=== PATIENT | female | born 1945 | race Caucasian/White ===

== ENCOUNTER 2024-01-26 17:24 | Inpatient (IN) | payer MEDICARE ==
--- NOTE | 2024-01-26 17:38 | ED ---
General Adult HPI - General Chief complaint: Nausea/Vomiting/Diarrhea Stated complaint: Diarrhea Time Seen by Provider: 01/26/24 17:26 Source: patient, EMS Mode of arrival: EMS Limitations: no limitations - History of Present Illness Initial comments: Patient presents to the ED by ambulance for evaluation. Patient states that she has had numerous bouts of diarrhea since very early this morning. Patient states that she was just discharged from a fdc yesterday. Patient states that she has a sacral decubitus ulcer and a home health nurse was arranged for her. She states that her home health nurse advised that she come to the ED today due to her diarrhea. Patient admits to having a dry mouth as well. Patient states that she is paralyzed from her waist down. Patient denies having any pain. Patient denies nausea or vomiting. Patient denies fever or chills, headache, chest pain, dyspnea, cough or cold symptoms, palpitations, dizziness, abdominal pain, bloody or melanotic stool, or any other symptoms or complaints. Patient states that she is unsure of known sick contact. Patient states that she was recently on a course of antibiotics for a sinus infection, but she is unsure of the name of the antibiotics that she was taking. - Related Data Home Medications Medication Instructions Recorded Confirmed Alendronate Sodium [Fosamax] 70 mg PO CARLSON 01/26/24 01/26/24 Apixaban [Eliquis] 5 mg PO BID 01/26/24 01/26/24 FLUoxetine HCL [PROzac] 40 mg PO DAILY 01/26/24 01/26/24 Ferrous Sulfate [Iron] 325 mg PO TID 01/26/24 01/26/24 Furosemide [Lasix] 20 mg PO DAILY 01/26/24 01/26/24 L.acidoph,Paracasei, B.lactis 1 cap PO HS@2200 01/26/24 01/26/24 [Probiotic] Loperamide [Imodium] 2 mg PO QID PRN 01/26/24 01/26/24 Loratadine [Claritin] 10 mg PO DAILY 01/26/24 01/26/24 Midodrine HCl [ProAmatine] 10 mg PO BID 01/26/24 01/26/24 Midodrine HCl [ProAmatine] 10 mg PO DAILY PRN 01/26/24 01/26/24 Mirtazapine [Remeron] 30 mg PO HS@2100 01/26/24 01/26/24 Multivitamins, Thera [Multivitamin 1 tab PO DAILY 01/26/24 01/26/24 (formulary)] Omeprazole [PriLOSEC] 20 mg PO DAILY 01/26/24 01/26/24 Psyllium Husk 100% [Metamucil 1 packet PO DAILY PRN 01/26/24 01/26/24 Packet] Sodium Chloride Tab 1 gm PO Q8H 01/26/24 01/26/24 busPIRone HCl [Buspar] 5 mg PO Q8H 01/26/24 01/26/24 methylPREDNISolone Dose Pack See Taper PO DIRECTED 01/26/24 01/26/24 [Medrol Dose Pack] oxyCODONE-APAP 10-325MG [Percocet 1 tab PO Q4H PRN 01/26/24 01/26/24 10-325 mg] Allergies Allergy/AdvReac Type Severity Reaction Status Date / Time No Known Allergies Allergy Verified 01/26/24 18:12 Review of Systems ROS Statement: Those systems with pertinent positive or pertinent negative responses have been documented in the HPI. ROS Other: All systems not noted in ROS Statement are negative. Past Medical History Past Medical History: No Reported History History of Any Multi-Drug Resistant Organisms: None Reported Past Surgical History: No Surgical Hx Reported Past Psychological History: Anxiety, Depression Smoking Status: Never smoker Past Alcohol Use History: None Reported Past Drug Use History: None Reported General Exam Limitations: no limitations General appearance: alert, in no apparent distress Head exam: Present: atraumatic Eye exam: Present: normal appearance, PERRL ENT exam: Present: mucous membranes dry Neck exam: Present: other (Trachea is in midline). Absent: tenderness, meningismus Respiratory exam: Present: normal lung sounds bilaterally. Absent: respiratory distress, wheezes, rales, rhonchi, stridor Cardiovascular Exam: Present: regular rate, normal rhythm, normal heart sounds, other (Normal radial pulses bilaterally) GI/Abdominal exam: Present: soft. Absent: distended, tenderness, guarding Rectal exam: Present: decreased rectal tone, other (Dark green-colored stool was retrieved on digital rectal examination and sent to lab for Hemoccult testing; stage IV sacral decubitus ulcer with dressing in place). 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 Rosales. He accepts hospital floor admission at this time. I have explained to him that I feel that the patient's low blood pressure readings are likely due to dehydration secondary to her multiple bouts of diarrhea. Patient is C. dif ficile positive. Patient is afebrile. Patient also reports that her blood pressure always runs low. Dr. Rosales is aware that the patient's CT abdomen/pelvis has yet to be read by radiology. Medical Decision Making - Medical Decision Making Was pt. sent in by a medical professional or institution (, PA, MUSIC THERAPY TEACHER, urgent care, hospital, or fdc...) When possible be specific @ -No Did you speak to anyone other than the patient for history (EMS, parent, family, police, friend...)? What history was obtained from this source @ -No Did you review nursing and triage notes (agree or disagree)? Why? @ -I reviewed and agree with nursing and triage notes Were old charts reviewed (outside hosp., previous admission, EMS record, old EKG, old radiological studies, urgent care reports/EKG's, fdc records)? Report findings @ -No old charts were reviewed Differential Diagnosis (chest pain, altered mental status, abdominal pain women, abdominal pain men, vaginal bleeding, weakness, fever, dyspnea, syncope, headache, dizziness, GI bleed, back pain, seizure, CVA, palpatations, mental health, musculoskeletal)? @ -Diarrhea, colitis, enteritis, C. difficile, viral illness, dehydration, electrolyte abnormality, renal disease, hypotension, sepsis, sacral decubitus ulcer, GI bleed, anemia, hypovolemia, medication reaction, gastroenteritis, food toxicity EKG interpreted by me (3pts min.). @ -None done X-rays interpreted by me (1pt min.). @ -None done CT interpreted by me (1pt min.). @ - U/S interpreted by me (1pt. min.). @ -None done What testing was considered but not performed or refused? (CT, X-rays, U/S, labs)? Why? @ -None What meds were considered but not given or refused? Why? @ -None Did you discuss the management of the patient with other professionals (professionals i.e. , PA, MUSIC THERAPY TEACHER, lab, RT, psych nurse, social professionals, survey methodologist, teacher, financial services officer, employment case manager)? Give summary @ -As above Was smoking cessation discussed for >3mins.? @ -No Was critical care preformed (if so, how long)? @ -Yes, 30 minutes Were there social determinants of health that impacted care today? How? (Homelessness, low income, unemployed, alcoholism, drug addiction, transportation, low edu. Level, literacy, decrease access to med. care, retirement, rehab)? @ -No Was there de-escalation of care discussed even if they declined (Discuss DNR or withdrawal of care, Hospice)? DNR status @ -No What co-morbidities impacted this encounter? (DM, HTN, Smoking, COPD, CAD, Cancer, CVA, ARF, Chemo, Hep., AIDS, mental health diagnosis, sleep apnea, morbid obesity)? @ -Paraplegia Was patient admitted / discharged? Hospital course, mention meds given and route, prescriptions, significant lab abnormalities, going to OR and other pertinent info. @ -Patient reports having multiple bouts of diarrhea since early this morning, and she continues to have diarrhea while in the ED. Patient appears dehydrated on examination, and she has had low blood pressure readings. Patient is afebrile. Patient stool C. difficile test is positive. Patient's stool Hemoccult is negative. Patient has been treated with IV fluids and IV anti biotics in the ED. A CT abdomen/pelvis with IV contrast was obtained, but radiology has yet to read the patient CT. Patient has a soft and nontender abdominal exam. I suspect that the patient's symptoms and low blood pressure readings are likely due to dehydration secondary to multiple bouts of diarrhea from C. difficile colitis. Will continue IV fluid hydration, IV antibiotics and blood pressure monitoring. Case has been discussed with Dr. Rosales who has accepted hospital admission. Dr. Rosales and Dr. Pang are aware of the patient's pending CT report and will follow up. Patient and daughter's x 2 are aware of the patient's test results, and they both agree with hospital admission at this time.] Undiagnosed new problem with uncertain prognosis? @ -No Drug Therapy requiring intensive monitoring for toxicity (Heparin, Nitro, Insulin, Cardizem)? @ -No Were any procedures done? @ -No Diagnosis/symptom? @ -C. difficile colitis and diarrhea Acute, or Chronic, or Acute on Chronic? @ -Acute Uncomplicated (without systemic symptoms) or Complicated (systemic symptoms)? @ -Default Side effects of treatment? @ -No Exacerbation, Progression, or Severe Exacerbation? @ -No Poses a threat to life or bodily function? How? (Chest pain, [place], [place], pneumonia, PE, COPD, DKA, ARF, appy, cholecystitis, CVA, Diverticulitis, Homicidal, Suicidal, threat to staff... and all critical care pts) @ -No Diagnosis/symptom? @ -Dehydration and hypotension Acute, or Chronic, or Acute on Chronic? @ -Default Uncomplicated (without systemic symptoms) or Complicated (systemic symptoms)? @ -Default Side effects of treatment? @ -None Exacerbation, Progression, or Severe Exacerbation] @ -No Poses a threat to life or bodily function? @ -Possible - Lab Data Result diagrams: 01/26/24 19:42 01/26/24 19:42 Lab Results 01/26/24 01/26/24 01/26/24 Range/Units 18:32 19:42 19:42 WBC 23.5 H (3.8-10.6) k/uL RBC 3.50 L (3.80-5.40) m/uL Hgb 10.4 L (11.4-16.0) gm/dL Hct 33.9 L (34.0-46.0) % MCV 96.9 (80.0-100.0) fL MCH 29.7 (25.0-35.0) pg MCHC 30.7 L (31.0-37.0) g/dL RDW 16.1 H (11.5-15.5) % Plt Count 470 H (150-450) k/uL MPV 7.2 Neutrophils % 92 % Lymphocytes % 3 % Monocytes % 4 % Eosinophils % 1 % Basophils % 0 % Neutrophils # 21.6 H (1.3-7.7) k/uL Lymphocytes # 0.7 L (1.0-4.8) k/uL Monocytes # 0.9 (0-1.0) k/uL Eosinophils # 0.1 (0-0.7) k/uL Basophils # 0.1 (0-0.2) k/uL Hypochromasia Slight Anisocytosis Slight PT (10.0-12.5) sec INR (<1.2) APTT (22.0-30.0) sec Sodium 133 L (137-145) mmol/L Potassium 3.5 (3.5-5.1) mmol/L Chloride 104 (98-107) mmol/L Carbon Dioxide 24 (22-30) mmol/L Anion Gap 5 mmol/L BUN 15 (7-17) mg/dL Creatinine 0.67 (0.52-1.04) mg/dL Est GFR (CKD-EPI)AfAm >90 (>60 ml/min/1.73 sqM) Est GFR (CKD-EPI)NonAf 83 (>60 ml/min/1.73 sqM) Glucose 123 H (74-99) mg/dL Lactic Ac Sepsis Rflx Plasma Lactic Acid Ronak (0.7-2.0) mmol/L Calcium 7.9 L (8.4-10.2) mg/dL Total Bilirubin 0.6 (0.2-1.3) mg/dL AST 42 H (14-36) U/L ALT 28 (4-34) U/L Alkaline Phosphatase 113 (38-126) U/L Total Protein 5.3 L (6.3-8.2) g/dL Albumin 2.5 L (3.5-5.0) g/dL Lipase 19 L (23-300) U/L Stool Occult Blood Negative (Negative) C. difficile (EIA) Intrp (Negative) 01/26/24 01/26/24 01/26/24 Range/Units 19:42 19:42 19:42 WBC (3.8-10.6) k/uL RBC (3.80-5.40) m/uL Hgb (11.4-16.0) gm/dL Hct (34.0-46.0) % MCV (80.0-100.0) fL MCH (25.0-35.0) pg MCHC (31.0-37.0) g/dL RDW (11.5-15.5) % Plt Count (150-450) k/uL MPV Neutrophils % % Lymphocytes % % Monocytes % % Eosinophils % % Basophils % % Neutrophils # (1.3-7.7) k/uL Lymphocytes # (1.0-4.8) k/uL Monocytes # (0-1.0) k/uL Eosinophils # (0-0.7) k/uL Basophils # (0-0.2) k/uL Hypochromasia Anisocytosis PT 10.4 (10.0-12.5) sec INR 0.9 (<1.2) APTT 25.9 (22.0-30.0) sec Sodium (137-145) mmol/L Potassium (3.5-5.1) mmol/L Chloride (98-107) mmol/L Carbon Dioxide (22-30) mmol/L Anion Gap mmol/L BUN (7-17) mg/dL Creatinine (0.52-1.04) mg/dL Est GFR (CKD-EPI)AfAm (>60 ml/min/1.73 sqM) Est GFR (CKD-EPI)NonAf (>60 ml/min/1.73 sqM) Glucose (74-99) mg/dL Lactic Ac Sepsis Rflx Plasma Lactic Acid Ronak 2.6 H* (0.7-2.0) mmol/L Calcium (8.4-10.2) mg/dL Total Bilirubin (0.2-1.3) mg/dL AST (14-36) U/L ALT (4-34) U/L Alkaline Phosphatase (38-126) U/L Total Protein (6.3-8.2) g/dL Albumin (3.5-5.0) g/dL Lipase (23-300) U/L Stool Occult Blood (Negative) C. difficile (EIA) Intrp Positive A (Negative) 01/26/24 Range/Units 20:22 WBC (3.8-10.6) k/uL RBC (3.80-5.40) m/uL Hgb (11.4-16.0) gm/dL Hct (34.0-46.0) % MCV (80.0-100.0) fL MCH (25.0-35.0) pg MCHC (31.0-37.0) g/dL RDW (11.5-15.5) % Plt Count (150-450) k/uL MPV Neutrophils % % Lymphocytes % % Monocytes % % Eosinophils % % Basophils % % Neutrophils # (1.3-7.7) k/uL Lymphocytes # (1.0-4.8) k/uL Monocytes # (0-1.0) k/uL Eosinophils # (0-0.7) k/uL Basophils # (0-0.2) k/uL Hypochromasia Anisocytosis PT (10.0-12.5) sec INR (<1.2) APTT (22.0-30.0) sec Sodium (137-145) mmol/L Potassium (3.5-5.1) mmol/L Chloride (98-107) mmol/L Carbon Dioxide (22-30) mmol/L Anion Gap mmol/L BUN (7-17) mg/dL Creatinine (0.52-1.04) mg/dL Est GFR (CKD-EPI)AfAm (>60 ml/min/1.73 sqM) Est GFR (CKD-EPI)NonAf (>60 ml/min/1.73 sqM) Glucose (74-99) mg/dL Lactic Ac Sepsis Rflx Y Plasma Lactic Acid Ronak (0.7-2.0) mmol/L Calcium (8.4-10.2) mg/dL Total Bilirubin (0.2-1.3) mg/dL AST (14-36) U/L ALT (4-34) U/L Alkaline Phosphatase (38-126) U/L Total Protein (6.3-8.2) g/dL Albumin (3.5-5.0) g/dL Lipase (23-300) U/L Stool Occult Blood (Negative) C. difficile (EIA) Intrp (Negative) - Radiology Data CT abdomen/pelvis with IV contrast: Critical Care Time Critical Care Time: Yes Total Critical Care Time: 30 Disposition Clinical Impression: Diarrhea, Dehydration, C. difficile colitis, Hypotension Disposition: ADMITTED IP TO THIS HOSP Is patient prescribed a controlled substance at d/c from ED?: No Time of Disposition: 23:12
[2024-01-26] MEDS: SODIUM CHLORIDE 0.9% 1,000 ML IV ONE ×2 (18:26→20:58)
[2024-01-26 20:04] LABS: Anisocytosis Slight; Basophils # (A) 0.1 k/uL (0-0.2); Basophils % (A) 0 %; Eosinophils # (A) 0.1 k/uL (0-0.7); Eosinophils % (A) 1 %; HCT 33.9 % (34.0-46.0); HGB 10.4 gm/dL (11.4-16.0); Hypochromasia Slight; Lymphocytes # (A) 0.7 k/uL (1.0-4.8); Lymphocytes % (A) 3 %; MCH 29.7 pg (25.0-35.0); MCHC 30.7 g/dL (31.0-37.0); MCV 96.9 fL (80.0-100.0); Mean Platelet Volume 7.2; Monocytes # (A) 0.9 k/uL (0-1.0); Monocytes % (A) 4 %; Neutrophils # (A) 21.6 k/uL (1.3-7.7); Neutrophils % (A) 92 %; Platelet Count 470 k/uL (150-450); RDW 16.1 % (11.5-15.5); WBC 23.5 k/uL (3.8-10.6)
[2024-01-26 20:19] LABS: ALT 28 U/L (4-34); AST 42 U/L (14-36); African American GFR (CKD) >90 (>60 ml/min/1.73 sqM); Albumin 2.5 g/dL (3.5-5.0); Alkaline Phosphatase 113 U/L (38-126); Anion Gap 5 mmol/L; Blood Urea Nitrogen 15 mg/dL (7-17); Calcium 7.9 mg/dL (8.4-10.2); Carbon Dioxide 24 mmol/L (22-30); Chloride 104 mmol/L (98-107); Glucose 123 mg/dL (74-99); Lipase 19 U/L (23-300); Non-African American GFR(CKD) 83 (>60 ml/min/1.73 sqM); Potassium 3.5 mmol/L (3.5-5.1); Sodium 133 mmol/L (137-145); Total Bilirubin 0.6 mg/dL (0.2-1.3); Total Protein 5.3 g/dL (6.3-8.2)
[2024-01-26 20:29] LABS: INR 0.9 (<1.2)
[2024-01-26] MEDS ORDERED: SODIUM CHLORIDE 0.9% 500 ML 500 ML IV ONE (20:29)
[2024-01-26 20:30] LABS: Partial Thromboplastin Time 25.9 sec (22.0-30.0); Prothrombin Time 10.4 sec (10.0-12.5)
[2024-01-26] MEDS: HYDROmorphone 0.5 MG/0.5 ML SYRINGE IVP STA (20:55)
[2024-01-26] MEDS: LEVOFLOXACIN 750MG-D5W PMX 750 MG in DEXTROSE/WATER 1 150ML.BAG IVPB STA (21:25)
[2024-01-26] MEDS: metroNIDAZOLE-NS PMX 500 MG in SALINE 1 100ML.BAG IVPB STA (22:10)
[2024-01-26] MEDS ORDERED: NALOXONE 0.4 MG/ML 1 ML VIAL IV PRN (23:13)
--- NOTE | 2024-01-26 23:44 | CT ---
EXAMINATION TYPE: CT abdomen pelvis w con CT DLP: 819.6 mGycm, Automated exposure control for dose reduction was used. DATE OF EXAM: 01/26/2024 9:52 PM COMPARISON: None. CLINICAL INDICATION:Female, 78 years old with history of Diarrhea; Pt comes in via EMS due to c/o loo se stools. TECHNIQUE: CT abdomen and pelvis performed after administration of IV contrast. Multiplanar reformats were generated. Contrast used:100 mL of Isovue 300 with IV Contrast, (none if empty) Oral contrast used: without Oral Contrast (none if empty) FINDINGS: Lower lungs show mild bilateral lower lobe stranding suggestive of subsegmental atelectasis. Slightly more patchy consolidative appearance at the right lung base is concerning for possible superimposed infectious process or aspiration. Small calcified plaque or granuloma in the right lung base. Heart appears normal in size. Density suggests calcifications or postoperative changes in the region of the mitral valve. The liver is unremarkable. Portal vein is enhancing. Mild prominence of the biliary tree status post cholecystectomy, likely normal. Pancreas appears mildly fatty infiltrated without acute finding. Spleen is unremarkable. Mild thicken ing of the adrenals could be related to hyperplasia. Moderate atherosclerotic calcification of the aorta and branches. There is no major vascular occlusio n or critical stenosis seen. No AAA. Moderate-sized hiatal hernia with postoperative changes seen in this area and extending to the stomac h. Stomach is nondistended. Duodenal sweep is mildly prominent. Continuing distally, there is suggest ion of a couple sites of bowel anastomosis in the left abdomen without evidence of small bowel obstru ction. Appendix is not seen with certainty. There is a moderate to large degree of wall thickening seen thro ughout the colon with an appearance that could be considered thumbprinting. There is colonic anastomo sis in the proximal sigmoid region. Thickened colonic wall appears to extend through the sigmoid colo n to the level of the rectum. There is moderate stool throughout. The kidneys appear to enhance symmetrically. Lateral hypodense small renal nodules, not fully charact eristic are probably cysts. Bladder is decompressed, contains a Irwin catheter extending towards the right. There is a small amount of residual urine, and there is gas seen adjacent to the catheter and in the anterior bladder. There are multiple postoperative structures including sheyla along the anterior abdominal wall. Diff use thinning/weakness of the musculature. An element of diffuse haziness of the subcutaneous fat. Generalized osteopenia. There is a sacral decubitus ulcer, and at its depths appears to reach close t o the coccyx, and the appearance of the bone suggests possible chronic osteomyelitis. There is no adryan ar-cut osseous destructive abscess identified at this time. Some presacral fat stranding suggests seq uela of inflammation/infection. There is no clearly acute bony abnormality. IMPRESSION: 1. Nonspecific diffuse colitis, most likely infectious etiology with C. difficile a leading consider ation. Correlate with clinical factors. 2. Mild opacity in the right lung base, could be related to pneumonia or aspiration. Follow-up advis ed. 3. Sacral decubitus ulcer with chronic osteomyelitic changes of the underlying bone. 4. Multiple other chronic and likely several findings, as above.
[2024-01-26] MEDS: SODIUM CHLORIDE 0.9% 1,000 ML IV SCH (23:52)
[2024-01-27 00:18] LABS: Amorphous Sediment,Urine Occasional /hpf; Appearance,Urine Cloudy (Clear); Bacteria,Urine Moderate /hpf; Bilirubin,Urine Negative (Negative); Blood,Urine Trace (Negative); Color,Urine Yellow; Glucose,Urine (UA) Negative (Negative); Hyaline Casts,Urine 14 /lpf (0-2); Ketones,Urine Negative (Negative); Leukocyte Esterase,Urine Large (Negative); Mucus,Urine Occasional /hpf; Nitrite,Urine Positive (Negative); Protein,Urine 1+ (Negative); RBC,Urine 4 /hpf (0-5); Specific Gravity,Urine 1.027 (1.001-1.035); Squamous Epithelial Cell,Urine 3 /hpf (0-4); Triple Phosphate Crystal,Urine Moderate /hpf; Urobilinogen,Urine <2.0 mg/dL (<2.0); WBC,Urine 136 /hpf (0-5)
[2024-01-27] MEDS: MIRTAZAPINE 15 MG TAB PO STA (00:29)
[2024-01-27] MEDS: HYDROmorphone 0.5 MG/0.5 ML SYRINGE IVP PRN (00:30)
[2024-01-27 07:13] LABS: Anisocytosis Slight; Basophils % (A) 0 %; Eosinophils # (A) 0.2 k/uL (0-0.7); Eosinophils % (A) 1 %; HCT 30.9 % (34.0-46.0); HGB 9.3 gm/dL (11.4-16.0); Hypochromasia Moderate; Lymphocytes # (A) 1.2 k/uL (1.0-4.8); Lymphocytes % (A) 6 %; MCH 29.5 pg (25.0-35.0); MCHC 30.1 g/dL (31.0-37.0); MCV 97.8 fL (80.0-100.0); Mean Platelet Volume 7.3; Monocytes # (A) 0.7 k/uL (0-1.0); Monocytes % (A) 4 %; Neutrophils # (A) 18.7 k/uL (1.3-7.7); Neutrophils % (A) 89 %; Platelet Count 460 k/uL (150-450); RBC 3.16 m/uL (3.80-5.40); RDW 16.3 % (11.5-15.5)
[2024-01-27 07:23] LABS: ALT 25 U/L (4-34); AST 29 U/L (14-36); African American GFR (CKD) >90 (>60 ml/min/1.73 sqM); Albumin 2.3 g/dL (3.5-5.0); Alkaline Phosphatase 107 U/L (38-126); Anion Gap 3 mmol/L; Blood Urea Nitrogen 12 mg/dL (7-17); Calcium 7.7 mg/dL (8.4-10.2); Carbon Dioxide 22 mmol/L (22-30); Chloride 111 mmol/L (98-107); Glucose 73 mg/dL (74-99); Non-African American GFR(CKD) 86 (>60 ml/min/1.73 sqM); Potassium 3.3 mmol/L (3.5-5.1); Sodium 136 mmol/L (137-145); Total Bilirubin 0.5 mg/dL (0.2-1.3); Total Protein 4.9 g/dL (6.3-8.2)
[2024-01-27] MEDS: SODIUM CHLORIDE 0.9% 1,000 ML IV ONE (08:00)
[2024-01-27] MEDS: metroNIDAZOLE-NS PMX 500 MG in SALINE 1 100ML.BAG IVPB SCH (09:22)
[2024-01-27] MEDS ORDERED: MIDODRINE 5 MG TAB PO PRN (09:40)
--- NOTE | 2024-01-27 09:50 | P.HPIM ---
History of Present Illness Patient is a 78-year-old female was sent in because of multiple episodes of diarrhea and hyponatremia and dehydration. Patient is found to have C. difficile colitis. Patient was on antibiotics on multiple occasions after her hospitalization change on hospital 2 months ago. Patient was also started on antibiotics couple days ago for sinusitis. Patient does not have any significant fever patient is tachycardic patient does have history of atrial fibrillation patient is going in and out of atrial fibrillation and atrial flutter and sinus tachycardia. Patient is on Eliquis for atrial fibrillation. Patient is hyponatremic from hypovolemia. Patient will be given bolus of IV fluids followed by lactated Ringer's patient's lactate was elevated on admission which has come down at this time patient is hyperchloremic. Patient is also on midodrine for hypotension as an outpatient patient blood pressure is low here as well. REVIEW OF SYSTEMS: CONSTITUTIONAL: No fever, no malaise, no fatigue. HEENT: No recent visual problems or hearing problems. Denied any sore throat. CARDIOVASCULAR: No chest pain, orthopnea, PND, no palpitations, no syncope. PULMONARY: No shortness of breath, no cough, no hemoptysis. GASTROINTESTINAL: As mentioned in HPI NEUROLOGICAL: No headaches, no weakness, no numbness. HEMATOLOGICAL: Denies any bleeding or petechiae. GENITOURINARY: Denies any burning micturition, frequency, or urgency. MUSCULOSKELETAL/RHEUMATOLOGICAL: Denies any joint pain, swelling, or any muscle pain. ENDOCRINE: Denies any polyuria or polydipsia. The rest of the 14-point review of systems is negative. PHYSICAL EXAMINATION: GENERAL: The patient is alert and oriented x3, not in any acute distress. Well developed, well nourished. HEENT: Pupils are round and equally reacting to light. EOMI. No scleral icterus. No conjunctival pallor. Normocephalic, atraumatic. No pharyngeal erythema. No thyromegaly. CARDIOVASCULAR: S1 and S2 present. No murmurs, rubs, or gallops. PULMONARY: Chest is clear to auscultation, no wheezing or crackles. ABDOMEN: Soft, nontender, nondistended, normoactive bowel sounds. No palpable organomegaly. MUSCULOSKELETAL: No joint swelling or deformity. EXTREMITIES: No cyanosis, clubbing, or pedal edema. NEUROLOGICAL: Gross neurological examination did not reveal any focal deficits. Significant generalized weakness and muscle wasting in both legs SKIN: Stage IV sacral decubitus ulcer Assessment and plan -Severe sepsis secondary to C. difficile colitis patient CT of the abdomen showed diffuse colitis probably consistent with C. difficile colitis. Patient will be on oral vancomycin. -Sacral decubitus ulcer stage IV does not appear to be infected but will consult infectious disease. -Atrial fibrillation with rapid ventricular rate IV fluids for now and secondary to hypovolemia resume Eliquis -Hypovolemic hyponatremia: IV fluids as mentioned above Gastroesophageal reflux disease DVT prophylaxis: On Eliquis Past Medical History Past Medical History: No Reported History History of Any Multi-Drug Resistant Organisms: None Reported Past Surgical History: No Surgical Hx Reported Past Psychological History: Anxiety, Depression Smoking Status: Never smoker Past Alcohol Use History: None Reported Past Drug Use History: None Reported Medications and Allergies Home Medications Medication Instructions Recorded Confirmed Type Alendronate Sodium [Fosamax] 70 mg PO CARLSON 01/26/24 01/26/24 History Apixaban [Eliquis] 5 mg PO BID 01/26/24 01/26/24 History FLUoxetine HCL [PROzac] 40 mg PO DAILY 01/26/24 01/26/24 History Ferrous Sulfate [Iron] 325 mg PO TID 01/26/24 01/26/24 History Furosemide [Lasix] 20 mg PO DAILY 01/26/24 01/26/24 History L.acidoph,Paracasei, B.lactis 1 cap PO HS@2200 01/26/24 01/26/24 History [Probiotic] Loperamide [Imodium] 2 mg PO QID PRN 01/26/24 01/26/24 History Loratadine [Claritin] 10 mg PO DAILY 01/26/24 01/26/24 History Midodrine HCl [ProAmatine] 10 mg PO BID 01/26/24 01/26/24 History Midodrine HCl [ProAmatine] 10 mg PO DAILY PRN 01/26/24 01/26/24 History Mirtazapine [Remeron] 30 mg PO HS@2100 01/26/24 01/26/24 History Multivitamins, Thera [Multivitamin 1 tab PO DAILY 01/26/24 01/26/24 History (formulary)] Omeprazole [PriLOSEC] 20 mg PO DAILY 01/26/24 01/26/24 History Psyllium Husk 100% [Metamucil 1 packet PO DAILY PRN 01/26/24 01/26/24 History Packet] Sodium Chloride Tab 1 gm PO Q8H 01/26/24 01/26/24 History busPIRone HCl [Buspar] 5 mg PO Q8H 01/26/24 01/26/24 History methylPREDNISolone Dose Pack See Taper PO DIRECTED 01/26/24 01/26/24 History [Medrol Dose Pack] oxyCODONE-APAP 10-325MG [Percocet 1 tab PO Q4H PRN 01/26/24 01/26/24 History 10-325 mg] Allergies Allergy/AdvReac Type Severity Reaction Status Date / Time No Known Allergies Allergy Verified 01/26/24 18:12 Physical Exam Vitals: Vital Signs Temp Pulse Resp BP Pulse Ox 01/27/24 07:20 133 H 18 95/60 92 L 01/27/24 07:10 98.8 F 133 H 01/27/24 07:00 80 18 95/60 93 L 01/27/24 06:20 79 18 90/59 93 L 01/27/24 05:00 74 16 93/59 94 L 01/27/24 03:37 80 16 99/64 94 L 01/27/24 02:23 77 15 85/56 91 L 01/27/24 00:43 76 19 85/55 94 L 01/26/24 23:21 79 18 72/41 93 L 01/26/24 20:00 88 18 74/40 93 L 01/26/24 18:50 83 18 76/52 94 L 01/26/24 17:25 99.2 F 97 18 82/51 92 L Intake and Output 01/26/24 01/27/24 01/27/24 22:59 06:59 14:59 Other: Weight 66.678 kg Results CBC & Chem 7: 01/27/24 06:38 01/27/24 06:38 Labs: Abnormal Lab Results - Last 24 Hours (Table) 01/26/24 01/26/24 01/26/24 Range/Units 19:42 19:42 19:42 WBC 23.5 H (3.8-10.6) k/uL RBC 3.50 L (3.80-5.40) m/uL Hgb 10.4 L (11.4-16.0) gm/dL Hct 33.9 L (34.0-46.0) % MCHC 30.7 L (31.0-37.0) g/dL RDW 16.1 H (11.5-15.5) % Plt Count 470 H (150-450) k/uL Neutrophils # 21.6 H (1.3-7.7) k/uL Lymphocytes # 0.7 L (1.0-4.8) k/uL Sodium 133 L (137-145) mmol/L Potassium (3.5-5.1) mmol/L Chloride (98-107) mmol/L Glucose 123 H (74-99) mg/dL Plasma Lactic Acid Ronak 2.6 H* (0.7-2.0) mmol/L Calcium 7.9 L (8.4-10.2) mg/dL AST 42 H (14-36) U/L Total Protein 5.3 L (6.3-8.2) g/dL Albumin 2.5 L (3.5-5.0) g/dL Lipase 19 L (23-300) U/L Urine Appearance (Clear) Urine Protein (Negative) Urine Blood (Negative) Urine Nitrite (Negative) Ur Leukocyte Esterase (Negative) Urine WBC (0-5) /hpf Triple Phos Crystals (None) /hpf Amorphous Sediment (None) /hpf Urine Bacteria (None) /hpf Hyaline Casts (0-2) /lpf Urine Mucus (None) /hpf C. difficile (EIA) Intrp (Negative) 01/26/24 01/26/24 01/27/24 Range/Units 19:42 23:12 06:38 WBC 21.0 H (3.8-10.6) k/uL RBC 3.16 L (3.80-5.40) m/uL Hgb 9.3 L (11.4-16.0) gm/dL Hct 30.9 L (34.0-46.0) % MCHC 30.1 L (31.0-37.0) g/dL RDW 16.3 H (11.5-15.5) % Plt Count 460 H (150-450) k/uL Neutrophils # 18.7 H (1.3-7.7) k/uL Lymphocytes # (1.0-4.8) k/uL Sodium (137-145) mmol/L Potassium (3.5-5.1) mmol/L Chloride (98-107) mmol/L Glucose (74-99) mg/dL Plasma Lactic Acid Ronak (0.7-2.0) mmol/L Calcium (8.4-10.2) mg/dL AST (14-36) U/L Total Protein (6.3-8.2) g/dL Albumin (3.5-5.0) g/dL Lipase (23-300) U/L Urine Appearance Cloudy H (Clear) Urine Protein 1+ H (Negative) Urine Blood Trace H (Negative) Urine Nitrite Positive H (Negative) Ur Leukocyte Esterase Large H (Negative) Urine WBC 136 H (0-5) /hpf Triple Phos Crystals Moderate H (None) /hpf Amorphous Sediment Occasional H (None) /hpf Urine Bacteria Moderate H (None) /hpf Hyaline Casts 14 H (0-2) /lpf Urine Mucus Occasional H (None) /hpf C. difficile (EIA) Intrp Positive A (Negative) 01/27/24 Range/Units 06:38 WBC (3.8-10.6) k/uL RBC (3.80-5.40) m/uL Hgb (11.4-16.0) gm/dL Hct (34.0-46.0) % MCHC (31.0-37.0) g/dL RDW (11.5-15.5) % Plt Count (150-450) k/uL Neutrophils # (1.3-7.7) k/uL Lymphocytes # (1.0-4.8) k/uL Sodium 136 L (137-145) mmol/L Potassium 3.3 L (3.5-5.1) mmol/L Chloride 111 H (98-107) mmol/L Glucose 73 L (74-99) mg/dL Plasma Lactic Acid Ronak (0.7-2.0) mmol/L Calcium 7.7 L (8.4-10.2) mg/dL AST (14-36) U/L Total Protein 4.9 L (6.3-8.2) g/dL Albumin 2.3 L (3.5-5.0) g/dL Lipase (23-300) U/L Urine Appearance (Clear) Urine Protein (Negative) Urine Blood (Negative) Urine Nitrite (Negative) Ur Leukocyte Esterase (Negative) Urine WBC (0-5) /hpf Triple Phos Crystals (None) /hpf Amorphous Sediment (None) /hpf Urine Bacteria (None) /hpf Hyaline Casts (0-2) /lpf Urine Mucus (None) /hpf C. difficile (EIA) Intrp (Negative)
[2024-01-27] MEDS: NON FORMULARY DRUG (Alendronate Sodium [Fosamax] 70 MG Tablet) PO SCH (11:07)
[2024-01-27] MEDS: busPIRone HCl 5 MG TAB PO SCH (11:16)
[2024-01-27] MEDS: POTASSIUM CHLORIDE ER 20 MEQ TAB.ER PO STA (11:16)
[2024-01-27] MEDS: MIDODRINE 5 MG TAB PO SCH (11:16)
[2024-01-27] MEDS: DILTIAZEM 125 MG in SODIUM CHLORIDE 0.9% 100 ML IV SCH (11:22)
[2024-01-27] MEDS: LACTATED RINGERS 1,000 ML IV SCH (11:26)
--- NOTE | 2024-01-27 12:05 | P.CRDCN ---
History of Present Illness Consult date: 01/27/24 Consult reason: atrial fibrillation History of present illness: This is Vicente Alexander NP, I'm dictating on behalf of Dr. Coughlin's H&P and A&P The patient was interviewed and examined. HPI: Patient is a pleasant 78-year-old female with a past medical history of anxiety and depression who presented to the hospital at the request of her home care nurse for diffuse diarrhea. Patient reports she has had numerous amounts of diarrhea since yesterday. She was just discharged from a long-term care facility. Patient was sent to the ER by [facility] for the diffuse diarrhea. After arrival to the ER and after beginning treatment for the diarrhea, patient was noted to go into atrial tachycardia. Cardiology was consulted to evaluate this. Patient tested positive for C. difficile diarrhea. There was likely dehydration involved. This morning the patient is found resting comfortably in bed. She continues to appreciate some diarrhea. She denies palpitations or shortness of breath. Her heart rate remains elevated around 115. ROS: [No fever, chills, or rigors] [no cough, phlegm, or expectoration] [no nausea, vomiting, or diarrhea] [no hematuria, dysuria] [no musculoskelatal complaints] [no strokes or seizures] [no skin lesions] EXAMINATION: GENERAL: Well-appearing, well-nourished and in no acute distress. NECK: Supple without JVD or thyromegaly. LUNGS: Breath sounds clear to auscultation bilaterally. Respiration equal and unlabored. No wheezes, rales or rhonchi. HEART: Irregular rate and regular rhythm without murmurs, rubs or gallops. S1 and S2 heard. EXTREMITIES: Normal range of motion, no edema. No clubbing or cyanosis. Peripheral pulses intact and strong. REVIEW OF LABS, ECG & MEDICAL DATA: LABS: White count 21, hemoglobin 9.3, platelets 460, sodium 136, potassium 3.3, BUN 12, creatinine 0.62 EKG: Atrial tachycardia IMAGING: CT of the abdomen and pelvis dated 01/26/2024 demonstrates nonspecific diffuse colitis, most likely infectious etiology with C. difficile a leading consideration. Clinical factors, mild opacity in the right lung base, could be related to pneumonia or aspiration, follow-up advised, sacral decubitus ulcer with chronic osteomyelitic changes of the colon, multiple other chronic and likely several findings as above. VITALS: Temp 98.9, pulse 126, blood pressure 84/64, O2 saturation 93% on room air IMPRESSION: 1. C. difficile diarrhea 2. Sepsis 3. Atrial tachycardia PLAN: Check TSH. Start IV Cardizem, titrate as needed. Sepsis is likely playing a huge role in the patient's current heart rate. As the C. difficile diarrhea is treated the tachycardia should improve. Further recommendations based on patient's clinical course. Thank you for the consult and allowing us to participate in the care of this patient. Past Medical History Past Medical History: No Reported History History of Any Multi-Drug Resistant Organisms: None Reported Past Surgical History: No Surgical Hx Reported Past Psychological History: Anxiety, Depression Smoking Status: Never smoker Past Alcohol Use History: None Reported Past Drug Use History: None Reported Medications and Allergies Home Medications Medication Instructions Recorded Confirmed Type Alendronate Sodium [Fosamax] 70 mg PO CARLSON 01/26/24 01/26/24 History Apixaban [Eliquis] 5 mg PO BID 01/26/24 01/26/24 History FLUoxetine HCL [PROzac] 40 mg PO DAILY 01/26/24 01/26/24 History Ferrous Sulfate [Iron] 325 mg PO TID 01/26/24 01/26/24 History Furosemide [Lasix] 20 mg PO DAILY 01/26/24 01/26/24 History L.acidoph,Paracasei, B.lactis 1 cap PO HS@2200 01/26/24 01/26/24 History [Probiotic] Loperamide [Imodium] 2 mg PO QID PRN 01/26/24 01/26/24 History Loratadine [Claritin] 10 mg PO DAILY 01/26/24 01/26/24 History Midodrine HCl [ProAmatine] 10 mg PO BID 01/26/24 01/26/24 History Midodrine HCl [ProAmatine] 10 mg PO DAILY PRN 01/26/24 01/26/24 History Mirtazapine [Remeron] 30 mg PO HS@2100 01/26/24 01/26/24 History Multivitamins, Thera [Multivitamin 1 tab PO DAILY 01/26/24 01/26/24 History (formulary)] Omeprazole [PriLOSEC] 20 mg PO DAILY 01/26/24 01/26/24 History Psyllium Husk 100% [Metamucil 1 packet PO DAILY PRN 01/26/24 01/26/24 History Packet] Sodium Chloride Tab 1 gm PO Q8H 01/26/24 01/26/24 History busPIRone HCl [Buspar] 5 mg PO Q8H 01/26/24 01/26/24 History methylPREDNISolone Dose Pack See Taper PO DIRECTED 01/26/24 01/26/24 History [Medrol Dose Pack] oxyCODONE-APAP 10-325MG [Percocet 1 tab PO Q4H PRN 01/26/24 01/26/24 History 10-325 mg] Allergies Allergy/AdvReac Type Severity Reaction Status Date / Time No Known Allergies Allergy Verified 01/26/24 18:12 Physical Exam Vitals: Vital Signs Temp Pulse Resp BP Pulse Ox 01/27/24 11:21 151 H 16 83/65 93 L 01/27/24 10:32 98.9 F 126 H 16 84/64 93 L 01/27/24 07:20 133 H 18 95/60 92 L 01/27/24 07:10 98.8 F 133 H 01/27/24 07:00 80 18 95/60 93 L 01/27/24 06:20 79 18 90/59 93 L 01/27/24 05:00 74 16 93/59 94 L 01/27/24 03:37 80 16 99/64 94 L 01/27/24 02:23 77 15 85/56 91 L 01/27/24 00:43 76 19 85/55 94 L 01/26/24 23:21 79 18 72/41 93 L 01/26/24 20:00 88 18 74/40 93 L 01/26/24 18:50 83 18 76/52 94 L 01/26/24 17:25 99.2 F 97 18 82/51 92 L Intake and Output 01/26/24 01/27/24 01/27/24 22:59 06:59 14:59 Other: Weight 66.678 kg Results 01/27/24 06:38 01/27/24 06:38 Cardiac Enzymes 01/26/24 01/27/24 Range/Units 19:42 06:38 AST 42 H 29 (14-36) U/L Coagulation 01/26/24 Range/Units 19:42 PT 10.4 (10.0-12.5) sec APTT 25.9 (22.0-30.0) sec CBC 01/26/24 01/27/24 Range/Units 19:42 06:38 WBC 23.5 H 21.0 H (3.8-10.6) k/uL RBC 3.50 L 3.16 L (3.80-5.40) m/uL Hgb 10.4 L 9.3 L (11.4-16.0) gm/dL Hct 33.9 L 30.9 L (34.0-46.0) % Plt Count 470 H 460 H (150-450) k/uL Comprehensive Metabolic Panel 01/26/24 01/27/24 Range/Units 19:42 06:38 Sodium 133 L 136 L (137-145) mmol/L Potassium 3.5 3.3 L (3.5-5.1) mmol/L Chloride 104 111 H (98-107) mmol/L Carbon Dioxide 24 22 (22-30) mmol/L BUN 15 12 (7-17) mg/dL Creatinine 0.67 0.62 (0.52-1.04) mg/dL Glucose 123 H 73 L (74-99) mg/dL Calcium 7.9 L 7.7 L (8.4-10.2) mg/dL AST 42 H 29 (14-36) U/L ALT 28 25 (4-34) U/L Alkaline Phosphatase 113 107 (38-126) U/L Total Protein 5.3 L 4.9 L (6.3-8.2) g/dL Albumin 2.5 L 2.3 L (3.5-5.0) g/dL Current Medications Generic Name Dose Route Start Last Admin Trade Name Freq PRN Reason Stop Dose Admin Apixaban 5 mg 01/27/24 21:00 Apixaban 5 Mg Tab PO BID [facility] Protocol Buspirone HCl 5 mg 01/27/24 10:00 01/27/24 11:16 Buspirone Hcl 5 Mg Tab PO 5 mg Q8H AISHA Administration Fluoxetine HCl 40 mg 01/28/24 09:00 Fluoxetine Hcl 20 Mg Cap PO DAILY AISHA Hydromorphone HCl 0.5 mg 01/27/24 00:15 01/27/24 00:30 Hydromorphone 0.5 Mg/0.5 Ml Syringe IVP 0.5 mg Q4HR PRN Administration Pain Sodium Chloride 1,000 mls @ 125 mls/hr 01/26/24 23:15 01/27/24 09:21 Saline 0.9% IV 125 mls/hr .Q8H AISHA Administration Metronidazole 500 mg/ IV 100 mls @ 100 mls/hr 01/27/24 08:00 01/27/24 09:22 Solution IVPB 100 mls/hr Q8HR AISHA Administration Protocol Lactated Ringer's 1,000 mls @ 75 mls/hr 01/27/24 09:45 01/27/24 11:26 Lactated Ringers IV 75 mls/hr .[id number] AISHA Administration Diltiazem HCl 125 mg/ Sodium 125 mls @ 0 mls/hr 01/27/24 10:00 01/27/24 11:22 Chloride IV 5 ml/hr .Q0M AISHA 5 mls/hr Administration Protocol Per Protocol Loratadine 10 mg 01/28/24 09:00 Loratadine 10 Mg Tab PO DAILY [facility] Midodrine 10 mg 01/27/24 09:45 01/27/24 11:16 Midodrine 5 Mg Tab PO 10 mg AC-BID AISHA Administration Midodrine 10 mg 01/27/24 09:40 Midodrine 5 Mg Tab PO DAILY PRN Blood Pressure - Low SBP<90 Mirtazapine 30 mg 01/27/24 21:00 Mirtazapine 15 Mg Tab PO HS@2100 [facility] Naloxone HCl 0.2 mg 01/26/24 23:13 Naloxone 0.4 Mg/Ml 1 Ml Vial IV Q2M PRN Opioid Reversal Non-Formulary Medication 70 mg 01/27/24 12:00 01/27/24 11:07 Alendronate Sodium [Fosamax] PO Not Given CARLSON [facility] Oxycodone/Acetaminophen 1 each 01/27/24 09:40 Oxycodone-Apap 10-325mg 1 Each Tab PO Q4H PRN Pain Vancomycin HCl 125 mg 01/27/24 12:00 Vancomycin 125 Mg Capsule PO Q6HR [facility] Protocol Intake and Output 01/26/24 01/27/24 01/27/24 22:59 06:59 14:59 Other: Weight 66.678 kg 01/27/24 06:38 01/27/24 06:38
[2024-01-27 13:33] LABS: Chol/HDL Ratio 2.49 Ratio; LDL Cholesterol,Calculated 49.1 mg/dL (0.0-131.0)
[2024-01-27] MEDS: VANCOMYCIN 125 MG CAPSULE PO SCH ×2 (15:42→16:36)
[2024-01-27] MEDS: oxyCODONE-APAP 10-325MG 1 EACH TAB PO PRN (16:35)
[2024-01-27] MEDS: APIXABAN 5 MG TAB PO SCH (20:26)
[2024-01-27] MEDS: MIRTAZAPINE 15 MG TAB PO SCH (20:26)
[2024-01-28] MEDS: FLUoxetine HCL 20 MG CAP PO SCH (08:41)
[2024-01-28] MEDS: LORATADINE 10 MG TAB PO SCH (08:41)
[2024-01-28 09:08] LABS: Anisocytosis Slight; HGB 9.3 gm/dL (11.4-16.0); Hypochromasia Marked; MCH 29.3 pg (25.0-35.0); MCV 101.1 fL (80.0-100.0); Macrocytosis Slight; Mean Platelet Volume 7.4; Platelet Count 383 k/uL (150-450); RBC 3.16 m/uL (3.80-5.40); RDW 16.2 % (11.5-15.5); WBC 20.7 k/uL (3.8-10.6)
--- NOTE | 2024-01-28 09:12 | P.CONS ---
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 and has been in the bedbound state has also developed a sacral pressure ulcer that is currently being treated at the local retirement patient has been brought into the hospital last evening concerning for bouts of diarrhea and this patient apparently has been recently discharged from the local retirement home health nurse advised the patient to go to the ER because of her diarrhea patient complaining of multiple loose stool denies any blood or mucus in the stool no significant abdominal pain has been attributed to the patient being paralyzed from the waist below the patient denies having any nausea or any vomiting and denies high-grade fever on presentation the hospital the patient did have low-grade fever of 99.2 F patient was not tachycardic or hypotensive not hypoxic or need for supplemental oxygen patient did have a white count of 23.5 with a left shift creatinine 0.67 lactic acid was 2.6 down to 2.0 urine has been positive stool for C. 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 History of Any Multi-Drug Resistant Organisms: None Reported Past Surgical History: Section, Cholecystectomy Additional Past Surgical History / Comment(s): x2 bariatric surgeries, hernia repair, lymph node removal. Past Psychological History: Anxiety, Depression Smoking Status: Never smoker Past Alcohol Use History: None Reported Past Drug Use History: None Reported Medications and Allergies Home Medications Medication Instructions Recorded Confirmed Type Alendronate Sodium [Fosamax] 70 mg PO CARLSON 01/26/24 01/26/24 History Apixaban [Eliquis] 5 mg PO BID 01/26/24 01/26/24 History FLUoxetine HCL [PROzac] 40 mg PO DAILY 01/26/24 01/26/24 History Ferrous Sulfate [Iron] 325 mg PO TID 01/26/24 01/26/24 History Furosemide [Lasix] 20 mg PO DAILY 01/26/24 01/26/24 History L.acidoph,Paracasei, B.lactis 1 cap PO HS@2200 01/26/24 01/26/24 History [Probiotic] Loperamide [Imodium] 2 mg PO QID PRN 01/26/24 01/26/24 History Loratadine [Claritin] 10 mg PO DAILY 01/26/24 01/26/24 History Midodrine HCl [ProAmatine] 10 mg PO BID 01/26/24 01/26/24 History Midodrine HCl [ProAmatine] 10 mg PO DAILY PRN 01/26/24 01/26/24 History Mirtazapine [Remeron] 30 mg PO HS@2100 01/26/24 01/26/24 History Multivitamins, Thera [Multivitamin 1 tab PO DAILY 01/26/24 01/26/24 History (formulary)] Omeprazole [PriLOSEC] 20 mg PO DAILY 01/26/24 01/26/24 History Psyllium Husk 100% [Metamucil 1 packet PO DAILY PRN 01/26/24 01/26/24 History Packet] Sodium Chloride Tab 1 gm PO Q8H 01/26/24 01/26/24 History busPIRone HCl [Buspar] 5 mg PO Q8H 01/26/24 01/26/24 History methylPREDNISolone Dose Pack See Taper PO DIRECTED 01/26/24 01/26/24 History [Medrol Dose Pack] oxyCODONE-APAP 10-325MG [Percocet 1 tab PO Q4H PRN 01/26/24 01/26/24 History 10-325 mg] Allergies Allergy/AdvReac Type Severity Reaction Status Date / Time No Known Allergies Allergy Verified 01/26/24 18:12 Physical Exam Vitals: Vital Signs Temp Pulse Resp BP Pulse Ox 01/27/24 12:46 94 20 99/65 93 L 01/27/24 12:00 140 H 19 86/64 92 L 01/27/24 11:21 151 H 16 83/65 93 L 01/27/24 10:32 98.9 F 126 H 16 84/64 93 L 01/27/24 07:20 133 H 18 95/60 92 L 01/27/24 07:10 98.8 F 133 H 01/27/24 07:00 80 18 95/60 93 L 01/27/24 06:20 79 18 90/59 93 L 01/27/24 05:00 74 16 93/59 94 L 01/27/24 03:37 80 16 99/64 94 L 01/27/24 02:23 77 15 85/56 91 L 01/27/24 00:43 76 19 85/55 94 L 01/26/24 23:21 79 18 72/41 93 L 01/26/24 20:00 88 18 74/40 93 L 01/26/24 18:50 83 18 76/52 94 L 01/26/24 17:25 99.2 F 97 18 82/51 92 L Intake and Output 01/26/24 01/27/24 01/27/24 22:59 06:59 14:59 Other: Weight 66.678 kg 66.678 kg Results CBC & Chem 7: 01/28/24 08:41 01/27/24 06:38 Labs: Abnormal Lab Results - Last 24 Hours (Table) 01/26/24 01/26/24 01/26/24 Range/Units 19:42 19:42 19:42 WBC 23.5 H (3.8-10.6) k/uL RBC 3.50 L (3.80-5.40) m/uL Hgb 10.4 L (11.4-16.0) gm/dL Hct 33.9 L (34.0-46.0) % MCHC 30.7 L (31.0-37.0) g/dL RDW 16.1 H (11.5-15.5) % Plt Count 470 H (150-450) k/uL Neutrophils # 21.6 H (1.3-7.7) k/uL Lymphocytes # 0.7 L (1.0-4.8) k/uL Sodium 133 L (137-145) mmol/L Potassium (3.5-5.1) mmol/L Chloride (98-107) mmol/L Glucose 123 H (74-99) mg/dL Plasma Lactic Acid Ronak 2.6 H* (0.7-2.0) mmol/L Calcium 7.9 L (8.4-10.2) mg/dL AST 42 H (14-36) U/L Total Protein 5.3 L (6.3-8.2) g/dL Albumin 2.5 L (3.5-5.0) g/dL Lipase 19 L (23-300) U/L Urine Appearance (Clear) Urine Protein (Negative) Urine Blood (Negative) Urine Nitrite (Negative) Ur Leukocyte Esterase (Negative) Urine WBC (0-5) /hpf Triple Phos Crystals (None) /hpf Amorphous Sediment (None) /hpf Urine Bacteria (None) /hpf Hyaline Casts (0-2) /lpf Urine Mucus (None) /hpf C. difficile (EIA) Intrp (Negative) 01/26/24 01/26/24 01/27/24 Range/Units 19:42 23:12 06:38 WBC 21.0 H (3.8-10.6) k/uL RBC 3.16 L (3.80-5.40) m/uL Hgb 9.3 L (11.4-16.0) gm/dL Hct 30.9 L (34.0-46.0) % MCHC 30.1 L (31.0-37.0) g/dL RDW 16.3 H (11.5-15.5) % Plt Count 460 H (150-450) k/uL Neutrophils # 18.7 H (1.3-7.7) k/uL Lymphocytes # (1.0-4.8) k/uL Sodium (137-145) mmol/L Potassium (3.5-5.1) mmol/L Chloride (98-107) mmol/L Glucose (74-99) mg/dL Plasma Lactic Acid Ronak (0.7-2.0) mmol/L Calcium (8.4-10.2) mg/dL AST (14-36) U/L Total Protein (6.3-8.2) g/dL Albumin (3.5-5.0) g/dL Lipase (23-300) U/L Urine Appearance Cloudy H (Clear) Urine Protein 1+ H (Negative) Urine Blood Trace H (Negative) Urine Nitrite Positive H (Negative) Ur Leukocyte Esterase Large H (Negative) Urine WBC 136 H (0-5) /hpf Triple Phos Crystals Moderate H (None) /hpf Amorphous Sediment Occasional H (None) /hpf Urine Bacteria Moderate H (None) /hpf Hyaline Casts 14 H (0-2) /lpf Urine Mucus Occasional H (None) /hpf C. difficile (EIA) Intrp Positive A (Negative) 01/27/24 Range/Units 06:38 WBC (3.8-10.6) k/uL RBC (3.80-5.40) m/uL Hgb (11.4-16.0) gm/dL Hct (34.0-46.0) % MCHC (31.0-37.0) g/dL RDW (11.5-15.5) % Plt Count (150-450) k/uL Neutrophils # (1.3-7.7) k/uL Lymphocytes # (1.0-4.8) k/uL Sodium 136 L (137-145) mmol/L Potassium 3.3 L (3.5-5.1) mmol/L Chloride 111 H (98-107) mmol/L Glucose 73 L (74-99) mg/dL Plasma Lactic Acid Ronak (0.7-2.0) mmol/L Calcium 7.7 L (8.4-10.2) mg/dL AST (14-36) U/L Total Protein 4.9 L (6.3-8.2) g/dL Albumin 2.3 L (3.5-5.0) g/dL Lipase (23-300) U/L Urine Appearance (Clear) Urine Protein (Negative) Urine Blood (Negative) Urine Nitrite (Negative) Ur Leukocyte Esterase (Negative) Urine WBC (0-5) /hpf Triple Phos Crystals (None) /hpf Amorphous Sediment (None) /hpf Urine Bacteria (None) /hpf Hyaline Casts (0-2) /lpf Urine Mucus (None) /hpf C. difficile (EIA) Intrp (Negative) Assessment and Plan Plan: 1patient presented to hospital with the diarrhea in this patient who did have elevated white count also noticed to have pancolitis on the CT highly suspicious for C. difficile colitis and stool for C. difficile came back positive. 2CT abdominal pelvis also mention possible chronic osteomyelitis of the sacral wound however keeping in mind patient with active C. difficile colitis we will hold on adding any systemic and by therapy for the same wound will be reevaluated and if any purulence cultures will be obtained before advising any antibiotic therapy reported this was explained to the daughter in layman terms for now continue with local wound care with wet-to-dry dressing and wound care should be consulted. 3avoid antimotility agent if persistent diarrhea to add Questran for symptomatic relief also advised to increase her probiotic and yogurt intake. We will follow on clinical condition and cultures to further adjust medication if needed Thank you for this consultation we will follow the patient along with you Dictation was produced using MAPPING dictation software. please excuse any grammatical, word or spelling errors. Time with Patient: Greater than 30
[2024-01-28 09:25] LABS: African American GFR (CKD) >90 (>60 ml/min/1.73 sqM); Anion Gap 4 mmol/L; Blood Urea Nitrogen 9 mg/dL (7-17); Calcium 8.1 mg/dL (8.4-10.2); Carbon Dioxide 19 mmol/L (22-30); Chloride 116 mmol/L (98-107); Glucose 74 mg/dL (74-99); Magnesium 1.8 mg/dL (1.6-2.3); Non-African American GFR(CKD) 88 (>60 ml/min/1.73 sqM); Potassium 3.3 mmol/L (3.5-5.1); Sodium 139 mmol/L (137-145)
[2024-01-28] MEDS ORDERED: Potassium Replacement Protocol 1 EACH MISC MISCELLANE PRN (09:31)
[2024-01-28] MEDS ORDERED: Magnesium Replacement Protocol 1 EACH MISC MISCELLANE PRN (09:44)
[2024-01-28] MEDS: MAGNESIUM SULFATE-D5W PMX 1 GM in DEXTROSE/WATER 1 100ML.BAG IVPB ONE (10:24)
[2024-01-28] MEDS: POTASSIUM CHLORIDE ER 20 MEQ TAB.ER PO SCH (10:24)
--- NOTE | 2024-01-28 10:56 | P.PN ---
Subjective Progress Note Date: 01/28/24 Principal diagnosis: Atrial tachycardia/atrial fibrillation The patient is a pleasant 78-year-old female patient who was admitted to the hospital with C. difficile diarrhea and she was noted to be tachycardic with an EKG showing atrial tachycardia versus atrial flutter. January 28, 2024 The patient was seen and evaluated this morning. She is in sinus mechanism. No echocardiogram. No report of any chest pain or chest discomfort or shortness of breath or dizziness or lightheadedness. No echocardiogram. I am going to obtain an echo for further assessment of the ejection fraction and rule out cardiomyopathy. Currently she is on oral anticoagulation. The pressure is elie inal and she is on midodrine. The examination is remarkable for overall stable vital signs with clear breathing sounds bilaterally and distant heart sounds. Assessment C. difficile diarrhea Marginally low blood pressure Atrial tachycardia versus atrial flutter Multiple comorbid conditions Plan Continue the current medical regimen Continue oral anticoagulation Follow-up with the patient Objective - Vital Signs Vital signs: Vital Signs Temp 98 F 01/28/24 08:00 Pulse 72 01/28/24 08:00 Resp 16 01/28/24 08:00 BP 115/67 01/28/24 08:00 Pulse Ox 96 01/28/24 08:00 FiO2 Intake & Output 01/27/24 01/28/24 01/28/24 18:59 06:59 18:59 Intake Total 130.333 240 Output Total 420 400 Balance 130.333 -420 -160 Weight 66.678 kg Intake: Intake, IV Titration 12.333 Amount Diltiazem 125 mg In 12.333 Sodium Chloride 0.9% 100 ml @ Per Protocol IV .Q0M [facility] Rx#:[id number] Oral 118 240 Output: Urine 420 400 Other: Voiding Method Indwelling Catheter Indwelling Catheter Indwelling Catheter - Labs CBC & Chem 7: 01/28/24 08:41 01/28/24 08:41 Labs: Abnormal Lab Results - Last 24 Hours (Table) 01/28/24 01/28/24 Range/Units 08:41 08:41 WBC 20.7 H (3.8-10.6) k/uL RBC 3.16 L (3.80-5.40) m/uL Hgb 9.3 L (11.4-16.0) gm/dL Hct 32.0 L (34.0-46.0) % MCV 101.1 H (80.0-100.0) fL MCHC 29.0 L (31.0-37.0) g/dL RDW 16.2 H (11.5-15.5) % Potassium 3.3 L (3.5-5.1) mmol/L Chloride 116 H (98-107) mmol/L Carbon Dioxide 19 L (22-30) mmol/L Calcium 8.1 L (8.4-10.2) mg/dL Microbiology - Last 24 Hours (Table) 01/26/24 19:42 Blood Culture - Preliminary Blood 01/26/24 19:42 Blood Culture - Preliminary Blood
--- NOTE | 2024-01-28 15:30 | P.PN ---
Subjective Progress Note Date: 01/28/24 Patient is a 78-year-old female was sent in because of multiple episodes of diarrhea and hyponatremia and dehydration. Patient is found to have C. difficile colitis. Patient was on antibiotics on multiple occasions after her hospitalization change on hospital 2 months ago. Patient was also started on an tibiotics couple days ago for sinusitis. Patient does not have any significant fever patient is tachycardic patient does have history of atrial fibrillation patient is going in and out of atrial fibrillation and atrial flutter and sinus tachycardia. Patient is on Eliquis for atrial fibrillation. Patient is hyponatremic from hypovolemia. Patient will be given bolus of IV fluids followed by lactated Ringer's patient's lactate was elevated on admission which has come down at this time patient is hyperchloremic. Patient is also on midodrine for hypotension as an outpatient patient blood pressure is low here as well. 01/28/2024 Patient is evaluated in follow up today on the medical floor. C.Dif was found to be positive and patient is on oral vancomycin and IV flagyl with improvement in diarrhea. Has gone 3 times overnight and once this morning so far. There is concern as patient has a large sacral decubitus ulcer requiring wound vac which was removed prior to hospitalization and does not want the wound to be contaminated. Review of Systems Constitutional: Denied any fatigue denied any fever. Cardio vascular: denied any chest pain, palpitations Gastrointestinal: denied any nausea, vomiting, diarrhea Pulmonary: Denied any shortness of breath cough Neurologic denied any new focal deficits All inpatient medications were reviewed and appropriate changes in these medications as dictated in the interval history and assessment and plan. PHYSICAL EXAMINATION: GENERAL: The patient is alert and oriented x3, not in any acute distress. Well developed, well nourished. HEENT: Pupils are round and equally reacting to light. EOMI. No scleral icterus. No conjunctival pallor. Normocephalic, atraumatic. No pharyngeal erythema. No thyromegaly. CARDIOVASCULAR: S1 and S2 present. No murmurs, rubs, or gallops. PULMONARY: Chest is clear to auscultation, no wheezing or crackles. ABDOMEN: Soft, nontender, nondistended, normoactive bowel sounds. No palpable organomegaly. MUSCULOSKELETAL: No joint swelling or deformity. EXTREMITIES: No cyanosis, clubbing, or pedal edema. NEUROLOGICAL: Gross neurological examination did not reveal any focal deficits. Significant generalized weakness and muscle wasting in both legs SKIN: Stage IV sacral decubitus ulcer Assessment and plan -Severe sepsis secondary to C. difficile colitis patient CT of the abdomen showed diffuse colitis probably consistent with C. difficile colitis. Patient will be on oral vancomycin. -Leukocytosis secondary to above -Sacral decubitus ulcer stage IV does not appear to be infected but will consult infectious disease. Was requiring wound vac. [facility] wound care will be consulted for evaluation. -Atrial fibrillation with rapid ventricular rate improved with hydration. Patient remains anticoagulated with eliquis. Now rate controlled. 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 -Anxiety/Depression DVT prophylaxis: On Eliquis GI prophylaxis: Pepcid Full Code The impression and plan of care has been dictated by Chhaya Rea, Nurse Practitioner as directed. Dr. Booker MD I have performed a history and physical examination and medical decision making of this patient, discussed the same with the dictator, and agree with the dictators assessment and plan as written, documented as a scribe. Based on total visit time, I have performed more than 50% of this visit. Objective - Vital Signs Vital signs: Vital Signs Temp 98 F 01/28/24 08:00 Pulse 74 01/28/24 11:56 Resp 18 01/28/24 11:56 BP 116/67 01/28/24 11:56 Pulse Ox 96 01/28/24 11:56 FiO2 Intake & Output 01/27/24 01/28/24 01/28/24 18:59 06:59 18:59 Intake Total 130.333 240 Output Total 420 400 Balance 130.333 -420 -160 Weight 66.678 kg Intake: Intake, IV Titration 12.333 Amount Diltiazem 125 mg In 12.333 Sodium Chloride 0.9% 100 ml @ Per Protocol IV .Q0M [facility] Rx#:[id number] Oral 118 240 Output: Urine 420 400 Other: Voiding Method Indwelling Catheter Indwelling Catheter Indwelling Catheter # Bowel Movements 1 - Labs CBC & Chem 7: 01/28/24 08:41 01/28/24 08:41 Labs: Abnormal Lab Results - Last 24 Hours (Table) 01/28/24 01/28/24 Range/Units 08:41 08:41 WBC 20.7 H (3.8-10.6) k/uL RBC 3.16 L (3.80-5.40) m/uL Hgb 9.3 L (11.4-16.0) gm/dL Hct 32.0 L (34.0-46.0) % MCV 101.1 H (80.0-100.0) fL MCHC 29.0 L (31.0-37.0) g/dL RDW 16.2 H (11.5-15.5) % Potassium 3.3 L (3.5-5.1) mmol/L Chloride 116 H (98-107) mmol/L Carbon Dioxide 19 L (22-30) mmol/L Calcium 8.1 L (8.4-10.2) mg/dL Microbiology - Last 24 Hours (Table) 01/26/24 19:42 Blood Culture - Preliminary Blood 01/26/24 19:42 Blood Culture - Preliminary Blood Assessment and Plan Time with Patient: Less than 30
--- NOTE | 2024-01-28 17:32 | CA ---
Transthoracic Echo Report Name: Elva Grier Age: 78 Gender: F : 1945 Exam Date: 01/28/2024 15:15 Exam Location: [facility] Ht (in): 66 Wt (lb): 147 Ordering Physician: Dangelo Craig MD ([id number]) Attending/Referring Phys: Three Knife Trimmer Tenisha Medley RDCS Procedure CPT: Indications: a. fib Cardiac Hx: Technical Quality: Good Contrast 1: Total Dose (mL): Contrast 2: Total Dose (mL): MEASUREMENTS (Male / Female) Normal Values 2D ECHO LV Diastolic Diameter PLAX 5.2 cm 4.2 - 5.9 / 3.9 - 5.3 cm LV Systolic Diameter PLAX 4.1 cm IVS Diastolic Thickness 1.0 cm 0.6 - 1.0 / 0.6 - 0.9 cm LVPW Diastolic Thickness 1.1 cm 0.6 - 1.0 / 0.6 - 0.9 cm LV Relative Wall Thickness 0.4 RV Internal Dim ED PLAX 3.5 cm LA Systolic Diameter LX 3.9 cm 3.0 - 4.0 / 2.7 - 3.8 cm LV Diastolic Volume MOD 4C 91.2 cm??? LV Systolic Volume MOD 4C 48.6 cm??? LV Ejection Fraction MOD 4C 46.7 % LV Cardiac Index MOD 4C 1588.2 cm???/min???m??? LV Diastolic Length 4C 8.5 cm LV Systolic Length 4C 7.0 cm LV Diastolic Volume MOD 2C 77.3 cm??? LV Systolic Volume MOD 2C 30.5 cm??? LV Ejection Fraction MOD 2C 60.5 % LV Cardiac Index MOD 2C 1744.2 cm???/min???m??? LV Diastolic Length 2C 7.7 cm LV Systolic Length 2C 6.3 cm LA Volume 76.6 cm??? 18 - 58 / 22 - 52 cm??? LA Volume Index 43.3 cm???/m??? 16 - 28 cm???/m??? M-MODE Aortic Root Diameter MM 3.3 cm AV Cusp Separation MM 2.4 cm DOPPLER AV Peak Velocity 143.1 cm/s AV Peak Gradient 8.2 mmHg MV Area PHT 4.4 cm??? Mitral E Point Velocity 132.7 cm/s Mitral A Point Velocity 86.9 cm/s Mitral E to A Ratio 1.5 MV Deceleration Time 174.0 ms TR Peak Velocity 219.0 cm/s TR Peak Gradient 19.2 mmHg Right Ventricular Systolic Press 24.2 mmHg FINDINGS Left Ventricle Left ventricular ejection fraction is estimated at 55-60 %. Left ventricular cavity size normal. Mildly increased septal wall thickness. Mildly increased posterior wall thickness. Right Ventricle Mild right ventricular dilatation. Right ventricular systolic pressure within normal limits. Right Atrium Normal right atrial size. No right atrial thrombus or mass seen. Left Atrium Mildly increased left atrial diameter. Severely increased left atrial volume. Mildly increased left atrial area. Mitral Valve Mitral valve thickened. Mild mitral annular calcification. Trace mitral regurgitation. Aortic Valve Trileaflet aortic valve. No aortic valve stenosis or regurgitation. Tricuspid Valve Structurally normal tricuspid valve. Mild tricuspid regurgitation. Pulmonic Valve Structurally normal pulmonic valve. No pulmonic regurgitation. Pericardium No pericardial or pleural effusion. Aorta Normal size aortic root and proximal ascending aorta. CONCLUSIONS Normal LV function Dilated left atrium thickened mitral valve leaflets with trace mitral regurgitation Previewed by: Dr. Yusef Naidu MD (Electronically Signed) Final Date: 28 January 2024 17:31
[2024-01-28] MEDS: FAMOTIDINE 20 MG TAB PO SCH (20:33)
[2024-01-29] MEDS: SODIUM CHLORIDE 0.9% 1,000 ML IV SCH (08:45)
--- NOTE | 2024-01-29 11:55 | P.PN ---
Subjective Progress Note Date: 01/29/24 Patient is a 78-year-old female was sent in because of multiple episodes of diarrhea and hyponatremia and dehydration. Patient is found to have C. difficile colitis. Patient was on antibiotics on multiple occasions after her hospitalization change on hospital 2 months ago. Patient was also started on an tibiotics couple days ago for sinusitis. Patient does not have any significant fever patient is tachycardic patient does have history of atrial fibrillation patient is going in and out of atrial fibrillation and atrial flutter and sinus tachycardia. Patient is on Eliquis for atrial fibrillation. Patient is hyponatremic from hypovolemia. Patient will be given bolus of IV fluids followed by lactated Ringer's patient's lactate was elevated on admission which has come down at this time patient is hyperchloremic. Patient is also on midodrine for hypotension as an outpatient patient blood pressure is low here as well. 01/28/2024 Patient is evaluated in follow up today on the medical floor. C.Dif was found to be positive and patient is on oral vancomycin and IV flagyl with improvement in diarrhea. Has gone 3 times overnight and once this morning so far. There is concern as patient has a large sacral decubitus ulcer requiring wound vac which was removed prior to hospitalization and does not want the wound to be contaminated. 01/29/2024 Patient is evaluated in follow up. Resting in bed. No acute complaints today. The amount of stool and frequency has significantly improved. Remains on IV flagyl and oral cipro ID following. Pending consultation with wound care regarding wound vac to the sacral decub. Was following with [facility] prior and had wound vac on at home. Was removed before coming to the hospital. Blood work from today not available yet. Pending reports from outside hospital. Hemodynamically she is stable. Review of Systems Constitutional: Denied any fatigue denied any fever. Cardio vascular: denied any chest pain, palpitations Gastrointestinal: denied any nausea, vomiting, diarrhea Pulmonary: Denied any shortness of breath cough Neurologic denied any new focal deficits All inpatient medications were reviewed and appropriate changes in these medi cations as dictated in the interval history and assessment and plan. PHYSICAL EXAMINATION: GENERAL: The patient is alert and oriented x3, not in any acute distress. Well developed, well nourished. HEENT: Pupils are round and equally reacting to light. EOMI. No scleral icterus. No conjunctival pallor. Normocephalic, atraumatic. No pharyngeal erythema. No thyromegaly. CARDIOVASCULAR: S1 and S2 present. No murmurs, rubs, or gallops. PULMONARY: Chest is clear to auscultation, no wheezing or crackles. ABDOMEN: Soft, nontender, nondistended, normoactive bowel sounds. No palpable organomegaly. MUSCULOSKELETAL: No joint swelling or deformity. EXTREMITIES: No cyanosis, clubbing, or pedal edema. NEUROLOGICAL: Gross neurological examination did not reveal any focal deficits. Significant generalized weakness and muscle wasting in both legs SKIN: Stage IV sacral decubitus ulcer Assessment and plan -Severe sepsis secondary to C. difficile colitis patient CT of the abdomen showed diffuse colitis probably consistent with C. difficile colitis. Patient will be on oral vancomycin. -Leukocytosis secondary to above -Sacral decubitus ulcer stage IV does not appear to be infected but will consult infectious disease. Was requiring wound vac. [facility] wound care will be consulted for evaluation. -Atrial fibrillation with rapid ventricular rate improved with hydration. Patient remains anticoagulated with eliquis. Now rate controlled. -Hypovolemic hyponatremia: IV fluids as mentioned above Repeat blood work pending and will repeat labs again in the AM. Monitor electrolytes. 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 -Anxiety/Depression DVT prophylaxis: On Eliquis GI prophylaxis: Pepcid Full Code The impression and plan of care has been dictated by Chhaya Rea, Nurse Practitioner as directed. Dr. Booker MD I have performed a history and physical examination and medical decision making of this patient, discussed the same with the dictator, and agree with the dictators assessment and plan as written, documented as a scribe. Based on total visit time, I have performed more than 50% of this visit. Objective - Vital Signs Vital signs: Vital Signs Temp 98.4 F 01/29/24 08:00 Pulse 66 01/29/24 11:41 Resp 16 01/29/24 11:41 BP 132/71 01/29/24 11:41 Pulse Ox 97 01/29/24 11:41 FiO2 Intake & Output 01/28/24 01/29/24 01/29/24 18:59 06:59 18:59 Intake Total 1380 240 Output Total 600 550 375 Balance 780 -550 -135 Weight 66.678 kg 84.5 kg Intake: Oral 1380 240 Output: Urine 600 550 375 Other: Voiding Method Indwelling Catheter Indwelling Catheter Indwelling Catheter # Bowel Movements 1 1 - Labs CBC & Chem 7: 01/28/24 08:41 01/28/24 08:41 Labs: Microbiology - Last 24 Hours (Table) 01/26/24 19:42 Stool Culture - Preliminary Stool 01/26/24 19:42 Blood Culture - Preliminary Blood 01/26/24 19:42 Blood Culture - Preliminary Blood Assessment and Plan Time with Patient: Less than 30
[2024-01-29 13:37] LABS: African American GFR (CKD) >90 (>60 ml/min/1.73 sqM); Anion Gap 4 mmol/L; Blood Urea Nitrogen 5 mg/dL (7-17); Carbon Dioxide 17 mmol/L (22-30); Chloride 117 mmol/L (98-107); Glucose 74 mg/dL (74-99); Magnesium 1.9 mg/dL (1.6-2.3); Non-African American GFR(CKD) 88 (>60 ml/min/1.73 sqM); Potassium 3.2 mmol/L (3.5-5.1); Sodium 138 mmol/L (137-145)
[2024-01-29 13:41] LABS: Anisocytosis Slight; Basophils # (A) 0.1 k/uL (0-0.2); Basophils % (A) 0 %; Eosinophils # (A) 0.3 k/uL (0-0.7); Eosinophils % (A) 2 %; HCT 32.7 % (34.0-46.0); Hypochromasia Moderate; Lymphocytes # (A) 1.4 k/uL (1.0-4.8); Lymphocytes % (A) 9 %; MCH 29.9 pg (25.0-35.0); MCHC 30.6 g/dL (31.0-37.0); MCV 97.9 fL (80.0-100.0); Macrocytosis Slight; Mean Platelet Volume 8.1; Monocytes # (A) 0.6 k/uL (0-1.0); Monocytes % (A) 4 %; Neutrophils # (A) 12.5 k/uL (1.3-7.7); Neutrophils % (A) 84 %; Platelet Count 420 k/uL (150-450); RBC 3.34 m/uL (3.80-5.40); RDW 16.5 % (11.5-15.5); WBC 14.9 k/uL (3.8-10.6)
[2024-01-29] MEDS: POTASSIUM CHLORIDE ER 20 MEQ TAB.ER PO SCH (13:51)
--- NOTE | 2024-01-29 15:25 | P.PN ---
Subjective Progress Note Date: 01/29/24 Atrial tachycardia/atrial fibrillation The patient is a pleasant 78-year-old female patient who was admitted to the hospital with C. difficile diarrhea and she was noted to be tachycardic with an EKG showing atrial tachycardia versus atrial flutter. January 28, 2024 The patient was seen and evaluated this morning. She is in sinus mechanism. No echocardiogram. No report of any chest pain or chest discomfort or shortness of breath or dizziness or lightheadedness. No echocardiogram. I am going to obt ain an echo for further assessment of the ejection fraction and rule out cardiomyopathy. Currently she is on oral anticoagulation. The pressure is marginal and she is on midodrine. The examination is remarkable for overall stable vital signs with clear breathing sounds bilaterally and distant heart sounds. 01/28 Patient states that diarrhea and abdominal discomfort is improved. She remains in atrial fibrillation. She has been off Cardizem drip. Echocardiogram reveals EF of 55 to 60%, trace mitral regurgitation. Blood pressure 132/71, heart rate 66, pulse ox 97% on room air. Blood pressure readings are improved today. Potassium is 3.2 and has been replaced. Examination: Breath sounds are clear bilaterally, heart regular. Assessment C. difficile diarrhea Marginally low blood pressure, improved Atrial tachycardia versus atrial flutter Multiple comorbid conditions Plan Continue the current medical regimen Continue oral anticoagulation with Eliquis Follow-up with the patient Nurse practitioner note has been reviewed, I agree with documented findings and plan of care. Patient was seen and examined. Objective - Vital Signs Vital signs: Vital Signs Temp 98.4 F 01/29/24 08:00 Pulse 66 01/29/24 11:41 Resp 16 01/29/24 11:41 BP 132/71 01/29/24 11:41 Pulse Ox 97 01/29/24 11:41 FiO2 Intake & Output 01/28/24 01/29/24 01/29/24 18:59 06:59 18:59 Intake Total 1380 240 Output Total 600 550 375 Balance 780 -550 -135 Weight 66.678 kg 84.5 kg Intake: Oral 1380 240 Output: Urine 600 550 375 Other: Voiding Method Indwelling Catheter Indwelling Catheter Indwelling Catheter # Bowel Movements 1 1 - Labs CBC & Chem 7: 01/29/24 12:09 01/29/24 12:09 Labs: Microbiology - Last 24 Hours (Table) 01/26/24 19:42 Stool Culture - Preliminary Stool 01/26/24 19:42 Blood Culture - Preliminary Blood 01/26/24 19:42 Blood Culture - Preliminary Blood
[2024-01-29] MEDS: CHOLESTYRAMINE (WITH SUGAR) 4 GM PACKET PO SCH (17:13)
--- NOTE | 2024-01-30 09:17 | P.PN ---
Subjective Progress Note Date: 01/28/24 Principal diagnosis: Reason for follow-up visit of colitis and a sacral pressure ulcer Patient is a 78-year-old female with a past medical history significant for bladder and colon cancer spine injury in this patient who is paralyzed lower extremity since August 2023 and has been in the bedbound state has also developed a sacral pressure ulcer, patient been brought to the hospital concerning for diarrhea and the patient did have a nonspecific diffuse colitis on the CT stool for significantly positive. On today's evaluation that is 01/28/2024,the patient denies any fever or any chills, patient is breathing comfortably on room air, the patient denies chest pain shortness of breath and no significant cough, patient denies abdominal pain, no nausea vomiting and diarrhea has slowed down. Patient white count is down to 20.7, creatinine 0.56 Objective - Vital Signs Vital signs: Vital Signs Temp 98 F 01/28/24 08:00 Pulse 74 01/28/24 11:56 Resp 18 01/28/24 11:56 BP 116/67 01/28/24 11:56 Pulse Ox 96 01/28/24 11:56 FiO2 Intake & Output 01/27/24 01/28/24 01/28/24 18:59 06:59 18:59 Intake Total 130.333 480 Output Total 420 400 Balance 130.333 -420 80 Weight 66.678 kg Intake: Intake, IV Titration 12.333 Amount Diltiazem 125 mg In 12.333 Sodium Chloride 0.9% 100 ml @ Per Protocol IV .Q0M [facility] Rx#:[id number] Oral 118 480 Output: Urine 420 400 Other: Voiding Method Indwelling Catheter Indwelling Catheter Indwelling Catheter # Bowel Movements 1 - Exam GENERAL DESCRIPTION: An elderly female lying in bed in no distress RESPIRATORY SYSTEM: Unlabored breathing , decreased breath sounds at bases HEART: S1 S2 regular rate and rhythm , ABDOMEN: Soft , no tenderness Stage IV sacral pressure ulcer with no significant slough tissue surrounding redness or foul-smelling drainage - Labs CBC & Chem 7: 01/29/24 12:09 01/29/24 12:09 Labs: Abnormal Lab Results - Last 24 Hours (Table) 01/28/24 01/28/24 Range/Units 08:41 08:41 WBC 20.7 H (3.8-10.6) k/uL RBC 3.16 L (3.80-5.40) m/uL Hgb 9.3 L (11.4-16.0) gm/dL Hct 32.0 L (34.0-46.0) % MCV 101.1 H (80.0-100.0) fL MCHC 29.0 L (31.0-37.0) g/dL RDW 16.2 H (11.5-15.5) % Potassium 3.3 L (3.5-5.1) mmol/L Chloride 116 H (98-107) mmol/L Carbon Dioxide 19 L (22-30) mmol/L Calcium 8.1 L (8.4-10.2) mg/dL Microbiology - Last 24 Hours (Table) 01/26/24 19:42 Blood Culture - Preliminary Blood 01/26/24 19:42 Blood Culture - Preliminary Blood Assessment and Plan (1) Stage IV pressure ulcer of sacral region Current Visit: Yes Status: Acute Code(s): L89.154 - PRESSURE ULCER OF SACRAL REGION, STAGE 4 SNOMED Code(s): 46990696310972 (2) Leukocytosis Current Visit: Yes Status: Acute Code(s): D72.829 - ELEVATED WHITE BLOOD CELL COUNT, UNSPECIFIED SNOMED Code(s): 560189168 (3) C. difficile colitis Current Visit: Yes Status: Acute Code(s): A04.72 - ENTEROCOLITIS D/T CLOSTRIDIUM DIFFICILE, NOT SPCF RECUR SNOMED Code(s): 362056954 Plan: 1patient presented to hospital with the diarrhea in this patient who did have elevated white count also noticed to have pancolitis on the CT highly suspicious for C. difficile colitis and stool for C. difficile came back positive. 2CT abdominal pelvis also mention possible chronic osteomyelitis of the sacral wound however sacral wound base with minimal slough tissue no surrounding redness or foul-smelling drainage we will hold on any systemic antibiotic therapy on the sacral ulcer because of ongoing cellulitis 3. Continue with the vancomycin and IV Flagyl Dictation was produced using [employer] dictation software. please excuse any grammatical, word or spelling errors. Time with Patient: Less than 30
--- NOTE | 2024-01-30 09:18 | P.PN ---
Subjective Progress Note Date: 01/29/24 Patient is a 78-year-old female with a past medical history significant for bladder and colon cancer spine injury in this patient who is paralyzed lower extremity since August 2023 and has been in the bedbound state has also developed a sacral pressure ulcer, patient been brought to the hospital concerning for diarrhea and the patient did have a nonspecific diffuse colitis on the CT stool for significantly positive. On today's evaluation that is 01/29/2024,the patient remains to be afebrile, patient is on room air not requiring supplemental oxygen and denies any shortness of breath no chest pain or cough.Patient denies having any nausea or vomiting, no abdominal pain and diarrhea has slowed and slightly forming up. Patient white count is 14.9 creatinine 0.57 Objective - Vital Signs Vital signs: Vital Signs Temp 98.4 F 01/29/24 08:00 Pulse 66 01/29/24 11:41 Resp 16 01/29/24 11:41 BP 132/71 01/29/24 11:41 Pulse Ox 97 01/29/24 11:41 FiO2 Intake & Output 01/28/24 01/29/24 01/29/24 18:59 06:59 18:59 Intake Total 1380 240 Output Total 600 550 375 Balance 780 -550 -135 Weight 66.678 kg 84.5 kg Intake: Oral 1380 240 Output: Urine 600 550 375 Other: Voiding Method Indwelling Catheter Indwelling Catheter Indwelling Catheter # Bowel Movements 1 1 - Exam GENERAL DESCRIPTION: An elderly female lying in bed in no distress RESPIRATORY SYSTEM: Unlabored breathing , decreased breath sounds at bases HEART: S1 S2 regular rate and rhythm , ABDOMEN: Soft , no tenderness - Labs CBC & Chem 7: 01/29/24 12:09 01/29/24 12:09 Labs: Microbiology - Last 24 Hours (Table) 01/26/24 19:42 Stool Culture - Preliminary Stool 01/26/24 19:42 Blood Culture - Preliminary Blood 01/26/24 19:42 Blood Culture - Preliminary Blood Assessment and Plan (1) C. difficile colitis Current Visit: Yes Status: Acute Code(s): A04.72 - ENTEROCOLITIS D/T CLOSTRIDIUM DIFFICILE, NOT SPCF RECUR SNOMED Code(s): 738601200 (2) Leukocytosis Current Visit: Yes Status: Acute Code(s): D72.829 - ELEVATED WHITE BLOOD CELL COUNT, UNSPECIFIED SNOMED Code(s): 023176021 (3) Stage IV pressure ulcer of sacral region Current Visit: Yes Status: Acute Code(s): L89.154 - PRESSURE ULCER OF SACRAL REGION, STAGE 4 SNOMED Code(s): 44832599414002 Plan: 1patient presented to hospital with the diarrhea in this patient who did have elevated white count also noticed to have pancolitis on the CT highly suspicious for C. difficile colitis and stool for C. difficile came back positive. 2CT abdominal pelvis also mention possible chronic osteomyelitis of the sacral wound however sacral wound base with minimal slough tissue no surrounding redn ess or foul-smelling drainage we will hold on any systemic antibiotic therapy on the sacral ulcer, continue with local wound care may benefit from wound VAC 3. Patient to continue with the vancomycin for underlying C. difficile colitis and watch her white count closely Dictation was produced using [employer] dictation software. please excuse any grammatical, word or spelling errors. Time with Patient: Less than 30
[2024-01-30 11:59] LABS: Anisocytosis Slight; Basophils # (A) 0.1 k/uL (0-0.2); Basophils % (A) 1 %; Eosinophils # (A) 0.2 k/uL (0-0.7); Eosinophils % (A) 2 %; HCT 30.9 % (34.0-46.0); HGB 9.2 gm/dL (11.4-16.0); Hypochromasia Marked; Lymphocytes # (A) 1.8 k/uL (1.0-4.8); Lymphocytes % (A) 22 %; MCH 29.5 pg (25.0-35.0); MCHC 29.8 g/dL (31.0-37.0); Macrocytosis Slight; Mean Platelet Volume 7.9; Monocytes # (A) 0.5 k/uL (0-1.0); Monocytes % (A) 6 %; Neutrophils # (A) 5.7 k/uL (1.3-7.7); Neutrophils % (A) 67 %; Platelet Count 427 k/uL (150-450); RBC 3.12 m/uL (3.80-5.40); RDW 16.3 % (11.5-15.5); WBC 8.5 k/uL (3.8-10.6)
--- NOTE | 2024-01-30 12:01 | P.CONS ---
History of Present Illness - Reason for Consult Consult date: 01/30/24 wound care - History of Present Illness This is an 78-year-old patient known to the wound care center with a stage IV pressure ulcer to the sacrum. Patient does have bone exposed. He she has been utilizing negative pressure wound VAC. Patient was recently discharged from extended care facility and was home for approximately 12 hours. The date acquired was: 09/26/2023. The wound has been in treatment 1 weeks. The wound is currently classified as a Category/Stage IV wound with etiology of Pressure Ulcer and is located on the Dorsal Coccyx. The wound measures 4.8cm length x 3.3cm width x 2.5cm depth; 12.441cm^2 area and 31.102cm^3 volume. There is bone, Fat Layer (Subcutaneous Tissue), and fascia exposed. Tunneling has been noted at :00. Undermining begins at :00 and ends at :00. There is a medium amount of purulent drainage noted. The wound margin is distinct with the outline attached to the wound base. There is small (1-33%) red, pink granulation within the wound bed. There is a small (1-33%) amount of necrotic tissue within the wound bed. The periwound skin appearance had no abnormalities noted for texture. The periwound skin appearance exhibited: Erythema. The periwound skin appearance did not exhibit: Dry/Scaly, Maceration, Atrophie Kylah, Cyanosis, Ecchymosis, Hemosiderin Staining, Mottled, Pallor, Rubor. The surrounding wound skin color is noted with erythema which is circumferential. Periwound temperature was noted as No Abnormality. Review Of Systems: Constitutional: No fever, no chills, no night sweats. No weight change. No weakness, fatigue or lethargy. No daytime sleepiness. Integumentary:reports wounds, no lesions. No rash or pruritus. No unusual bruising. No change in hair or nails. Physical exam: General Appearance: Alert, cooperative, no distress, appears stated age. Skin: See HPI all other Skin color, texture, tugor normal, no rashes or lesions. Neurologic: Alert oriented x3 Assessment: 1. Stage IV pressure ulcer of sacral region 2. Incomplete paraplegia Plan: 1. Apply Adaptic over exposed bone, continue with negative pressure wound VAC at home 150 mmHg black foam. Change Jerica Thursday Saturday. Patient return to the wound care center on February 06 at 245. Thank you for the consultation any questions please contact the wound care center Past Medical History Past Medical History: Cancer Additional Past Medical History / Comment(s): hypotension, bladder and colon cancer, spinal injury post chiropractor appointment in August 2023 leading to being paralyzed in lower extremities. History of Any Multi-Drug Resistant Organisms: None Reported Past Surgical History: Section, Cholecystectomy Additional Past Surgical History / Comment(s): x2 bariatric surgeries, hernia repair, lymph node removal. Past Psychological History: Anxiety, Depression Smoking Status: Never smoker Past Alcohol Use History: None Reported Past Drug Use History: None Reported Medications and Allergies Home Medications Medication Instructions Recorded Confirmed Type Alendronate Sodium [Fosamax] 70 mg PO CARLSON 01/26/24 01/26/24 History Apixaban [Eliquis] 5 mg PO BID 01/26/24 01/26/24 History FLUoxetine HCL [PROzac] 40 mg PO DAILY 01/26/24 01/26/24 History Ferrous Sulfate [Iron] 325 mg PO TID 01/26/24 01/26/24 History Furosemide [Lasix] 20 mg PO DAILY 01/26/24 01/26/24 History L.acidoph,Paracasei, B.lactis 1 cap PO HS@2200 01/26/24 01/26/24 History [Probiotic] Loperamide [Imodium] 2 mg PO QID PRN 01/26/24 01/26/24 History Loratadine [Claritin] 10 mg PO DAILY 01/26/24 01/26/24 History Midodrine HCl [ProAmatine] 10 mg PO BID 01/26/24 01/26/24 History Midodrine HCl [ProAmatine] 10 mg PO DAILY PRN 01/26/24 01/26/24 History Mirtazapine [Remeron] 30 mg PO HS@2100 01/26/24 01/26/24 History Multivitamins, Thera [Multivitamin 1 tab PO DAILY 01/26/24 01/26/24 History (formulary)] Omeprazole [PriLOSEC] 20 mg PO DAILY 01/26/24 01/26/24 History Psyllium Husk 100% [Metamucil 1 packet PO DAILY PRN 01/26/24 01/26/24 History Packet] Sodium Chloride Tab 1 gm PO Q8H 01/26/24 01/26/24 History busPIRone HCl [Buspar] 5 mg PO Q8H 01/26/24 01/26/24 History methylPREDNISolone Dose Pack See Taper PO DIRECTED 01/26/24 01/26/24 History [Medrol Dose Pack] oxyCODONE-APAP 10-325MG [Percocet 1 tab PO Q4H PRN 01/26/24 01/26/24 History 10-325 mg] Allergies Allergy/AdvReac Type Severity Reaction Status Date / Time No Known Allergies Allergy Verified 01/26/24 18:12 Physical Exam Vitals: Vital Signs Temp Pulse Resp BP Pulse Ox 01/30/24 11:34 60 16 111/75 95 01/30/24 08:00 97.8 F 62 17 125/74 96 01/30/24 03:05 97.5 F L 70 16 121/73 95 01/29/24 23:58 97.8 F 71 16 128/75 95 01/29/24 19:49 98.0 F 63 16 125/68 96 01/29/24 15:59 98.1 F 69 16 137/63 97 Intake and Output 01/29/24 01/30/24 01/30/24 22:59 06:59 14:59 Intake Total 480 780 Output Total 950 850 500 Balance -470 -850 280 Intake: Oral 480 780 Output: Urine 950 850 500 Other: Voiding Method Indwelling Catheter Indwelling Catheter Indwelling Catheter Results CBC & Chem 7: 01/29/24 12:09 01/29/24 12:09 Labs: Abnormal Lab Results - Last 24 Hours (Table) 01/29/24 01/29/24 Range/Units 12:09 12:09 WBC 14.9 H (3.8-10.6) k/uL RBC 3.34 L (3.80-5.40) m/uL Hgb 10.0 L (11.4-16.0) gm/dL Hct 32.7 L (34.0-46.0) % MCHC 30.6 L (31.0-37.0) g/dL RDW 16.5 H (11.5-15.5) % Neutrophils # 12.5 H (1.3-7.7) k/uL Potassium 3.2 L (3.5-5.1) mmol/L Chloride 117 H (98-107) mmol/L Carbon Dioxide 17 L (22-30) mmol/L BUN 5 L (7-17) mg/dL Calcium 8.0 L (8.4-10.2) mg/dL Microbiology - Last 24 Hours (Table) 01/26/24 19:42 Stool Culture - Final Stool 01/26/24 19:42 Blood Culture - Preliminary Blood 01/26/24 19:42 Blood Culture - Preliminary Blood Assessment and Plan (1) Paraplegia, incomplete Current Visit: Yes Status: Acute Code(s): G82.22 - PARAPLEGIA, INCOMPLETE SNOMED Code(s): 884556715825358 (2) Stage IV pressure ulcer of sacral region Current Visit: Yes Status: Acute Code(s): L89.154 - PRESSURE ULCER OF SACRAL REGION, STAGE 4 SNOMED Code(s): 87413900928050
[2024-01-30 12:54] LABS: African American GFR (CKD) >90 (>60 ml/min/1.73 sqM); Anion Gap 4 mmol/L; Blood Urea Nitrogen 6 mg/dL (7-17); Calcium 7.3 mg/dL (8.4-10.2); Carbon Dioxide 17 mmol/L (22-30); Chloride 117 mmol/L (98-107); Glucose 60 mg/dL (74-99); Magnesium 1.9 mg/dL (1.6-2.3); Non-African American GFR(CKD) 84 (>60 ml/min/1.73 sqM); Sodium 138 mmol/L (137-145)
[2024-01-30] MEDS: POTASSIUM CHLORIDE ER 20 MEQ TAB.ER PO SCH (13:25)
--- NOTE | 2024-01-30 13:36 | P.PN ---
Subjective Progress Note Date: 01/30/24 Atrial tachycardia/atrial fibrillation The patient is a pleasant 78-year-old female patient who was admitted to the hospital with C. difficile diarrhea and she was noted to be tachycardic with an EKG showing atrial tachycardia versus atrial flutter. January 28, 2024 The patient was seen and evaluated this morning. She is in sinus mechanism. No echocardiogram. No report of any chest pain or chest discomfort or shortness of breath or dizziness or lightheadedness. No echocardiogram. I am going to obt ain an echo for further assessment of the ejection fraction and rule out cardiomyopathy. Currently she is on oral anticoagulation. The pressure is marginal and she is on midodrine. The examination is remarkable for overall stable vital signs with clear breathing sounds bilaterally and distant heart sounds. 01/28 Patient states that diarrhea and abdominal discomfort is improved. She remains in atrial fibrillation. She has been off Cardizem drip. Echocardiogram reveals EF of 55 to 60%, trace mitral regurgitation. Blood pressure 132/71, heart rate 66, pulse ox 97% on room air. Blood pressure readings are improved today. Potassium is 3.2 and has been replaced. Examination: Breath sounds are clear bilaterally, heart regular. 01/29 Patient is seen today in follow-up. Diarrhea is improving. Patient remains in sinus rhythm at this time. Heart rate is controlled. She is maintained on Eliquis. Examination: Breath sounds are clear bilaterally, heart regular. Assessment C. difficile diarrhea Marginally low blood pressure, improved Atrial tachycardia versus atrial flutter Multiple comorbid conditions Plan Continue the current medical regimen Continue oral anticoagulation with Eliquis Cardiology will sign off this case and follow on an as-needed basis. Please reconsult for any new concerns. Patient may follow-up in the office in one to 2 weeks. Nurse practitioner note has been reviewed, I agree with documented findings and plan of care. Patient was seen and examined. Objective - Vital Signs Vital signs: Vital Signs Temp 97.8 F 01/30/24 08:00 Pulse 60 01/30/24 11:34 Resp 16 01/30/24 11:34 BP 111/75 01/30/24 11:34 Pulse Ox 95 01/30/24 11:34 FiO2 Intake & Output 01/29/24 01/30/24 01/30/24 18:59 06:59 18:59 Intake Total 720 898 Output Total 1325 850 500 Balance -605 -850 398 Intake: Oral 720 898 Output: Urine 9632 761 500 Other: Voiding Method Indwelling Catheter Indwelling Catheter Indwelling Catheter # Bowel Movements 1 - Labs CBC & Chem 7: 01/30/24 11:05 01/30/24 11:05 Labs: Abnormal Lab Results - Last 24 Hours (Table) 01/29/24 01/29/24 01/30/24 Range/Units 12:09 12:09 11:05 WBC 14.9 H (3.8-10.6) k/uL RBC 3.34 L 3.12 L (3.80-5.40) m/uL Hgb 10.0 L 9.2 L (11.4-16.0) gm/dL Hct 32.7 L 30.9 L (34.0-46.0) % MCHC 30.6 L 29.8 L (31.0-37.0) g/dL RDW 16.5 H 16.3 H (11.5-15.5) % Neutrophils # 12.5 H (1.3-7.7) k/uL Potassium 3.2 L (3.5-5.1) mmol/L Chloride 117 H (98-107) mmol/L Carbon Dioxide 17 L (22-30) mmol/L BUN 5 L (7-17) mg/dL Glucose (74-99) mg/dL Calcium 8.0 L (8.4-10.2) mg/dL 01/30/24 Range/Units 11:05 WBC (3.8-10.6) k/uL RBC (3.80-5.40) m/uL Hgb (11.4-16.0) gm/dL Hct (34.0-46.0) % MCHC (31.0-37.0) g/dL RDW (11.5-15.5) % Neutrophils # (1.3-7.7) k/uL Potassium 3.0 L (3.5-5.1) mmol/L Chloride 117 H (98-107) mmol/L Carbon Dioxide 17 L (22-30) mmol/L BUN 6 L (7-17) mg/dL Glucose 60 L (74-99) mg/dL Calcium 7.3 L (8.4-10.2) mg/dL Microbiology - Last 24 Hours (Table) 01/26/24 19:42 Stool Culture - Final Stool 01/26/24 19:42 Blood Culture - Preliminary Blood 01/26/24 19:42 Blood Culture - Preliminary Blood
[2024-01-31 06:08] LABS: African American GFR (CKD) >90 (>60 ml/min/1.73 sqM); Anion Gap 4 mmol/L; Blood Urea Nitrogen 6 mg/dL (7-17); Calcium 7.6 mg/dL (8.4-10.2); Carbon Dioxide 17 mmol/L (22-30); Chloride 117 mmol/L (98-107); Glucose 74 mg/dL (74-99); Non-African American GFR(CKD) 88 (>60 ml/min/1.73 sqM); Potassium 3.5 mmol/L (3.5-5.1); Sodium 138 mmol/L (137-145)
--- NOTE | 2024-01-31 09:12 | P.PN ---
Subjective Progress Note Date: 01/30/24 Patient is a 78-year-old female was sent in because of multiple episodes of diarrhea and hyponatremia and dehydration. Patient is found to have C. difficile colitis. Patient was on antibiotics on multiple occasions after her hospitalization change on hospital 2 months ago. Patient was also started on antibiotics couple days ago for sinusitis. Patient does not have any significant fever patient is tachycardic patient does have history of atrial fibrillation patient is going in and out of atrial fibrillation and atrial flutter and sinus tachycardia. Patient is on Eliquis for atrial fibrillation. Patient is hyponatremic from hypovolemia. Patient will be given bolus of IV fluids followed by lactated Ringer's patient's lactate was elevated on admission which has come down at this time patient is hyperchloremic. Patient is also on midodrine for hypotension as an outpatient patient blood pressure is low here as well. 01/28/2024 Patient is evaluated in follow up today on the medical floor. C.Dif was found to be positive and patient is on oral vancomycin and IV flagyl with improvement in diarrhea. Has gone 3 times overnight and once this morning so far. There is concern as patient has a large sacral decubitus ulcer requiring wound vac which was removed prior to hospitalization and does not want the wound to be contaminated. 01/29/2024 Patient is evaluated in follow up. Resting in bed. No acute complaints today. The amount of stool and frequency has significantly improved. Remains on IV flagyl and oral cipro ID following. Pending consultation with wound care regarding wound vac to the sacral decub. Was following with [facility] wound [facility] prior and had wound vac on at home. Was removed before coming to the hospital. Blood work from today not available yet. Pending reports from outside hospital. Hemodynamically she is stable. 01/30/2024 Patient is seen in follow-up today with cardiology and infectious disease following. Patient remains on antibiotics and continues to await wound care consult for sacral decubitus. Patient to continue with the and will discuss further with infectious disease regarding discharge planning if patient will require IV antibiotics versus oral. Plan is for patient to go to [facility] and currently awaiting insurance authorization. Patient is afebrile with no reports of chest pain or shortness of breath. Discussed with patient about avoiding IV narcotics will adjust pain medications. Encouraged yogurt 3 times daily with meals Patient is maintained on oral vancomycin and will complete 10 days on discharge per ID Review of Systems Constitutional: Denied any fatigue denied any fever. Cardio vascular: denied any chest pain, palpitations Gastrointestinal: denied any nausea, vomiting, diarrhea Pulmonary: Denied any shortness of breath cough Neurologic denied any new focal deficits, reports of generalized weakness and continued pain All inpatient medications were reviewed and appropriate changes in these medications as dictated in the interval history and assessment and plan. PHYSICAL EXAMINATION: GENERAL: The patient is alert and oriented x3, not in any acute distress. Well developed, well nourished. Elderly appearing, obese HEENT: Pupils are round and equally reacting to light. EOMI. No scleral icterus. No conjunctival pallor. Normocephalic, atraumatic. No pharyngeal erythema. No thyromegaly. CARDIOVASCULAR: S1 and S2 present. No murmurs, rubs, or gallops. PULMONARY: Chest is clear to auscultation, no wheezing or crackles. ABDOMEN: Soft, nontender, nondistended, normoactive bowel sounds. No palpable organomegaly. MUSCULOSKELETAL: No joint swelling or deformity. EXTREMITIES: No cyanosis, clubbing, or pedal edema. NEUROLOGICAL: Gross neurological examination did not reveal any focal deficits. Significant generalized weakness and muscle wasting in both legs SKIN: Stage IV sacral decubitus ulcer Assessment and plan -Severe sepsis secondary to C. difficile colitis patient CT of the abdomen showed diffuse colitis probably consistent with C. difficile colitis. Patient will be on oral vancomycin. -Leukocytosis secondary to above -Sacral decubitus ulcer stage IV does not appear to be infected but will consult infectious disease. Was requiring wound vac. [facility] wound care will be consulted for evaluation. -Atrial fibrillation with rapid ventricular rate improved with hydration. Patient remains anticoagulated with eliquis. Now rate controlled. -Hypovolemic hyponatremia: IV fluids as mentioned above Repeat blood work pending and will repeat labs again in the AM. Monitor electrolytes. 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 -Anxiety/Depression DVT prophylaxis: On Eliquis GI prophylaxis: Pepcid Full Code Plan: Patient is maintained on oral vancomycin with infectious disease following and reports diarrhea is improving Continue with wound care and wound care is consulted requiring possible wound VAC Continue monitor worker Currently sinus rhythm maintained on oral Eliquis Case management following working on ECF for continued wound care and antibiotic therapy. Patient will require insurance authorization Possible discharge planning From 48 hours The impression and plan of care has been dictated by Liliya Florez, Nurse Practitioner as directed. Dr. Booker MD I have performed a history and physical examination and medical decision making of this patient, discussed the same with the dictator, and agree with the dictators assessment and plan as written, documented as a scribe. Based on total visit time, I have performed more than 50% of this visit. Objective - Vital Signs Vital signs: Vital Signs Temp 97.8 F 01/30/24 08:00 Pulse 62 01/30/24 08:00 Resp 17 01/30/24 08:00 BP 125/74 01/30/24 08:00 Pulse Ox 96 01/30/24 08:00 FiO2 Intake & Output 01/29/24 01/30/24 01/30/24 18:59 06:59 18:59 Intake Total 720 780 Output Total 1325 850 125 Balance -605 -850 655 Intake: Oral 720 780 Output: Urine 1325 850 125 Other: Voiding Method Indwelling Catheter Indwelling Catheter Indwelling Catheter # Bowel Movements 1 - Labs CBC & Chem 7: 01/30/24 11:05 01/31/24 05:42 Labs: Abnormal Lab Results - Last 24 Hours (Table) 01/29/24 01/29/24 Range/Units 12:09 12:09 WBC 14.9 H (3.8-10.6) k/uL RBC 3.34 L (3.80-5.40) m/uL Hgb 10.0 L (11.4-16.0) gm/dL Hct 32.7 L (34.0-46.0) % MCHC 30.6 L (31.0-37.0) g/dL RDW 16.5 H (11.5-15.5) % Neutrophils # 12.5 H (1.3-7.7) k/uL Potassium 3.2 L (3.5-5.1) mmol/L Chloride 117 H (98-107) mmol/L Carbon Dioxide 17 L (22-30) mmol/L BUN 5 L (7-17) mg/dL Calcium 8.0 L (8.4-10.2) mg/dL Microbiology - Last 24 Hours (Table) 01/26/24 19:42 Stool Culture - Final Stool 01/26/24 19:42 Blood Culture - Preliminary Blood 01/26/24 19:42 Blood Culture - Preliminary Blood
[2024-01-31] MEDS: POTASSIUM CHLORIDE ER 20 MEQ TAB.ER PO STA (13:21)
--- NOTE | 2024-01-31 17:07 | P.PN ---
Subjective Progress Note Date: 01/30/24 Principal diagnosis: Reason for follow-up visit of colitis and a sacral pressure ulcer Patient is a 78-year-old female with a past medical history significant for bladder and colon cancer spine injury in this patient who is paralyzed lower extremity since August 2023 and has been in the bedbound state has also developed a sacral pressure ulcer, patient been brought to the hospital concerning for diarrhea and the patient did have a nonspecific diffuse colitis on the CT stool for significantly positive. On today's evaluation that is 01/30/2024, the patient continues to be afebrile, the patient is on room air and breathing comfortably, the Pt denies having any chest pain or cough, the patient denies having any abdominal pain no vomiting and diarrhea has slowed down. Patient white normalized to 8.5, creatinine 0.66 Objective - Vital Signs Vital signs: Vital Signs Temp 97.5 F L 01/30/24 16:00 Pulse 78 01/30/24 16:00 Resp 18 01/30/24 16:00 BP 108/63 01/30/24 16:00 Pulse Ox 95 01/30/24 16:00 FiO2 - Exam GENERAL DESCRIPTION: An elderly female lying in bed in no distress RESPIRATORY SYSTEM: Unlabored breathing , decreased breath sounds at bases HEART: S1 S2 regular rate and rhythm , ABDOMEN: Soft , no tenderness - Labs CBC & Chem 7: 01/30/24 11:05 01/31/24 05:42 Labs: Abnormal Lab Results - Last 24 Hours (Table) 01/31/24 Range/Units 05:42 Chloride 117 H (98-107) mmol/L Carbon Dioxide 17 L (22-30) mmol/L BUN 6 L (7-17) mg/dL Calcium 7.6 L (8.4-10.2) mg/dL Assessment and Plan (1) C. difficile colitis Current Visit: Yes Status: Acute Code(s): A04.72 - ENTEROCOLITIS D/T CLOSTRIDIUM DIFFICILE, NOT SPCF RECUR SNOMED Code(s): 719967099 (2) Leukocytosis Current Visit: Yes Status: Acute Code(s): D72.829 - ELEVATED WHITE BLOOD CELL COUNT, UNSPECIFIED SNOMED Code(s): 319573471 (3) Stage IV pressure ulcer of sacral region Current Visit: Yes Status: Acute Code(s): L89.154 - PRESSURE ULCER OF SACRAL REGION, STAGE 4 SNOMED Code(s): 06864581304181 Plan: 1patient presented to hospital with the diarrhea in this patient who did have elevated white count also noticed to have pancolitis on the CT highly suspicious for C. difficile colitis and stool for C. difficile came back positive. 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 Patient seem to improvement in diarrhea continue with the vancomycin encouraged to increase her probiotic and yogurt intake Dictation was produced using [employer] software. please excuse any grammatical, word or spelling errors.
--- NOTE | 2024-01-31 17:08 | P.PN ---
Subjective Progress Note Date: 01/31/24 Principal diagnosis: Reason for follow-up visit of colitis and a sacral pressure ulcer Patient is a 78-year-old female with a past medical history significant for bladder and colon cancer spine injury in this patient who is paralyzed lower extremity since August 2023 and has been in the bedbound state has also developed a sacral pressure ulcer, patient been brought to the hospital concerning for diarrhea and the patient did have a nonspecific diffuse colitis on the CT stool for significantly positive. On today's evaluation that is 01/31/2024, Patient is afebrile patient is currently on room air and denies having any shortness of breath, the patient denies any chest pain or cough, the patient denies any nausea vomiting did not have any abdominal pain and did have improvement in diarrhea 1 small bowel movement this morning. Patient did have a creatinine 0.56 no CBC was done today Objective - Vital Signs Vital signs: Vital Signs Temp 97.6 F 01/31/24 07:12 Pulse 72 01/31/24 07:12 Resp 16 01/31/24 07:12 BP 117/71 01/31/24 07:12 Pulse Ox 92 L 01/31/24 07:12 FiO2 Intake & Output 01/30/24 01/31/24 01/31/24 18:59 06:59 18:59 Intake Total 1498 Output Total 775 650 400 Balance 723 -650 -400 Weight 84.5 kg Intake: Oral 1498 Output: Drainage 0 Sacrum 0 Urine 775 650 400 Other: Voiding Method Indwelling Catheter Indwelling Catheter Indwelling Catheter # Bowel Movements 1 - Exam GENERAL DESCRIPTION: An elderly female lying in bed in no distress RESPIRATORY SYSTEM: Unlabored breathing , decreased breath sounds at bases HEART: S1 S2 regular rate and rhythm , ABDOMEN: Soft , no tenderness - Labs CBC & Chem 7: 01/30/24 11:05 01/31/24 05:42 Labs: Abnormal Lab Results - Last 24 Hours (Table) 01/31/24 Range/Units 05:42 Chloride 117 H (98-107) mmol/L Carbon Dioxide 17 L (22-30) mmol/L BUN 6 L (7-17) mg/dL Calcium 7.6 L (8.4-10.2) mg/dL Assessment and Plan (1) C. difficile colitis Current Visit: Yes Status: Acute Code(s): A04.72 - ENTEROCOLITIS D/T CLOSTRIDIUM DIFFICILE, NOT SPCF RECUR SNOMED Code(s): 843450669 (2) Leukocytosis Current Visit: Yes Status: Acute Code(s): D72.829 - ELEVATED WHITE BLOOD CELL COUNT, UNSPECIFIED SNOMED Code(s): 500899598 (3) Stage IV pressure ulcer of sacral region Current Visit: Yes Status: Acute Code(s): L89.154 - PRESSURE ULCER OF SACRAL REGION, STAGE 4 SNOMED Code(s): 70668582483962 Plan: 1patient presented to hospital with the diarrhea in this patient who did have elevated white count also noticed to have pancolitis on the CT highly suspicious for C. difficile colitis and stool for C. difficile came back positive. 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 Patient did have resolution of her diarrhea plan is to continue with oral vancomycin x 10 days on discharge Dictation was produced using [employer] dictation software. please excuse any grammatical, word or spelling errors. Time with Patient: Less than 30
--- NOTE | 2024-01-31 20:20 | P.PN ---
Subjective Progress Note Date: 01/31/24 Patient is a 78-year-old female was sent in because of multiple episodes of diarrhea and hyponatremia and dehydration. Patient is found to have C. difficile colitis. Patient was on antibiotics on multiple occasions after her hospitalization change on hospital 2 months ago. Patient was also started on antibiotics couple days ago for sinusitis. Patient does not have any significant fever patient is tachycardic patient does have history of atrial fibrillation patient is going in and out of atrial fibrillation and atrial flutter and sinus tachycardia. Patient is on Eliquis for atrial fibrillation. Patient is hyponatremic from hypovolemia. Patient will be given bolus of IV fluids followed by lactated Ringer's patient's lactate was elevated on admission which has come down at this time patient is hyperchloremic. Patient is also on midodrine for hypotension as an outpatient patient blood pressure is low here as well. 01/28/2024 Patient is evaluated in follow up today on the medical floor. C.Dif was found to be positive and patient is on oral vancomycin and IV flagyl with improvement in diarrhea. Has gone 3 times overnight and once this morning so far. There is concern as patient has a large sacral decubitus ulcer requiring wound vac which was removed prior to hospitalization and does not want the wound to be contaminated. 01/29/2024 Patient is evaluated in follow up. Resting in bed. No acute complaints today. The amount of stool and frequency has significantly improved. Remains on IV flagyl and oral cipro ID following. Pending consultation with wound care regarding wound vac to the sacral decub. Was [facility] wound center prior and had wound vac on at home. Was removed before coming to the hospital. Blood work from today not available yet. Pending reports from outside hospital. Hemodynamically she is stable. 01/30/2024 Patient is seen in follow-up today with cardiology and infectious disease following. Patient remains on antibiotics and continues to await wound care consult for sacral decubitus. Patient to continue with the and will discuss further with infectious disease regarding discharge planning if patient will require IV antibiotics versus oral. Plan is for patient to go to [facility] and currently awaiting insurance authorization. Patient is afebrile with no reports of chest pain or shortness of breath. Discussed with patient about avoiding IV narcotics will adjust pain medications. Encouraged yogurt 3 times daily with meals 01/31/2024 Patient is seen in follow-up today and continues with wound VAC and maintained on oral Vanco. Diarrhea has resolved and patient has been encouraged to continue with yogurts 3 times daily. Infectious disease following and patient will continue on 10 days course on discharge. Patient continues to await insurance authorization with plans on going to [facility]. Patient will continue with wound VAC and outpatient follow-up at the wound care center. Patient currently has indwelling Irwin catheter and will continue to assist and aid in possible increase in healing of the sacral wound. Patient is wheelchair-bound and recommend to continue with frequent position changes. Patient is afebrile with no reports of chest pain or shortness of breath. Chronic pain medication and management was discussed as patient continues to request IV Dilaudid. Discussed with patient and will discontinue Dilaudid continue with Toradol as needed and her Percocet she normally takes. Patient is maintained on oral vancomycin and will complete 10 days on discharge per ID Review of Systems Constitutional: Denied any fatigue denied any fever. Cardio vascular: denied any chest pain, palpitations Gastrointestinal: denied any nausea, vomiting, diarrhea Pulmonary: Denied any shortness of breath cough Neurologic denied any new focal deficits, reports of generalized weakness and continued pain All inpatient medications were reviewed and appropriate changes in these medications as dictated in the interval history and assessment and plan. PHYSICAL EXAMINATION: GENERAL: The patient is alert and oriented x3, not in any acute distress. Well developed, well nourished. Elderly appearing, obese HEENT: Pupils are round and equally reacting to light. EOMI. No scleral icterus. No conjunctival pallor. Normocephalic, atraumatic. No pharyngeal erythema. No thyromegaly. CARDIOVASCULAR: S1 and S2 present. No murmurs, rubs, or gallops. PULMONARY: Chest is clear to auscultation, no wheezing or crackles. ABDOMEN: Soft, nontender, nondistended, normoactive bowel sounds. No palpable organomegaly. MUSCULOSKELETAL: No joint swelling or deformity. EXTREMITIES: No cyanosis, clubbing, or pedal edema. NEUROLOGICAL: Gross neurological examination did not reveal any focal deficits. Significant generalized weakness and muscle wasting in both legs SKIN: Stage IV sacral decubitus ulcer Assessment and plan -Severe sepsis secondary to C. difficile colitis patient CT of the abdomen showed diffuse colitis probably consistent with C. difficile colitis. Patient will be on oral vancomycin. -Leukocytosis secondary to above -Sacral decubitus ulcer stage IV does not appear to be infected, case management following recommending to continue with wound care and wound VAC which has been placed.. Was requiring wound vac. [facility] wound care will be consulted for evaluation. -Atrial fibrillation with rapid ventricular rate improved with hydration. Patient remains anticoagulated with eliquis. Now rate controlled. 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 -Anxiety/Depression DVT prophylaxis: On Eliquis GI prophylaxis: Pepcid Full Code Plan: Patient is maintained on oral vancomycin with infectious disease following and reports diarrhea is improving. Continue movements oral vancomycin to 50 mg 4 times daily on discharge Continue with wound care and wound care follow-up in the outpatient setting and will continue with wound VAC Currently sinus rhythm maintained on oral Eliquis Case management following working on ECF for continued wound care and antibiotic therapy. Patient will require insurance authorization which remains pending for [facility] Possible discharge in next 24 to 48 hours The impression and plan of care has been dictated by Liliya Florez, Nurse Practitioner as directed. Dr. Booker MD I have performed a history and physical examination and medical decision making of this patient, discussed the same with the dictator, and agree with the dictators assessment and plan as written, documented as a scribe. Based on total visit time, I have performed more than 50% of this visit. Objective - Vital Signs Vital signs: Vital Signs Temp 97.6 F 01/31/24 07:12 Pulse 72 01/31/24 07:12 Resp 16 01/31/24 07:12 BP 117/71 01/31/24 07:12 Pulse Ox 92 L 01/31/24 07:12 FiO2 Intake & Output 01/30/24 01/31/24 01/31/24 18:59 06:59 18:59 Intake Total 1498 Output Total 775 650 400 Balance 723 -650 -400 Intake: Oral 1498 Output: Drainage 0 Sacrum 0 Urine 775 650 400 Other: Voiding Method Indwelling Catheter Indwelling Catheter Indwelling Catheter # Bowel Movements 1 - Labs CBC & Chem 7: 01/30/24 11:05 01/31/24 05:42 Labs: Abnormal Lab Results - Last 24 Hours (Table) 01/31/24 Range/Units 05:42 Chloride 117 H (98-107) mmol/L Carbon Dioxide 17 L (22-30) mmol/L BUN 6 L (7-17) mg/dL Calcium 7.6 L (8.4-10.2) mg/dL
[2024-01-31] MEDS: KETOROLAC 15 MG/ML 1 ML VIAL IVP PRN (20:55)
[2024-01-31] MEDS ORDERED: ZINC OXIDE PASTE (Z-GUARD) 1 APPLIC TOPICAL PRN (23:13)
[2024-02-01 11:25] LABS: Blood Urea Nitrogen 11.2 mg/dL (9.0-27.0); Calcium 7.6 mg/dL (8.7-10.3); Carbon Dioxide 20.1 mmol/L (21.6-31.8); Chloride 112 mmol/L (96-109); Glucose 81 mg/dL (70-110); Sodium 141 mmol/L (135-145)
[2024-02-01 13:37] VITALS: RESP 19; TEMP 98.4
--- NOTE | 2024-02-01 14:52 | P.DS ---
Providers Date of admission: 01/26/24 23:13 Expected date of discharge: 02/01/24 Attending physician: Juan Pablo Rosales MD Consults: 01/27/24 07:15 Consult Physician Urgent Consulting Provider: Jason Ring Consult Reason/Comments: c diff colitis Do you want consulting provider notified?: Yes 01/27/24 07:53 Consult Physician Urgent Consulting Provider: Jonel Coughlin Consult Reason/Comments: new a fib Do you want consulting provider notified?: Already Contacted Primary care physician: Physician Nonstaff Hospital Course: Final diagnosis -Severe sepsis secondary to C. difficile colitis patient CT of the abdomen showed diffuse colitis probably consistent with C. difficile colitis. Patient will be on oral vancomycin. -Leukocytosis secondary to above -Sacral decubitus ulcer stage IV does not appear to be infected, case management following recommending to continue with wound care and wound VAC which has been placed.. Was requiring wound vac. [facility] wound care will be consulted for evaluation. -Atrial fibrillation with rapid ventricular rate improved with hydration. Patient remains anticoagulated with eliquis. Now rate controlled. 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 -Anxiety/Depression DVT prophylaxis: On Eliquis GI prophylaxis: Pepcid Full Code Discharge disposition Patient is being discharged in a stable condition with guarded prognosis to [facility]. Patient will follow-up with Dr. Price in the outpatient setting upon discharge. Patient is to continue with oral Vanco for the next 10 days per ID recommendations. Patient to follow-up with the wound care center as scheduled and continue with wound VAC as scheduled. Total time taken is greater than 35 minutes. Hospital course This is a 78-year-old female who was recently admitted with sepsis secondary to C. difficile colitis being closely monitored with infectious disease following. Patient also with significant sacral decubitus stage IV ulcer that is being continued on wound care and evaluated by the wound care nurse recommending wound VAC. Wound VAC has been applied and patient will need close outpatient follow- up with the wound care center next week as scheduled. Diarrhea has improved and patient will continue on 10 days of vancomycin per ID recommendations. Patient also to continue with Questran as needed for more formed stools and may use antinausea medications as needed. Patient with significant weakness and extensive wound care recommending rehab. Under Medicare peer to peer was requested and denied reporting she can have home care in the outpatient setting. Patient apparently has Medicaid and has been accepted at [facility]. Patient will be discharged today. Please refer to other consultation notes for further HPI. Recommend repeat CBC, CMP, magnesium in 2 to 3 days. Currently no reports of chest pain, shortness of breath, or palpitations. Patient is afebrile. No reports of nausea or vomiting and patient is tolerating diet. Patient will be going to [facility] on the [facility] today. Guarded prognosis and high risk for readmissions given significant comorbidities. Patient is chronic pain as well and needs to follow-up with pain management outpatient. Physical exam: Gen: This is a 78-year-old female who is awake, alert and oriented x 3, well- developed, well-nourished, obese HEENT: Head is atraumatic, normocephalic. Pupils equal, round. Sclerae is anicteric. NECK: Supple. No JVD. No lymphadenopathy. No thyromegaly. LUNGS: Diminished breath sounds bilaterally otherwise clear to auscultation. No wheezes or rhonchi. No intercostal retractions. HEART: S1, S2 are muffled, irregular ABDOMEN: Soft. Bowel sounds are present. No masses. No tenderness. EXTREMITIES: No pedal edema. No calf tenderness. NEUROLOGICAL: Patient is awake, alert and oriented x3. Cranial nerves 2 through 12 are grossly intact. Diffusely weak Please refer to medication reconciliation sheet for a list of medications. The impression and plan of care has been dictated by Liliya Florez, Nurse Practitioner as directed. Dr. Booker MD I have performed a history and examination and MDM of this patient, discussed the same with the dictator, and agree with the dictator's assessment and plan as written ,documented as a scribe. Based on total visit time, I have performed more than 50% of the visit. Patient Condition at Discharge: Stable Plan - Discharge Summary Discharge Rx Participant: No New Discharge Prescriptions: New Vancomycin HCl [Vancocin HCl] 250 mg PO QID 10 Days #40 cap Famotidine [Pepcid] 20 mg PO HS tab Cholestyramine (with Sugar) [Questran Packet] 4 gm PO BID@1000,1800 PRN packet PRN Reason: Diarrhea Continue Midodrine HCl [ProAmatine] 10 mg PO BID Ferrous Sulfate [Iron] 325 mg PO TID Apixaban [Eliquis] 5 mg PO BID Alendronate Sodium [Fosamax] 70 mg PO CARLSON busPIRone HCl [Buspar] 5 mg PO Q8H FLUoxetine HCL [PROzac] 40 mg PO DAILY L.acidoph,Paracasei, B.lactis [Probiotic] 1 cap PO HS@2200 Omeprazole [PriLOSEC] 20 mg PO DAILY Loratadine [Claritin] 10 mg PO DAILY oxyCODONE-APAP 10-325MG [Percocet 10-325 mg] 1 tab PO Q4H PRN #4 tab PRN Reason: Pain Loperamide [Imodium] 2 mg PO QID PRN PRN Reason: Diarrhea Psyllium Husk 100% [Metamucil Packet] 1 packet PO DAILY PRN PRN Reason: Constipation Multivitamins, Thera [Multivitamin (formulary)] 1 tab PO DAILY Mirtazapine [Remeron] 30 mg PO HS@2100 Midodrine HCl [ProAmatine] 10 mg PO DAILY PRN PRN Reason: Blood Pressure - Low Discontinued methylPREDNISolone Dose Pack [Medrol Dose Pack] See Taper PO DIRECTED Sodium Chloride Tab 1 gm PO Q8H Furosemide [Lasix] 20 mg PO DAILY Discharge Medication List Alendronate Sodium [Fosamax] 70 mg PO CARLSON 01/26/24 [History] Apixaban [Eliquis] 5 mg PO BID 01/26/24 [History] FLUoxetine HCL [PROzac] 40 mg PO DAILY 01/26/24 [History] Ferrous Sulfate [Iron] 325 mg PO TID 01/26/24 [History] L.acidoph,Paracasei, B.lactis [Probiotic] 1 cap PO HS@2200 01/26/24 [History] Loperamide [Imodium] 2 mg PO QID PRN 01/26/24 [History] Loratadine [Claritin] 10 mg PO DAILY 01/26/24 [History] Midodrine HCl [ProAmatine] 10 mg PO BID 01/26/24 [History] Midodrine HCl [ProAmatine] 10 mg PO DAILY PRN 01/26/24 [History] Mirtazapine [Remeron] 30 mg PO HS@2100 01/26/24 [History] Multivitamins, Thera [Multivitamin (formulary)] 1 tab PO DAILY 01/26/24 [History] Omeprazole [PriLOSEC] 20 mg PO DAILY 01/26/24 [History] Psyllium Husk 100% [Metamucil Packet] 1 packet PO DAILY PRN 01/26/24 [History] busPIRone HCl [Buspar] 5 mg PO Q8H 01/26/24 [History] Cholestyramine (with Sugar) [Questran Packet] 4 gm PO BID@1000,1800 PRN packet 02/01/24 [Rx] Famotidine [Pepcid] 20 mg PO HS tab 02/01/24 [Rx] Vancomycin HCl [Vancocin HCl] 250 mg PO QID 10 Days #40 cap 02/01/24 [Rx] oxyCODONE-APAP 10-325MG [Percocet 10-325 mg] 1 tab PO Q4H PRN #4 tab 02/01/24 [Rx] Follow up Appointment(s)/Referral(s): Will Price MD [STAFF PHYSICIAN] - 1-2 days [facility] on the [place], [NON-STAFF] - As Needed Activity/Diet/Wound Care/Special Instructions: Patient is going to [facility] Activity as tolerated Continue taking Vanco orally 250 mg 4 times daily for the next 10 days per ID recommendations Continue with wound VAC Follow-up with the wound care center on February 06 at 2:45 PM as scheduled Continue with local wound care by Adaptic over the exposed bone and continuing with wound VAC and changes are on Sunday//Sunday by applying negative pressure to the wound VAC sacral region Patient is using 125 to150 mmHg with medium black granular foam for settings Follow-up primary care provider on discharge Continue regular diet Continue with Glucerna supplements twice daily with meals as well as Trung twice daily with meals fruit punch flavor Discharge Disposition: TRANSFER TO SNF/F
[2024-02-01 17:33] VITALS: BP 119/78; PULSE 85
--- NOTE | 2024-02-01 19:42 | P.PN ---
Subjective Progress Note Date: 02/01/24 Principal diagnosis: Reason for follow-up visit of colitis and a sacral pressure ulcer Patient is a 78-year-old female with a past medical history significant for bladder and colon cancer spine injury in this patient who is paralyzed lower extremity since August 2023 and has been in the bedbound state has also developed a sacral pressure ulcer, patient been brought to the hospital concerning for diarrhea and the patient did have a nonspecific diffuse colitis on the CT stool for significantly positive. On today's evaluation that is 02/01/2024, patient has been afebrile, patient is breathing comfortably and is currently on room air, patient denies having any significant cough no chest pain shortness of breath, patient denies nausea vomiting or diarrhea and no abdominal pain, patient diarrhea has slowed down. Patient creatinine 0.7 no CBC was done today blood in stool culture has been negative Objective - Vital Signs Vital signs: Vital Signs Temp 98.1 F 02/01/24 08:00 Pulse 73 02/01/24 08:00 Resp 16 02/01/24 08:00 BP 116/69 02/01/24 08:00 Pulse Ox 94 L 02/01/24 08:00 FiO2 Intake & Output 01/31/24 02/01/24 02/01/24 18:59 06:59 18:59 Output Total 400 1800 Balance -400 -1800 Weight 84.5 kg 88.5 kg Output: Drainage 0 Sacrum 0 Urine 400 1800 Other: Voiding Method Indwelling Catheter Indwelling Catheter Indwelling Catheter # Voids 1 # Bowel Movements 1 1 - Exam GENERAL DESCRIPTION: An elderly female lying in bed in no distress RESPIRATORY SYSTEM: Unlabored breathing , decreased breath sounds at bases HEART: S1 S2 regular rate and rhythm , ABDOMEN: Soft , no tenderness - Labs CBC & Chem 7: 01/30/24 11:05 02/01/24 07:13 Labs: Abnormal Lab Results - Last 24 Hours (Table) 02/01/24 Range/Units 07:13 Chloride 112 H (96-109) mmol/L Carbon Dioxide 20.1 L (21.6-31.8) mmol/L Calcium 7.6 L (8.7-10.3) mg/dL Microbiology - Last 24 Hours (Table) 01/26/24 19:42 Blood Culture - Final Blood 01/26/24 19:42 Blood Culture - Final Blood Assessment and Plan (1) C. difficile colitis Current Visit: Yes Status: Acute Code(s): A04.72 - ENTEROCOLITIS D/T CLOSTRIDIUM DIFFICILE, NOT SPCF RECUR SNOMED Code(s): 745742101 (2) Leukocytosis Current Visit: Yes Status: Acute Code(s): D72.829 - ELEVATED WHITE BLOOD CELL COUNT, UNSPECIFIED SNOMED Code(s): 188206484 (3) Stage IV pressure ulcer of sacral region Current Visit: Yes Status: Acute Code(s): L89.154 - PRESSURE ULCER OF SACRAL REGION, STAGE 4 SNOMED Code(s): 34913785597504 Plan: 1patient presented to hospital with the diarrhea in this patient who did have elevated white count also noticed to have pancolitis on the CT highly suspicious for C. difficile colitis and stool for C. difficile came back positive. 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 Patient did have resolution of her diarrhea , Patient to continue with oral vancomycin has been encouraged to increase her probiotic and yogurt intake Dictation was produced using [employer] dictation software. please excuse any grammatical, word or spelling errors. Time with Patient: Less than 30
== END 2024-02-01 20:18 | DRG 871 ==
LOC: EC 17:24 → 3SCARD 23:13 → 4SSUR 01-30 22:00
PROVIDERS: ADMIT Internal Medicine; ATTEND Internal Medicine
DX: A41.4 Sepsis due to anaerobes (principal); L89.154 Pressure ulcer of sacral region, stage 4; A04.72 Enterocolitis due to Clostridium difficile, not specified as recurrent; E87.1 Hypo-osmolality and hyponatremia; G82.22 Paraplegia, incomplete; I47.19 Other supraventricular tachycardia; I48.92 Unspecified atrial flutter; M46.28 Osteomyelitis of vertebra, sacral and sacrococcygeal region; Z74.01 Bed confinement status; I95.89 Other hypotension; E86.0 Dehydration; E86.1 Hypovolemia; R65.20 Severe sepsis without septic shock; E87.8 Other disorders of electrolyte and fluid balance, not elsewhere classified; F32.A Depression, unspecified; T14.90XS Injury, unspecified, sequela; Y33.XXXS Other specified events, undetermined intent, sequela; F41.9 Anxiety disorder, unspecified; G89.29 Other chronic pain; I10 Essential (primary) hypertension; I48.91 Unspecified atrial fibrillation; Z79.01 Long term (current) use of anticoagulants; K21.9 Gastro-esophageal reflux disease without esophagitis; Z79.83 Long term (current) use of bisphosphonates; Z79.899 Other long term (current) drug therapy; Z85.038 Personal history of other malignant neoplasm of large intestine; Z98.84 Bariatric surgery status; Z99.3 Dependence on wheelchair; Z85.51 Personal history of malignant neoplasm of bladder; Z71.3 Dietary counseling and surveillance
CPT/HCPCS: 36415; 74177; 80048; 80053; 80061; 81001; 82272; 83605; 83690; 83735; 85025; 85027; 85610; 85730; 87040; 87045; 87046; 87324; 93306; 96361; 96365; 96367; 96368; 96375; 96376; 99291

== ENCOUNTER → 2024-04-11 | Outpatient (CLI) | payer MEDICARE ==
--- NOTE | 2024-05-02 14:08 | CT ---
Patient: Elva Grier Ordering Physician: Unknown, Unknown ID: [id number] Phone, Pager: Phone: N/A Pager: N/A : 1945 Age/Gender: 78Y, F Primary Location: N/A Procedure: CT abdomen wo con Stud y Date: 04/11/2024 12:39:00 PM EXAMINATION TYPE: CT abdomen wo con CT DLP: 365 mGycm, Automated exposure control for dose reduction was used. DATE OF EXAM: 04/19/2024 11:05 AM COMPARISON: 01/26/2024. CLINICAL INDICATION: Bacterial infection TECHNIQUE: Axial CT abdomen wo con;Sagittal and coronal reformats were created on a separate worksta tion. Contrast used: mL of , (none if empty) Oral contrast used: (none if empty) FINDINGS: LOWER CHEST: Interstitial lung disease changes with streaky atelectasis/consolidation the right lung base. Pleural consultations also noted in the right lung base. Previously groundglass changes are see n in this region. ABDOMEN LIVER: Unremarkable GALLBLADDER AND BILE DUCTS: The gallbladder surgically absent. PANCREAS: Unremarkable. SPLEEN: Unremarkable. ADRENAL GLANDS: Unremarkable. KIDNEYS AND URETERS: No evidence of hydronephrosis or renal calculus. The ureters are unremarkable. STOMACH AND BOWEL: Small hiatal hernia with posterior thecal changes to the stomach. No evidence of b owel obstruction. Moderate amount stool in the colon. Postsurgical changes to the sigmoid colon and o ther areas of bowel in the upper abdomen no evidence for obstruction. PERITONEUM/RETROPERITONEUM: No evidence of pneumoperitoneum or free fluid. VASCULATURE: No evidence of aortic aneurysm. MUSCULOSKELETAL: No acute osseous abnormalities LYMPH NODES: No gross evidence for lymphadenopathy. SOFT TISSUE/ABDOMINAL WALL: Surgical changes along the anterior abdominal wall. IMPRESSION: 1. No organizing fluid collection or evidence for acute intra-abdominal infectious process. 2. Airspace opacities in the right lung base possibly atelectasis findings more consolidative compar ed to prior were left to be an atypical pneumonia. 3. Pleural calcifications in the right lower lobe possibly secondary to chronic infection versus asb estos exposure. 4. Postsurgical changes to the abdomen with moderate amount of stool in the colon. 5. Small hiatal hernia with post surgical changes of stomach.
== END | disposition home or self-care (01) ==
LOC: RADCTMAIN 13:00
PROVIDERS: ATTEND Family Medicine
DX: A04.72 Enterocolitis due to Clostridium difficile, not specified as recurrent (principal); K44.9 Diaphragmatic hernia without obstruction or gangrene; R91.8 Other nonspecific abnormal finding of lung field; Z48.815 Encounter for surgical aftercare following surgery on the digestive system
CPT/HCPCS: 74150

== ENCOUNTER 2024-05-21 10:25 | Inpatient (IN) | payer MEDICARE, OTHER ==
[2024-05-16 11:58] VITALS: BMI 25.6
[~2024-05-21 10:25] MED LIST: HYDROmorphone 0.5 MG/0.5 ML SYRINGE IVP PRN
[2024-05-21] MEDS: LACTATED RINGERS 1,000 ML IV SCH ×2 (11:43→16:44)
[2024-05-21] MEDS: ONDANSETRON 4 MG/2 ML VIAL IVP ONE (11:43)
[2024-05-21] MEDS: IV FLUID CONTINUATION 1,000 ML IV ONE (11:53)
[2024-05-21 12:38] LABS: Anisocytosis Slight; Basophils # (A) 0.1 k/uL (0-0.2); Basophils % (A) 1 %; Eosinophils # (A) 0.1 k/uL (0-0.7); Eosinophils % (A) 1 %; HCT 29.2 % (34.0-46.0); HGB 9.3 gm/dL (11.4-16.0); Hypochromasia Slight; Lymphocytes # (A) 1.3 k/uL (1.0-4.8); Lymphocytes % (A) 20 %; MCH 32.1 pg (25.0-35.0); MCV 100.1 fL (80.0-100.0); Macrocytosis Slight; Mean Platelet Volume 7.6; Monocytes # (A) 0.2 k/uL (0-1.0); Monocytes % (A) 4 %; Neutrophils # (A) 4.7 k/uL (1.3-7.7); Neutrophils % (A) 73 %; Platelet Count 617 k/uL (150-450); Poikilocytosis Slight; RBC 2.91 m/uL (3.80-5.40); RDW 16.1 % (11.5-15.5); WBC 6.4 k/uL (3.8-10.6)
[2024-05-21] MEDS: MIDAZOLAM 2 MG/2 ML VIAL IVP ONE (12:45)
[2024-05-21] MEDS: MIDAZOLAM 2 MG/2 ML VIAL IM ONE (12:46)
[2024-05-21 12:51] LABS: ALT 20 U/L (4-34); AST 29 U/L (14-36); African American GFR (CKD) >90 (>60 ml/min/1.73 sqM); Albumin 2.3 g/dL (3.5-5.0); Alkaline Phosphatase 151 U/L (38-126); Anion Gap 2 mmol/L; Blood Urea Nitrogen 24 mg/dL (7-17); Calcium 7.5 mg/dL (8.4-10.2); Carbon Dioxide 25 mmol/L (22-30); Chloride 111 mmol/L (98-107); Glucose 75 mg/dL (74-99); Non-African American GFR(CKD) >90 (>60 ml/min/1.73 sqM); Potassium 3.4 mmol/L (3.5-5.1); Sodium 138 mmol/L (137-145); Total Bilirubin 0.5 mg/dL (0.2-1.3); Total Protein 5.4 g/dL (6.3-8.2)
[2024-05-21] MEDS ORDERED: fentaNYL (PF) 50 MCG/ML 2 ML AMP ONE (13:42)
[2024-05-21] MEDS ORDERED: LIDOCAINE 1% INJ 10MG/ML (20 ML MDV) ONE (13:42)
[2024-05-21] MEDS ORDERED: NEOSTIGMINE 1 MG/ML 10 ML VIAL ONE (13:42)
[2024-05-21] MEDS ORDERED: GLYCOPYRROLATE 0.2 MG/ML 2 ML VIAL ONE (13:42)
[2024-05-21] MEDS ORDERED: ROCURONIUM 10 MG/ML (5 ML VIAL) IV ONE (13:42)
[2024-05-21] MEDS ORDERED: PROPOFOL 10 MG/ML 20 ML VIAL IV ONE (13:42)
[2024-05-21] MEDS: metroNIDAZOLE-NS PMX 500 MG in SALINE 1 100ML.BAG IVPB PRN (13:47)
[2024-05-21] MEDS ORDERED: NALOXONE 0.4 MG/ML 1 ML VIAL IV PRN (14:49)
--- NOTE | 2024-05-21 14:49 | P.OP ---
Date of Procedure: 05/21/24 Preoperative Diagnosis: Stage IV decubitus ulcer Postoperative Diagnosis: Same Procedure(s) Performed: Diverting left colostomy Anesthesia: ELEUTERIO Surgeon: Arjun Perea Estimated Blood Loss (ml): 10 Pathology: other (Colon) Condition: stable Disposition: PACU Description of Procedure: The patient was placed on the operative table in the supine position. She received general trach tube anesthesia. Her abdomen was prepped and draped in usual sterile fashion. Patient had previous midline laparotomy scar. The skin was incised along the scar. Electrocautery the subcutaneous fat was divided. The fascia was divided midline. There were several sheyla encountered in the fascia. There was some adhesions to the intra-abdominal wall. These were lysed with sharp dissection. The left colon was visualized. And then the colon was mobilized. The colon was then transected with a ARNOLD stapler. And then in a suitable opening in the left abdominal wall was made for the colostomy. The fascia is closed looped #1 PDS suture. Skin was low sheyla. The colostomy then matured with 3-0 Vicryl suture. The redundant colon was excised and sent to pathology prior to colostomy creation. Patient Toller procedure well. He was sent to recovery in stable condition.
[2024-05-21] MEDS: LACTATED RINGERS 1,000 ML IV ONE (14:51)
[2024-05-21] MEDS: HYDROmorphone 1 MG/ML 1 ML SYRINGE IVP PRN (16:42)
[2024-05-21] MEDS: DEXAMETHASONE SOD PHOSPHATE 4 MG/ML 1 ML VIAL IV ONE (16:44)
[2024-05-21] MEDS: HEPARIN SODIUM,PORCINE 5,000 UNIT/ML 1 ML VIAL SQ STA (16:44)
[2024-05-21] MEDS: MIRTAZAPINE 15 MG TAB PO SCH (20:36)
[2024-05-21] MEDS: LACTOBACILLUS ACIDOPHILUS/PECT 1 EACH CAPSULE PO SCH (20:36)
[2024-05-21] MEDS: busPIRone HCl 5 MG TAB PO SCH (20:36)
[2024-05-22] MEDS: FERROUS SULFATE 325 MG TAB PO SCH (06:47)
[2024-05-22] MEDS: MIDODRINE 5 MG TAB PO SCH (06:47)
[2024-05-22] MEDS: ENOXAPARIN 40 MG/0.4 ML SYRINGE SQ SCH (08:59)
[2024-05-22] MEDS: oxyCODONE-APAP 10-325MG 1 EACH TAB PO PRN (09:00)
[2024-05-22] MEDS: FLUoxetine HCL 20 MG CAP PO SCH (09:00)
[2024-05-22] MEDS: LORATADINE 10 MG TAB PO SCH (09:00)
[2024-05-22] MEDS: MULTIVITAMINS, THERA 1 EACH TAB PO SCH (09:00)
[2024-05-22] MEDS ORDERED: Potassium Replacement Protocol 1 EACH MISC MISCELLANE PRN (09:56)
[2024-05-22] MEDS: POTASSIUM CHLORIDE ER 20 MEQ TAB.ER PO SCH (10:10)
--- NOTE | 2024-05-22 10:54 | P.PN ---
Subjective Progress Note Date: 05/22/24 CHIEF COMPLAINT: Decubitus ulcer HISTORY OF PRESENT ILLNESS: Patient is postop day #1 status post diverting colostomy. She reports her pain is controlled. Denies any nausea or vomiting. No output from ostomy. Afebrile. BP 95/68 does take midodrine at home. Afebrile. No new labs. PHYSICAL EXAM: VITAL SIGNS: Reviewed. GENERAL: no acute distress. ABDOMEN: Soft. Nondistended. Incision site minimal serosanguineous drainage. Ostomy on the left stoma pink. Liquid serosanguineous output noted. NEUROLOGIC: Alert and oriented. ASSESSMENT: 1. Stage IV decubitus ulcer status post diverting colostomy PLAN: -Change incisional dressing and apply ABD -Continue pain management -Consult placed for ostomy education Physician Diesel Engine Inspector note has been reviewed by physician. Signing provider agrees with the documented findings, assessment, and plan of care. Objective - Vital Signs Vital signs: Vital Signs Temp 97.7 F 05/22/24 06:58 Pulse 71 05/22/24 06:58 Resp 18 05/22/24 06:58 BP 95/68 05/22/24 09:01 Pulse Ox 92 L 05/22/24 06:58 FiO2 Intake & Output 05/21/24 05/22/24 05/22/24 18:59 06:59 18:59 Intake Total 1550 Output Total 735 425 Balance 815 -425 Weight 71.67 kg Intake: IV 1550 Output: Urine 725 425 Estimated Blood Loss 10 Other: Voiding Method Indwelling Catheter - Labs CBC & Chem 7: 05/21/24 12:20 05/21/24 12:20 Labs: Abnormal Lab Results - Last 24 Hours (Table) 05/21/24 05/21/24 Range/Units 12:20 12:20 RBC 2.91 L (3.80-5.40) m/uL Hgb 9.3 L (11.4-16.0) gm/dL Hct 29.2 L (34.0-46.0) % MCV 100.1 H (80.0-100.0) fL RDW 16.1 H (11.5-15.5) % Plt Count 617 H (150-450) k/uL Potassium 3.4 L (3.5-5.1) mmol/L Chloride 111 H (98-107) mmol/L BUN 24 H (7-17) mg/dL Creatinine 0.51 L (0.52-1.04) mg/dL Calcium 7.5 L (8.4-10.2) mg/dL Alkaline Phosphatase 151 H (38-126) U/L Total Protein 5.4 L (6.3-8.2) g/dL Albumin 2.3 L (3.5-5.0) g/dL
[2024-05-23] MEDS ORDERED: HYDROmorphone 1 MG/ML 1 ML SYRINGE ONE (04:00)
[2024-05-23] MEDS ORDERED: busPIRone HCl 5 MG TAB ONE (04:00)
--- NOTE | 2024-05-23 09:31 | P.CONS ---
History of Present Illness - Reason for Consult Consult date: 05/22/24 Medical management, status post left diverting colostomy - History of Present Illness This is a 78-year-old female who was admitted under general surgery services status post diverting colostomy as patient had a stage IV decubitus ulcer, postop day 1. Patient has a significant past medical history of stage IV decubitus ulcer, atrial fibrillation, previous colon cancer with spinal surgeries status post chiropractor appointment and patient reports was paralyzed after this in August 2023. Patient also has history of anxiety and depression and is a former smoker. Patient has a mid abdominal incision site and dressing is dry and intact there is no AISHA, patient also noted to have a left side colostomy with no bowel activity as of yet. Patient reports she has a chronic indwelling Iriwn catheter. REVIEW OF SYSTEMS: CONSTITUTIONAL: No fever, no malaise, no fatigue. HEENT: No recent visual problems or hearing problems. Denied any sore throat. CARDIOVASCULAR: No chest pain, orthopnea, PND, no palpitations, no syncope. PULMONARY: No shortness of breath, no cough, no hemoptysis. GASTROINTESTINAL: No diarrhea, no nausea, no vomiting, no abdominal pain. NEUROLOGICAL: No headaches, no weakness, no numbness. HEMATOLOGICAL: Denies any bleeding or petechiae. GENITOURINARY: Denies any burning micturition, frequency, or urgency. MUSCULOSKELETAL/RHEUMATOLOGICAL: Denies any joint pain, swelling, or any muscle pain. ENDOCRINE: Denies any polyuria or polydipsia. The rest of the 14-point review of systems is negative. PHYSICAL EXAMINATION: GENERAL: The patient is alert and oriented x3, not in any acute distress. Well developed, well nourished. Elderly appearing HEENT: Pupils are round and equally reacting to light. EOMI. No scleral icterus. No conjunctival pallor. Normocephalic, atraumatic. No pharyngeal erythema. No thyromegaly. CARDIOVASCULAR: S1 and S2 present. No murmurs, rubs, or gallops. PULMONARY: Chest is clear to auscultation, no wheezing or crackles. ABDOMEN: Soft, mildly tender, nondistended, hypo-oactive bowel sounds. No palpable organomegaly. Midline surgical incision with sheyla and dressing that is dry and intact, left diverting colostomy noted and stoma is beefy red and no output in the ostomy at this time MUSCULOSKELETAL: No joint swelling or deformity. EXTREMITIES: No cyanosis, clubbing, or pedal edema. NEUROLOGICAL: Gross neurological examination did not reveal any focal deficits. Diffusely weak SKIN: No rashes. Assessment: Stage IV decubitus ulcer, status post diverting colostomy History of atrial fibrillation History of recurrent C. 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 Patient has been following at the wound care center with a wound VAC and also following with plastics outpatient and is undergoing diverting colostomy with plans of reversal possibly once ulcer has healed. Patient chronically takes midodrine as she reports she is always hypotensive since her injury in August 2023. Monitor for postop hypotension and follow-up on repeat labs as potassium was mildly low at 3.4 We will continue to follow with general surgery during hospitalization. Thank you kindly for this consultation. Patient reports she follows with Dr. Price in the outpatient setting. The impression and plan of care has been dictated by Liliya Florez, Nurse Practitioner as directed. Dr. Booker MD I have performed a history and examination and MDM of this patient, discussed the same with the dictator, and agree with the dictator's assessment and plan as written ,documented as a scribe. Based on total visit time, I have performed more than 50% of the visit. Past Medical History Past Medical History: Atrial Fibrillation, Cancer Additional Past Medical History / Comment(s): stage 4 pressure sore-being seen in wound center @ [facility] and using wound vac at [facility],wound sepsis Sep 2023,began w/ afib sep 2023-no longer needing to follow w/ coder operator,had hospitalization [facility] January 2024 for c diff,hypotension, bladder and colon cancer-yrs ago, spinal injury post chiropractor appointment in August 2023 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 History of Any Multi-Drug Resistant Organisms: C-DIFF Year Discovered:: 01-26-24 MDRO Source:: stool Past Surgical History: Section, Cholecystectomy Additional Past Surgical History / Comment(s): x2 bariatric surgeries, hernia repair, lymph node removal. Past Anesthesia/Blood Transfusion Reactions: No Reported Reaction Additional Past Anesthesia/Blood Transfusion Reaction / Comm: no known hx blood transfusion Past Psychological History: Anxiety, Depression Smoking Status: Former smoker Past Alcohol Use History: None Reported Past Drug Use History: None Reported - Past Family History Mother Family Medical History: Diabetes Mellitus Father Family Medical History: CVA/TIA Medications and Allergies Home Medications Medication Instructions Recorded Confirmed Type Alendronate Sodium [Fosamax] 70 mg PO CARLSON 01/26/24 05/21/24 History Apixaban [Eliquis] 5 mg PO BID 01/26/24 05/21/24 History FLUoxetine HCL [PROzac] 40 mg PO DAILY 01/26/24 05/21/24 History Ferrous Sulfate [Iron] 325 mg PO TID 01/26/24 05/21/24 History L.acidoph,Paracasei, B.lactis 1 cap PO HS@2200 01/26/24 05/21/24 History [Probiotic] Loratadine [Claritin] 10 mg PO DAILY 01/26/24 05/21/24 History Midodrine HCl [ProAmatine] 10 mg PO BID 01/26/24 05/21/24 History Midodrine HCl [ProAmatine] 10 mg PO DAILY PRN 01/26/24 05/21/24 History Mirtazapine [Remeron] 30 mg PO HS@2100 01/26/24 05/21/24 History Multivitamins, Thera [Multivitamin 1 tab PO DAILY 01/26/24 05/21/24 History (formulary)] busPIRone HCl [Buspar] 5 mg PO Q8H 01/26/24 05/21/24 History Cholestyramine (with Sugar) 4 gm PO BID@1000,1800 PRN packet 02/01/24 05/21/24 Rx [Questran Packet] oxyCODONE-APAP 10-325MG [Percocet 1 tab PO Q4H PRN #4 tab 02/01/24 05/21/24 Rx 10-325 mg] Famotidine [Pepcid] 40 mg PO BID 05/14/24 05/21/24 History Loperamide HCl [Imodium A-D] 2 mg PO QID PRN 05/14/24 05/21/24 History Allergies Allergy/AdvReac Type Severity Reaction Status Date / Time tuberculin, purified protein Allergy Rash/Hives Verified 05/21/24 11:02 deriva Physical Exam Vitals: Vital Signs Temp Pulse Pulse Resp BP BP Pulse Ox 05/22/24 09:01 95/68 05/22/24 06:58 97.7 F 71 18 93/61 92 L 05/22/24 06:36 73 78/53 05/22/24 02:04 98.3 F 71 18 100/65 90 L 05/21/24 20:36 20 05/21/24 19:35 97.8 F 81 20 121/80 95 05/21/24 18:28 89 136/85 91 L 05/21/24 18:13 90 143/77 91 L 05/21/24 17:42 59 L 129/81 96 05/21/24 17:27 64 128/80 96 05/21/24 17:12 63 125/76 97 05/21/24 16:57 66 130/83 97 05/21/24 16:42 74 116/79 95 05/21/24 16:29 98.3 F 62 18 130/75 97 05/21/24 16:00 62 16 106/65 94 L 05/21/24 15:45 58 L 15 110/62 94 L 05/21/24 15:34 63 16 108/64 95 05/21/24 15:19 70 16 119/62 100 05/21/24 15:04 97 F L 77 16 95/64 98 05/21/24 11:56 98.0 F 64 16 99/68 95 05/21/24 11:40 98.0 F 64 16 99/68 95 Intake and Output 05/21/24 05/22/24 05/22/24 22:59 06:59 14:59 Intake Total 400 Output Total 625 425 Balance -225 -425 Intake: IV 400 Output: Urine 625 425 Other: Voiding Method Indwelling Catheter Weight 71.67 kg Results CBC & Chem 7: 05/21/24 12:20 05/21/24 12:20 Labs: Abnormal Lab Results - Last 24 Hours (Table) 05/21/24 05/21/24 Range/Units 12:20 12:20 RBC 2.91 L (3.80-5.40) m/uL Hgb 9.3 L (11.4-16.0) gm/dL Hct 29.2 L (34.0-46.0) % MCV 100.1 H (80.0-100.0) fL RDW 16.1 H (11.5-15.5) % Plt Count 617 H (150-450) k/uL Potassium 3.4 L (3.5-5.1) mmol/L Chloride 111 H (98-107) mmol/L BUN 24 H (7-17) mg/dL Creatinine 0.51 L (0.52-1.04) mg/dL Calcium 7.5 L (8.4-10.2) mg/dL Alkaline Phosphatase 151 H (38-126) U/L Total Protein 5.4 L (6.3-8.2) g/dL Albumin 2.3 L (3.5-5.0) g/dL
[2024-05-23 11:13] LABS: African American GFR (CKD) >90 (>60 ml/min/1.73 sqM); Anion Gap -2 mmol/L; Blood Urea Nitrogen 12 mg/dL (7-17); Calcium 7.6 mg/dL (8.4-10.2); Carbon Dioxide 25 mmol/L (22-30); Chloride 110 mmol/L (98-107); Glucose 60 mg/dL (74-99); Non-African American GFR(CKD) 88 (>60 ml/min/1.73 sqM); Potassium 4.3 mmol/L (3.5-5.1); Sodium 133 mmol/L (137-145)
[2024-05-23] MEDS: MIDODRINE 5 MG TAB PO PRN (14:15)
--- NOTE | 2024-05-23 14:21 | P.PN ---
Subjective Progress Note Date: 05/23/24 CHIEF COMPLAINT: Decubitus ulcer HISTORY OF PRESENT ILLNESS: Patient is postop day #2 status post diverting colostomy. She reports her pain is controlled. Denies any nausea or vomiting. No output from ostomy. Patient has not received her ostomy teaching yet. Afebrile. PHYSICAL EXAM: VITAL SIGNS: Reviewed. GENERAL: no acute distress. ABDOMEN: Soft. Nondistended. Incision site clean dry and intact. Minimal serosanguineous drainage noted on dressing. Ostomy no output. Stoma mildly dusky. NEUROLOGIC: Alert and oriented. ASSESSMENT: 1. Stage IV decubitus ulcer status post diverting colostomy PLAN: -Patient scheduled for ostomy teaching today -Continue pain management -Continue regular diet Physician Dance Costume Designer note has been reviewed by physician. Signing provider agrees with the documented findings, assessment, and plan of care. Objective - Vital Signs Vital signs: Vital Signs Temp 98.1 F 05/23/24 07:12 Pulse 74 05/23/24 07:12 Resp 20 05/23/24 07:12 BP 101/67 05/23/24 07:12 Pulse Ox 93 L 05/23/24 07:12 FiO2 Intake & Output 05/22/24 05/23/24 05/23/24 18:59 06:59 18:59 Intake Total 120 Output Total 800 1775 Balance -680 -1775 Intake: Oral 120 Output: Urine 800 1775 Other: Voiding Method Indwelling Catheter Indwelling Catheter - Labs CBC & Chem 7: 05/21/24 12:20 05/23/24 10:27 Labs: Abnormal Lab Results - Last 24 Hours (Table) 05/23/24 Range/Units 10:27 Sodium 133 L (137-145) mmol/L Chloride 110 H (98-107) mmol/L Glucose 60 L (74-99) mg/dL Calcium 7.6 L (8.4-10.2) mg/dL
--- NOTE | 2024-05-23 16:16 | P.PN ---
Subjective Progress Note Date: 05/23/24 This is a 78-year-old female who was admitted under general surgery services status post diverting colostomy as patient had a stage IV decubitus ulcer, postop day 1. Patient has a significant past medical history of stage IV decubitus ulcer, atrial fibrillation, previous colon cancer with spinal surgerie s status post chiropractor appointment and patient reports was paralyzed after this in August 2023. Patient also has history of anxiety and depression and is a former smoker. Patient has a mid abdominal incision site and dressing is dry and intact there is no AISHA, patient also noted to have a left side colostomy with no bowel activity as of yet. Patient reports she has a chronic indwelling Irwin catheter. 05/23/2024 Patient is eval today in follow-up on the medical floor. She is postoperative diverting colostomy for a nonhealing sacral wound. An educational session today with the ostomy nurse is planned. She is passing gas from the ostomy. REVIEW OF SYSTEMS: CONSTITUTIONAL: No fever, no malaise, no fatigue. HEENT: No recent visual problems or hearing problems. Denied any sore throat. CARDIOVASCULAR: No chest pain, orthopnea, PND, no palpitations, no syncope. PULMONARY: No shortness of breath, no cough, no hemoptysis. GASTROINTESTINAL: No diarrhea, no nausea, no vomiting, no abdominal pain. NEUROLOGICAL: No headaches, no weakness, no numbness. PHYSICAL EXAMINATION: GENERAL: The patient is alert and oriented x3, not in any acute distress. Well developed, well nourished. Elderly appearing HEENT: Pupils are round and equally reacting to light. EOMI. No scleral icterus. No conjunctival pallor. Normocephalic, atraumatic. No pharyngeal erythema. No thyromegaly. CARDIOVASCULAR: S1 and S2 present. No murmurs, rubs, or gallops. PULMONARY: Chest is clear to auscultation, no wheezing or crackles. ABDOMEN: Soft, mildly tender, nondistended, hypo-oactive bowel sounds. No palpable organomegaly. Midline surgical incision with sheyla and dressing that is dry and intact, left diverting colostomy noted and stoma is beefy red and no output in the ostomy at this time MUSCULOSKELETAL: No joint swelling or deformity. EXTREMITIES: No cyanosis, clubbing, or pedal edema. NEUROLOGICAL: Gross neurological examination did not reveal any focal deficits. Diffusely weak SKIN: No rashes. Assessment: Stage IV decubitus ulcer, status post diverting colostomy History of atrial fibrillation History of recurrent C. 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 Patient has been following at the wound care center with a wound VAC and also following with plastics outpatient and is undergoing diverting colostomy with plans of reversal possibly once ulcer has healed. Patient chronically takes midodrine as she reports she is always hypotensive since her injury in August 2023. Monitor for postop hypotension and follow-up on repeat labs as potassium was mildly low at 3.4 Plan for return to [facility] on discharge. We will continue to follow with general surgery during hospitalization. Thank you kindly for this consultation. Patient reports she follows with Dr. rPice in the outpatient setting. The impression and plan of care has been dictated by Chhaya Rea Nurse Practitioner as directed. Dr. Booker MD I have performed a history and physical examination and medical decision making of this patient, discussed the same with the dictator, and agree with the dictators assessment and plan as written, documented as a scribe. Based on total visit time, I have performed more than 50% of this visit. Objective - Vital Signs Vital signs: Vital Signs Temp 97.6 F 05/23/24 14:00 Pulse 76 05/23/24 14:00 Resp 20 05/23/24 14:00 BP 108/63 05/23/24 15:49 Pulse Ox 93 L 05/23/24 14:00 FiO2 Intake & Output 05/22/24 05/23/24 05/23/24 18:59 06:59 18:59 Intake Total 120 Output Total 800 1775 800 Balance -680 -1775 -800 Intake: Oral 120 Output: Urine 800 1775 800 Other: Voiding Method Indwelling Catheter Indwelling Catheter Indwelling Catheter - Labs CBC & Chem 7: 05/21/24 12:20 05/23/24 10:27 Labs: Abnormal Lab Results - Last 24 Hours (Table) 05/23/24 Range/Units 10:27 Sodium 133 L (137-145) mmol/L Chloride 110 H (98-107) mmol/L Glucose 60 L (74-99) mg/dL Calcium 7.6 L (8.4-10.2) mg/dL Assessment and Plan Time with Patient: Less than 30
--- NOTE | 2024-05-24 09:32 | P.PN ---
Subjective Progress Note Date: 05/24/24 Patient is doing well. She is resting in bed comfortably gerd. She denies any significant abdominal pain. Colostomy is functioning. On exam vital signs are stable. Abdomen soft. Colostomy is pink. Status post diverting colostomy. Patient to continue receive supportive care. Objective - Vital Signs Vital signs: Vital Signs Temp 97.3 F L 05/24/24 07:58 Pulse 79 05/24/24 07:58 Resp 18 05/24/24 07:58 BP 99/68 05/24/24 07:58 Pulse Ox 93 L 05/24/24 07:58 FiO2 Intake & Output 05/23/24 05/24/24 05/24/24 18:59 06:59 18:59 Output Total 950 1150 Balance -950 -1150 Output: Urine 950 1150 Other: Voiding Method Indwelling Catheter Indwelling Catheter # Bowel Movements 1 2 - Labs CBC & Chem 7: 05/21/24 12:20 05/23/24 10:27 Labs: Abnormal Lab Results - Last 24 Hours (Table) 05/23/24 Range/Units 10:27 Sodium 133 L (137-145) mmol/L Chloride 110 H (98-107) mmol/L Glucose 60 L (74-99) mg/dL Calcium 7.6 L (8.4-10.2) mg/dL
[2024-05-24 11:14] LABS: Blood Urea Nitrogen 11.9 mg/dL (9.0-27.0); Calcium 7.6 mg/dL (8.7-10.3); Carbon Dioxide 23.9 mmol/L (21.6-31.8); Chloride 105 mmol/L (96-109); Glucose 81 mg/dL (70-110); Potassium 4.5 mmol/L (3.5-5.5); Sodium 138 mmol/L (135-145)
--- NOTE | 2024-05-24 15:55 | P.PN ---
Subjective Progress Note Date: 05/24/24 This is a 78-year-old female who was admitted under general surgery services status post diverting colostomy as patient had a stage IV decubitus ulcer, postop day 1. Patient has a significant past medical history of stage IV decubitus ulcer, atrial fibrillation, previous colon cancer with spinal surgerie s status post chiropractor appointment and patient reports was paralyzed after this in August 2023. Patient also has history of anxiety and depression and is a former smoker. Patient has a mid abdominal incision site and dressing is dry and intact there is no AISHA, patient also noted to have a left side colostomy with no bowel activity as of yet. Patient reports she has a chronic indwelling Irwin catheter. 05/23/2024 Patient is eval today in follow-up on the medical floor. She is postoperative diverting colostomy for a nonhealing sacral wound. An educational session today with the ostomy nurse is planned. She is passing gas from the ostomy. 05/24/2024 Patient is evaluated in follow-up in the medical floor. She is postoperative diverting colostomy for a nonhealing sacral wound. Patient was having difficulty with cutting the ostomy to size secondary to weakness in her right hand that she has been undergoing physical therapy for. Plans for a follow-up educational session with her daughter present on Sunday. Likely patient will discharge back to [facility] on Sunday. REVIEW OF SYSTEMS: CONSTITUTIONAL: No fever, no malaise, no fatigue. HEENT: No recent visual problems or hearing problems. Denied any sore throat. CARDIOVASCULAR: No chest pain, orthopnea, PND, no palpitations, no syncope. PULMONARY: No shortness of breath, no cough, no hemoptysis. GASTROINTESTINAL: No diarrhea, no nausea, no vomiting, no abdominal pain. NEUROLOGICAL: No headaches, no weakness, no numbness. PHYSICAL EXAMINATION: GENERAL: The patient is alert and oriented x3, not in any acute distress. Well developed, well nourished. Elderly appearing HEENT: Pupils are round and equally reacting to light. EOMI. No scleral icterus. No conjunctival pallor. Normocephalic, atraumatic. No pharyngeal erythema. No thyromegaly. CARDIOVASCULAR: S1 and S2 present. No murmurs, rubs, or gallops. PULMONARY: Chest is clear to auscultation, no wheezing or crackles. ABDOMEN: Soft, mildly tender, nondistended, hypo-oactive bowel sounds. No palpable organomegaly. Midline surgical incision with sheyla and dressing that is dry and intact, left diverting colostomy noted and stoma is beefy red and no output in the ostomy at this time MUSCULOSKELETAL: No joint swelling or deformity. EXTREMITIES: No cyanosis, clubbing, or pedal edema. NEUROLOGICAL: Gross neurological examination did not reveal any focal deficits. Diffusely weak SKIN: No rashes. Assessment: Stage IV decubitus ulcer, status post diverting colostomy History of atrial fibrillation History of recurrent C. 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 Patient has been following at the wound care center with a wound VAC and also following with plastics outpatient and is undergoing diverting colostomy with plans of reversal possibly once ulcer has healed. Patient chronically takes midodrine as she reports she is always hypotensive since her injury in August 2023. Monitor for postop hypotension and follow-up on repeat labs as potassium was mildly low at 3.4 Plan for return to [facility] on discharge. We will continue to follow with general surgery during hospitalization. Thank you kindly for this consultation. Patient reports she follows with Dr. Price in the outpatient setting. The impression and plan of care has been dictated by Chhaya Rea, Nurse Practitioner as directed. Dr. Booker MD I have performed a history and physical examination and medical decision making of this patient, discussed the same with the dictator, and agree with the dictators assessment and plan as written, documented as a scribe. Based on total visit time, I have performed more than 50% of this visit. Objective - Vital Signs Vital signs: Vital Signs Temp 98.1 F 05/24/24 14:00 Pulse 76 05/24/24 14:00 Resp 18 05/24/24 14:00 BP 105/62 05/24/24 14:00 Pulse Ox 92 L 05/24/24 14:00 FiO2 Intake & Output 05/23/24 05/24/24 05/24/24 18:59 06:59 18:59 Output Total 950 1150 Balance -950 -1150 Output: Urine 950 1150 Other: Voiding Method Indwelling Catheter Indwelling Catheter # Bowel Movements 1 2 - Labs CBC & Chem 7: 05/21/24 12:20 05/24/24 03:15 Labs: Abnormal Lab Results - Last 24 Hours (Table) 05/24/24 Range/Units 03:15 Creatinine 0.5 L (0.6-1.5) mg/dL BUN/Creatinine Ratio 23.80 H (12.00-20.00) Ratio Calcium 7.6 L (8.7-10.3) mg/dL Assessment and Plan Time with Patient: Less than 30
[2024-05-25] MEDS: PATIENT'S OWN (Alendronate Sodium [Fosamax] 70 MG Tablet) PO SCH (06:05)
--- NOTE | 2024-05-25 09:30 | P.PN ---
Subjective Progress Note Date: 05/25/24 Patient main stable. Her colostomy is functional. She has minimal abdominal pain. On exam vital signs appear stable. Abdomen soft. Status post diverting colostomy. We dissipate discharge back to [facility] tomorrow. Objective - Vital Signs Vital signs: Vital Signs Temp 98.4 F 05/25/24 07:04 Pulse 76 05/25/24 07:04 Resp 18 05/25/24 07:04 BP 101/63 05/25/24 07:04 Pulse Ox 91 L 05/25/24 07:04 FiO2 Intake & Output 05/24/24 05/25/24 05/25/24 18:59 06:59 18:59 Output Total 600 1750 Balance -600 -1750 Output: Urine 300 1750 Stool 300 Other: Voiding Method Indwelling Catheter # Bowel Movements 1 - Labs CBC & Chem 7: 05/21/24 12:20 05/24/24 03:15 Labs: Abnormal Lab Results - Last 24 Hours (Table) 05/24/24 Range/Units 03:15 Creatinine 0.5 L (0.6-1.5) mg/dL BUN/Creatinine Ratio 23.80 H (12.00-20.00) Ratio Calcium 7.6 L (8.7-10.3) mg/dL
--- NOTE | 2024-05-25 22:53 | P.PN ---
Subjective Progress Note Date: 05/25/24 This is a 78-year-old female who was admitted under general surgery services status post diverting colostomy as patient had a stage IV decubitus ulcer, postop day 1. Patient has a significant past medical history of stage IV decubitus ulcer, atrial fibrillation, previous colon cancer with spinal surgerie s status post chiropractor appointment and patient reports was paralyzed after this in August 2023. Patient also has history of anxiety and depression and is a former smoker. Patient has a mid abdominal incision site and dressing is dry and intact there is no AISHA, patient also noted to have a left side colostomy with no bowel activity as of yet. Patient reports she has a chronic indwelling Irwin catheter. 05/23/2024 Patient is eval today in follow-up on the medical floor. She is postoperative diverting colostomy for a nonhealing sacral wound. An educational session today with the ostomy nurse is planned. She is passing gas from the ostomy. 05/24/2024 Patient is evaluated in follow-up in the medical floor. She is postoperative diverting colostomy for a nonhealing sacral wound. Patient was having difficulty with cutting the ostomy to size secondary to weakness in her right hand that she has been undergoing physical therapy for. Plans for a follow-up educational session with her daughter present on Sunday. Likely patient will discharge back to [facility] on Sunday. 05/25/2024 Patient evaluated in follow up today. No acute complaints. Making stool per the ostomy. Sodium level 138 today. REVIEW OF SYSTEMS: CONSTITUTIONAL: No fever, no malaise, no fatigue. HEENT: No recent visual problems or hearing problems. Denied any sore throat. CARDIOVASCULAR: No chest pain, orthopnea, PND, no palpitations, no syncope. PULMONARY: No shortness of breath, no cough, no hemoptysis. GASTROINTESTINAL: No diarrhea, no nausea, no vomiting, no abdominal pain. NEUROLOGICAL: No headaches, no weakness, no numbness. PHYSICAL EXAMINATION: GENERAL: The patient is alert and oriented x3, not in any acute distress. Well developed, well nourished. Elderly appearing HEENT: Pupils are round and equally reacting to light. EOMI. No scleral icterus. No conjunctival pallor. Normocephalic, atraumatic. No pharyngeal erythema. No thyromegaly. CARDIOVASCULAR: S1 and S2 present. No murmurs, rubs, or gallops. PULMONARY: Chest is clear to auscultation, no wheezing or crackles. ABDOMEN: Soft, mildly tender, nondistended, hypo-oactive bowel sounds. No palpable organomegaly. Midline surgical incision with sheyla and dressing that is dry and intact, left diverting colostomy noted and stoma is beefy red and no output in the ostomy at this time MUSCULOSKELETAL: No joint swelling or deformity. EXTREMITIES: No cyanosis, clubbing, or pedal edema. NEUROLOGICAL: Gross neurological examination did not reveal any focal deficits. Diffusely weak SKIN: No rashes. Assessment: Stage IV decubitus ulcer, status post diverting colostomy History of atrial fibrillation History of recurrent C. 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 Patient has been following at the wound care center with a wound VAC and also following with plastics outpatient and is undergoing diverting colostomy with plans of reversal possibly once ulcer has healed. Patient chronically takes midodrine as she reports she is always hypotensive since her injury in August 2023. Monitor for postop hypotension and follow-up on repeat labs as potassium was mildly low at 3.4 Plan for return to [facility] on discharge. We will continue to follow with general surgery during hospitalization. Thank you kindly for this consultation. Patient reports she follows with Dr. Price in the outpatient setting. The impression and plan of care has been dictated by Chhaya Rea, Nurse Practitioner as directed. Dr. Booker MD I have performed a history and physical examination and medical decision making of this patient, discussed the same with the dictator, and agree with the dictators assessment and plan as written, documented as a scribe. Based on total visit time, I have performed more than 50% of this visit. Objective - Vital Signs Vital signs: Vital Signs Temp 98.2 F 05/25/24 19:37 Pulse 89 05/25/24 19:37 Resp 17 05/25/24 19:37 BP 98/63 05/25/24 19:37 Pulse Ox 92 L 05/25/24 19:37 FiO2 Intake & Output 05/25/24 05/25/24 05/26/24 06:59 18:59 06:59 Output Total 1750 200 Balance -1750 -200 Output: Urine 1750 200 Other: Voiding Method Indwelling Catheter # Bowel Movements 1 - Labs CBC & Chem 7: 05/21/24 12:20 05/24/24 03:15 Assessment and Plan Time with Patient: Less than 30
[2024-05-26 08:57] VITALS: RESP 18
--- NOTE | 2024-05-26 13:18 | XR ---
EXAMINATION TYPE: XR chest 2V DATE OF EXAM: 05/26/2024 1:04 PM CLINICAL INDICATION: Female, 78 years old with history of cough, SOB; COMPARISON: None TECHNIQUE: XR chest 2V Frontal view of the chest. FINDINGS: Lungs/Pleura: No evidence of focal consolidation or pneumothorax. Blunting of the costophrenic angles is present. Pulmonary vascularity: Unremarkable. Heart/mediastinum: Cardiomediastinal silhouette is prominent in size. Musculoskeletal: No acute osseous pathology. IMPRESSION: Moderate right and small left pleural effusions. Correlate with congestive heart failure. [facility], , 05/26/2024 1:15 PM
[2024-05-26] MEDS: FUROSEMIDE 10 MG/ML 2 ML VIAL IV ONE (14:44)
[2024-05-26 14:47] VITALS: BP 99/64; PULSE 86; TEMP 98.2
--- NOTE | 2024-05-26 15:44 | P.DS ---
Providers Date of admission: 05/21/24 10:33 Expected date of discharge: 05/26/24 Attending physician: Arjun Perea Consults: 05/21/24 17:35 Consult Physician Routine Consulting Provider: Barbara Estrella Consult Reason/Comments: Medical management Do you want consulting provider notified?: Yes Primary care physician: Wlil Price Hospital Course: Discharge diagnosis 1. Stage IV decubitus ulcer Hospital course This is a 78-year-old female with a history of stage IV decubitus ulcer. She is status post diverting left colostomy. Ostomy is functioning. Her pain is controlled. She is tolerating diet. She has received her ostomy teaching. Chest x-ray had shown some fluid overload medicine services ordered IV Lasix. Medicine service has cleared patient for discharge. She is afebrile. Patient is stable for discharge back to [facility]. Please refer to chart for any further details. Physician Wheelchair Rental Clerk note has been reviewed by physician. Signing provider agrees with the documented findings, assessment, and plan of care. Patient Condition at Discharge: Stable Plan - Discharge Summary Discharge Rx Participant: No New Discharge Prescriptions: Continue Midodrine HCl [ProAmatine] 10 mg PO BID Ferrous Sulfate [Iron] 325 mg PO TID Apixaban [Eliquis] 5 mg PO BID Alendronate Sodium [Fosamax] 70 mg PO CARLSON busPIRone HCl [Buspar] 5 mg PO Q8H FLUoxetine HCL [PROzac] 40 mg PO DAILY L.acidoph,Paracasei, B.lactis [Probiotic] 1 cap PO HS@2200 Loratadine [Claritin] 10 mg PO DAILY Famotidine [Pepcid] 40 mg PO BID Loperamide HCl [Imodium A-D] 2 mg PO QID PRN PRN Reason: loose stools oxyCODONE-APAP 10-325MG [Percocet 10-325 mg] 1 tab PO Q4H PRN #12 tab PRN Reason: Pain Multivitamins, Thera [Multivitamin (formulary)] 1 tab PO DAILY Mirtazapine [Remeron] 30 mg PO HS@2100 Midodrine HCl [ProAmatine] 10 mg PO DAILY PRN PRN Reason: Blood Pressure - Low Discontinued Cholestyramine (with Sugar) [Questran Packet] 4 gm PO BID@1000,1800 PRN packet PRN Reason: Diarrhea Discharge Medication List Alendronate Sodium [Fosamax] 70 mg PO CARLSON 01/26/24 [History] Apixaban [Eliquis] 5 mg PO BID 01/26/24 [History] FLUoxetine HCL [PROzac] 40 mg PO DAILY 01/26/24 [History] Ferrous Sulfate [Iron] 325 mg PO TID 01/26/24 [History] L.acidoph,Paracasei, B.lactis [Probiotic] 1 cap PO HS@2200 01/26/24 [History] Loratadine [Claritin] 10 mg PO DAILY 01/26/24 [History] Midodrine HCl [ProAmatine] 10 mg PO BID 01/26/24 [History] Midodrine HCl [ProAmatine] 10 mg PO DAILY PRN 01/26/24 [History] Mirtazapine [Remeron] 30 mg PO HS@2100 01/26/24 [History] Multivitamins, Thera [Multivitamin (formulary)] 1 tab PO DAILY 01/26/24 [History] busPIRone HCl [Buspar] 5 mg PO Q8H 01/26/24 [History] Famotidine [Pepcid] 40 mg PO BID 05/14/24 [History] Loperamide HCl [Imodium A-D] 2 mg PO QID PRN 05/14/24 [History] oxyCODONE-APAP 10-325MG [Percocet 10-325 mg] 1 tab PO Q4H PRN #12 tab 05/26/24 [Rx] Follow up Appointment(s)/Referral(s): [facility], [NON-STAFF] - As Needed Arjun Perea MD [STAFF PHYSICIAN] - 1 Week Activity/Diet/Wound Care/Special Instructions: Colostomy Care: Lorena piece cut-to-fit convex appliance #06370 Non sting skin prep as needed Change every 3 to 5 days and when leaking; empty when no more than half full Patient may benefit from a moldable flange at a later time to encourage independence Last changed: 05/26/24 Discharge Disposition: TRANSFER TO SNF/ECF
--- NOTE | 2024-06-02 06:05 | P.PN ---
Subjective Progress Note Date: 05/26/24 This is a 78-year-old female who was admitted under general surgery services status post diverting colostomy as patient had a stage IV decubitus ulcer, postop day 1. Patient has a significant past medical history of stage IV decubitus ulcer, atrial fibrillation, previous colon cancer with spinal surge eboni status post chiropractor appointment and patient reports was paralyzed after this in August 2023. Patient also has history of anxiety and depression and is a former smoker. Patient has a mid abdominal incision site and dressing is dry and intact there is no AISHA, patient also noted to have a left side colostomy with no bowel activity as of yet. Patient reports she has a chronic indwelling Irwin catheter. 05/23/2024 Patient is eval today in follow-up on the medical floor. She is postoperative diverting colostomy for a nonhealing sacral wound. An educational session today with the ostomy nurse is planned. She is passing gas from the ostomy. 05/24/2024 Patient is evaluated in follow-up in the medical floor. She is postoperative diverting colostomy for a nonhealing sacral wound. Patient was having difficulty with cutting the ostomy to size secondary to weakness in her right hand that she has been undergoing physical therapy for. Plans for a follow-up educational session with her daughter present on Sunday. Likely patient will discharge back to [facility] on Sunday. 05/25/2024 Patient evaluated in follow up today. No acute complaints. Making stool per the ostomy. Sodium level 138 today. 05/26/2024 Patient is seen and evaluated in follow-up today with no acute overnight issues noted. Patient is having stool noted in the ostomy following up on wound care and plans on going to [facility] today. Patient is afebrile with no reported chest pain or shortness of breath. Patient did have some low pulse ox readings chest x-ray was done and has been encouraged to use incentive spirometer. No reported nausea or vomiting and patient has been tolerating diet. Patient is medically stable once cleared by surgery REVIEW OF SYSTEMS: CONSTITUTIONAL: No fever, no malaise, no fatigue. HEENT: No recent visual problems or hearing problems. Denied any sore throat. CARDIOVASCULAR: No chest pain, orthopnea, PND, no palpitations, no syncope. PULMONARY: No shortness of breath, no cough, no hemoptysis. GASTROINTESTINAL: No diarrhea, no nausea, no vomiting, no abdominal pain. NEUROLOGICAL: No headaches, no weakness, no numbness. PHYSICAL EXAMINATION: GENERAL: The patient is alert and oriented x3, not in any acute distress. Well developed, well nourished. Elderly appearing HEENT: Pupils are round and equally reacting to light. EOMI. No scleral icterus. No conjunctival pallor. Normocephalic, atraumatic. No pharyngeal erythema. No thyromegaly. CARDIOVASCULAR: S1 and S2 present. No murmurs, rubs, or gallops. PULMONARY: Chest is clear to auscultation, no wheezing or crackles. ABDOMEN: Soft, mildly tender, nondistended, normal active bowel sounds. No palpable organomegaly. Midline surgical incision with sheyla and dressing that is dry and intact, left diverting colostomy noted and stoma is beefy red with gas and stool output in the ostomy MUSCULOSKELETAL: No joint swelling or deformity. EXTREMITIES: No cyanosis, clubbing, or pedal edema. NEUROLOGICAL: Gross neurological examination did not reveal any focal deficits. Diffusely weak SKIN: No rashes. Assessment: Stage IV decubitus ulcer, status post diverting colostomy History of atrial fibrillation History of recurrent C. 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 Patient has been following at the wound care center with a wound VAC and also following with plastics outpatient and is undergoing diverting colostomy with plans of reversal possibly once ulcer has healed. Patient chronically takes midodrine as she reports she is always hypotensive since her injury in August 2023. Plan for return to [facility] on discharge. Patient is medically stable once cleared by general surgery We will continue to follow with general surgery during hospitalization. Thank you kindly for this consultation. Patient reports she follows with Dr. Price in the outpatient setting. The impression and plan of care has been dictated by Liliya Florez, Nurse Practitioner as directed. Dr. Booker MD I have performed a history and physical examination and medical decision making of this patient, discussed the same with the dictator, and agree with the dictators assessment and plan as written, documented as a scribe. Based on total visit time, I have performed more than 50% of this visit. Objective - Vital Signs Vital signs: Vital Signs Temp 98.9 F 05/26/24 00:35 Pulse 97 05/26/24 08:00 Resp 18 05/26/24 08:00 BP 97/61 05/26/24 00:35 Pulse Ox 91 L 05/26/24 00:35 FiO2 Intake & Output 05/25/24 05/26/24 05/26/24 18:59 06:59 18:59 Output Total 200 1000 Balance -200 -1000 Output: Urine 200 1000 Other: Voiding Method Indwelling Catheter Indwelling Catheter - Labs CBC & Chem 7: 05/21/24 12:20 05/24/24 03:15
== END 2024-05-26 18:31 | DRG 982 ==
LOC: 2ORMAIN 10:33 → 4SSUR 16:01
PROVIDERS: ADMIT Surgery; ATTEND Surgery
PROC: 0D1E0Z4 Bypass Large Intestine to Cutaneous, Open Approach (ICD-10-PCS; principal; 2024-05-21 12:50)
DX: L89.154 Pressure ulcer of sacral region, stage 4 (principal); G82.20 Paraplegia, unspecified; I95.89 Other hypotension; F32.A Depression, unspecified; I48.91 Unspecified atrial fibrillation; E87.70 Fluid overload, unspecified; K21.9 Gastro-esophageal reflux disease without esophagitis; F41.9 Anxiety disorder, unspecified; K66.0 Peritoneal adhesions (postprocedural) (postinfection); T14.8XXS Other injury of unspecified body region, sequela; Z79.01 Long term (current) use of anticoagulants; Z79.83 Long term (current) use of bisphosphonates; Z79.899 Other long term (current) drug therapy; Z85.038 Personal history of other malignant neoplasm of large intestine; Z85.51 Personal history of malignant neoplasm of bladder; Z87.891 Personal history of nicotine dependence; Z83.3 Family history of diabetes mellitus
CPT/HCPCS: 71046; 80048; 80053; 85025; 86850; 86900; 86901; 88307

== ENCOUNTER 2024-06-05 16:37 | Emergency (ER) | payer MEDICARE ==
[2024-06-05 16:44] VITALS: RESP 18; TEMP 97.5
--- NOTE | 2024-06-05 17:41 | ED ---
Wound/Laceration HPI - General Chief Complaint: Wound/Laceration Stated Complaint: Ostomy Issues Time Seen by Provider: 06/05/24 17:40 Source: patient, RN notes reviewed Mode of arrival: EMS Limitations: no limitations, physical limitation - History of Present Illness Initial Comments: 78-year-old female presented to ER via EMS from [facility] for evaluation of abdominal wound. Patient has a known spinal cord injury and is bedbound. Patient underwent a diverting last colostomy on 05-21-[address] Perea. Patient had colostomy placed due to decubitus ulcer and need to keep it clean from fecal matter as she is scheduled for flap surgery on wound soon. Patient has been seen daily by wound care at [facility] due to stage IV decubitus ulcer and abdominal wound. Wound care nurse noticed today dehiscence of surgical wound. Patient states she was seen by Dr. Perea 2 days ago. Patient denies any fevers or chills. She denies any other complaints at this time. Denies any pain. - Related Data Home Medications Medication Instructions Recorded Confirmed Alendronate Sodium [Fosamax] 70 mg PO CARLSON 01/26/24 05/21/24 Apixaban [Eliquis] 5 mg PO BID 01/26/24 05/21/24 FLUoxetine HCL [PROzac] 40 mg PO DAILY 01/26/24 05/21/24 Ferrous Sulfate [Iron] 325 mg PO TID 01/26/24 05/21/24 L.acidoph,Paracasei, B.lactis 1 cap PO HS@2200 01/26/24 05/21/24 [Probiotic] Loratadine [Claritin] 10 mg PO DAILY 01/26/24 05/21/24 Midodrine HCl [ProAmatine] 10 mg PO BID 01/26/24 05/21/24 Midodrine HCl [ProAmatine] 10 mg PO DAILY PRN 01/26/24 05/21/24 Mirtazapine [Remeron] 30 mg PO HS@2100 01/26/24 05/21/24 Multivitamins, Thera [Multivitamin 1 tab PO DAILY 01/26/24 05/21/24 (formulary)] busPIRone HCl [Buspar] 5 mg PO Q8H 01/26/24 05/21/24 Famotidine [Pepcid] 40 mg PO BID 05/14/24 05/21/24 Loperamide HCl [Imodium A-D] 2 mg PO QID PRN 05/14/24 05/21/24 Previous Rx's Medication Instructions Recorded oxyCODONE-APAP 10-325MG [Percocet 1 tab PO Q4H PRN #12 tab 05/26/24 10-325 mg] Allergies Allergy/AdvReac Type Severity Reaction Status Date / Time tuberculin, purified protein Allergy Rash/Hives Verified 06/05/24 16:43 deriva Review of Systems ROS Statement: Those systems with pertinent positive or pertinent negative responses have been documented in the HPI. ROS Other: All systems not noted in ROS Statement are negative. 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 History of Any Multi-Drug Resistant Organisms: C-DIFF Date of last positivie culture/infection: 01-26-24 MDRO Source:: stool Past Surgical History: Section, Cholecystectomy Additional Past Surgical History / Comment(s): x2 bariatric surgeries, hernia repair, lymph node removal. Past Anesthesia/Blood Transfusion Reactions: No Reported Reaction Additional Past Anesthesia/Blood Transfusion Reaction / Comment(s): no known hx blood transfusion Past Psychological History: Anxiety, Depression Smoking Status: Former smoker Past Alcohol Use History: None Reported Past Drug Use History: None Reported - Past Family History Mother Family Medical History: Diabetes Mellitus Father Family Medical History: CVA/TIA General Exam Limitations: no limitations General appearance: alert, in no apparent distress Respiratory exam: Present: normal lung sounds bilaterally. Absent: respiratory distress, wheezes, rales, rhonchi, stridor Cardiovascular Exam: Present: regular rate, normal rhythm, normal heart sounds. Absent: systolic murmur, diastolic murmur, rubs, gallop, clicks GI/Abdominal exam: Present: soft, normal bowel sounds, other (Colostomy in place left upper quadrant. There is a midline vertical surgical incision present. Around umbilicus there is approximately 1 cm of dehiscence. Packing is in place. No surrounding erythema, purulent drainage or edema. Sheyla are in place.). Absent: distended, tenderness, guarding, rebound, rigid Neurological exam: Present: alert, oriented X3, CN II-XII intact Skin exam: Present: warm, dry, intact, normal color. Absent: rash Course Vital Signs 06/05/24 06/05/24 16:40 19:22 Temperature 97.5 F L Pulse Rate 66 92 Respiratory 18 18 Rate Blood Pressure 117/71 126/82 O2 Sat by Pulse 98 98 Oximetry - Reevaluation(s) Reevaluation #1: 06/05/24 17:[address] Perea who advises on staple removal, wet-to-dry dressing and discharge home. Medical Decision Making - Medical Decision Making Was pt. sent in by a medical professional or institution (, PA, STAPLE PROCESSING MACHINE OPERATOR, urgent care, hospital, or care home...) When possible be specific @ -Patient sent by [facility] for evaluation of abdominal wound. Did you speak to anyone other than the patient for history (EMS, parent, family, police, friend...)? What history was obtained from this source @ -No Did you review nursing and triage notes (agree or disagree)? Why? @ -I reviewed and agree with nursing and triage notes Were old charts reviewed (outside hosp., previous admission, EMS record, old EKG, old radiological studies, urgent care reports/EKG's, care home records)? Report findings @ -Yes, I reviewed surgical notes from 05-21-2024. Patient underwent a diverting left colostomy by Dr. Perea. Differential Diagnosis (chest pain, altered mental status, abdominal pain women, abdominal pain men, vaginal bleeding, weakness, fever, dyspnea, syncope, headache, dizziness, GI bleed, back pain, seizure, CVA, palpatations, mental health, musculoskeletal)? @ -Wound dehiscence, cellulitis, wound infection This list is not meant to be all-inclusive EKG interpreted by me (3pts min.). @ -None done X-rays interpreted by me (1pt min.). @ -None done CT interpreted by me (1pt min.). @ -None done U/S interpreted by me (1pt. min.). @ -None done What testing was considered but not performed or refused? (CT, X-rays, U/S, labs)? Why? @ -None What meds were considered but not given or refused? Why? @ -None Did you discuss the management of the patient with other professionals (professionals i.e. Dr., PA, STAPLE PROCESSING MACHINE OPERATOR, lab, RT, psych nurse, manager social responsibility, floor care technician, teacher, truant officer, case planner)? Give summary @ -Yes, case discussed with Dr. Perea who advised on staple removal, wet to dry dressing, and discharge. Was smoking cessation discussed for >3mins.? @ -No Was critical care preformed (if so, how long)? @ -No Were there social determinants of health that impacted care today? How? (Homelessness, low income, unemployed, alcoholism, drug addiction, transportation, low edu. Level, literacy, decrease access to med. care, nursing home, rehab)? @ -No Was there de-escalation of care discussed even if they declined (Discuss DNR or withdrawal of care, Hospice)? DNR status @ -No What co-morbidities impacted this encounter? (DM, HTN, Smoking, COPD, CAD, Cancer, CVA, ARF, Chemo, Hep., AIDS, mental health diagnosis, sleep apnea, morbid obesity)? @ -Spinal cord injury, colostomy Was patient admitted / discharged? Hospital course, mention meds given and route, prescriptions, significant lab abnormalities, going to OR and other pertinent info. @ -Discharge. 78-year-old female presented to the ER via EMS from [facility] for evaluation of abdominal wound. Patient underwent a diverting left colostomy by Dr. Perea on 05-21-2024. History and physical exam completed. Vitals within normal limits.Patient in no signs of acute distress and nontoxic-appearing. Exam remarkable for a midline surgical incision sheyla in place. There is 1 cm of dehiscence to umbilical area. Colostomy in place in left upper quadrant. No surrounding erythema, purulent drainage or evidence of infection around wound. Normal bowel sounds with no tenderness to palpation. No rebound or guarding. Case was discussed with Dr. Perea, general surgery, who advised on staple removal, wet to dry dressing and discharge. Sheyla removed. Wet-to-dry dressing placed. I advised close follow-up with Dr. Perea in 3-5 days. Strict return parameters discussed. Patient was discharged back to [facility] in stable condition transported via EMS. Patient verbally expressed understanding agreement care plan. Case discussed with ED attending, Dr. Corea. Undiagnosed new problem with uncertain prognosis? @ -No Drug Therapy requiring intensive monitoring for toxicity (Heparin, Nitro, Insulin, Cardizem)? @ -No Were any procedures done? @ -No Diagnosis/symptom? @ -Wound dehiscence/staple removal Acute, or Chronic, or Acute on Chronic? @ -Acute Uncomplicated (without systemic symptoms) or Complicated (systemic symptoms)? @ -Uncomplicated Side effects of treatment? @ -No Exacerbation, Progression, or Severe Exacerbation? @ -No Poses a threat to life or bodily function? How? (Chest pain, USA, [place], pneumonia, PE, COPD, DKA, ARF, appy, cholecystitis, CVA, Diverticulitis, Homicidal, Suicidal, threat to staff... and all critical care pts) @ -No Disposition Clinical Impression: Encounter for wound care, Removal of sheyla, Wound dehiscence Disposition: HOME SELF-CARE Condition: Stable Instructions (If sedation given, give patient instructions): Chronic Wound Care (ED) Additional Instructions: Follow-up with Dr. Perea in next 1 to 2 days. Return to the ER for any new or worsening concerns. Is patient prescribed a controlled substance at d/c from ED?: No Referrals: Will Price MD [Primary Care Provider] - 1-2 days Arjun Perea MD [STAFF PHYSICIAN] - 1-2 days Time of Disposition: 18:00
[2024-06-05 19:24] VITALS: BP 126/82; PULSE 92
== END 2024-06-05 19:23 | disposition home or self-care (01) ==
LOC: EC 16:37
CPT/HCPCS: 99283

== ENCOUNTER 2025-02-04 07:52 | Inpatient (IN) | payer MEDICARE, OTHER ==
--- NOTE | 2025-02-04 09:18 | ED ---
Abdominal Pain HPI - General Chief Complaint: Abdominal Pain Stated Complaint: Post-op comp Time Seen by Provider: 02/04/25 08:21 Source: patient, EMS, RN notes reviewed Mode of arrival: EMS Limitations: no limitations - History of Present Illness Initial Comments: 79-year-old female presents emergency department with chief complaint of abdominal issues. Patient was sent in by [facility] for evaluation of her stoma, constipation. Patient currently has an ostomy secondary to recent flap procedure and that diverting stool from recent surgical area patient states that she occasionally does not goal states that then it less loose and she does have bowel movements. Patient currently is on analgesic medications. Patient denies fevers chills no chest pain shortness of breath. - Related Data Home Medications Medication Instructions Recorded Confirmed Alendronate Sodium [Fosamax] 70 mg PO FR 01/26/24 02/04/25 Apixaban [Eliquis] 5 mg PO BID@0900,209901/26/24 02/04/25 Ferrous Sulfate [Iron] 325 mg PO DAILY@89901/26/24 02/04/25 L.acidoph,Paracasei, B.lactis 1 cap PO DAILY@89901/26/24 02/04/25 [Probiotic] Loratadine [Claritin] 10 mg PO DAILY@89901/26/24 02/04/25 Midodrine HCl [ProAmatine] 10 mg PO BID@0900,1800 01/26/24 02/04/25 Mirtazapine [Remeron] 30 mg PO HS@209901/26/24 02/04/25 Multivitamins, Thera [Multivitamin 1 tab PO DAILY@89901/26/24 02/04/25 (formulary)] busPIRone HCl [Buspar] 5 mg PO TID@0900,1300,209901/26/24 02/04/25 Acetaminophen Tab [Tylenol] 650 mg PO Q6H PRN 02/04/25 02/04/25 FLUoxetine HCL [PROzac] 40 mg PO DAILY@89902/04/25 02/04/25 Famotidine [Pepcid] 40 mg PO HS@209902/04/25 02/04/25 Lactulose [Constulose] 20 gm PO BID PRN 02/04/25 02/04/25 Nitrofurantoin Monohyd/M-Cryst 100 mg PO BID@0900,2100 02/04/25 02/04/25 [Macrobid] Potassium Chloride ER [K-Dur 10] 10 meq PO DAILY@0900 02/04/25 02/04/25 Prostat Awc 30 ml PO TID@0900,1300,2100 02/04/25 02/04/25 guaiFENesin SYRUP 100MG/5ML 200 mg PO Q4H PRN 02/04/25 02/04/25 [Robitussin] oxyCODONE-APAP 10-325MG [Percocet 1 tab PO Q4H 02/04/25 02/04/25 10-325 mg] Allergies Allergy/AdvReac Type Severity Reaction Status Date / Time tuberculin, purified protein Allergy Rash/Hives Verified 02/04/25 12:38 deriva Review of Systems ROS Statement: Those systems with pertinent positive or pertinent negative responses have been documented in the HPI. ROS Other: All systems not noted in ROS Statement are negative. 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 paraplegic History of Any Multi-Drug Resistant Organisms: C-DIFF Date of last positivie culture/infection: 01-26-24 MDRO Source:: stool Past Surgical History: Section, Cholecystectomy Additional Past Surgical History / Comment(s): x2 bariatric surgeries, hernia repair, lymph node removal. Past Anesthesia/Blood Transfusion Reactions: No Reported Reaction Additional Past Anesthesia/Blood Transfusion Reaction / Comment(s): no known hx blood transfusion Past Psychological History: Anxiety, Depression Smoking Status: Former smoker Past Alcohol Use History: None Reported Past Drug Use History: None Reported - Past Family History Mother Family Medical History: Diabetes Mellitus Father Family Medical History: CVA/TIA General Exam Limitations: no limitations General appearance: alert, in no apparent distress Head exam: Present: atraumatic, normocephalic, normal inspection Respiratory exam: Present: normal lung sounds bilaterally. Absent: respiratory distress, wheezes, rales, rhonchi, stridor Cardiovascular Exam: Present: regular rate, normal rhythm, normal heart sounds. Absent: systolic murmur, diastolic murmur, rubs, gallop, clicks GI/Abdominal exam: Present: soft, normal bowel sounds, other (Left-sided ostomy). Absent: distended, tenderness, guarding, rebound, rigid Course Vital Signs 02/04/25 02/04/25 02/04/25 08:07 09:37 10:29 Temperature 97.6 F Pulse Rate 75 125 H Respiratory 16 16 19 Rate Blood Pressure 122/91 118/86 O2 Sat by Pulse 97 97 Oximetry 02/04/25 02/04/25 02/04/25 11:30 12:35 13:21 Temperature Pulse Rate 120 H 121 H 96 Respiratory 18 16 17 Rate Blood Pressure 105/86 108/71 112/94 O2 Sat by Pulse 98 Oximetry 02/04/25 13:55 Temperature Pulse Rate 130 H Respiratory 18 Rate Blood Pressure 110/97 O2 Sat by Pulse 97 Oximetry Medical Decision Making - Medical Decision Making Was pt. sent in by a medical professional or institution (, PA, CUSTOMER OPERATIONS MANAGER, urgent care, hospital, or group home...) When possible be specific @ -shelter Did you speak to anyone other than the patient for history (EMS, parent, family, police, friend...)? What history was obtained from this source @ -No Did you review nursing and triage notes (agree or disagree)? Why? @ -I reviewed and agree with nursing and triage notes Were old charts reviewed (outside hosp., previous admission, EMS record, old E KG, old radiological studies, urgent care reports/EKG's, group home records)? Report findings @ -No old charts were reviewed Differential Diagnosis (chest pain, altered mental status, abdominal pain women, abdominal pain men, vaginal bleeding, weakness, fever, dyspnea, syncope, headache, dizziness, GI bleed, back pain, seizure, CVA, palpatations, mental health, musculoskeletal)? @ -Differential Abdominal Pain Women: Appendicitis, Cholecystitis, diverticulosis, ischemic bowel, pancreatitis, h epatitis, UTI, gastroenteritis, AAA, incarcerated hernia, bowel obstruction, constipation, inflammatory bowel, hepatitis, peptic ulcer disease, splenic infarction, perforated viscus, vulvitis, ovarian torsion, PID, kidney stone, placenta abruption, this is not meant to be an all-inclusive list Differential Palpitations Ventricular arrhythmias, atrial arrhythmias, myocardial infarction, anemia, thy rotoxicosis, electrolyte imbalance, hypokalemia, pulmonary embolism, pulmonary disease, drugs, alcohol, anxiety, stress.... This is not meant to be an all-inclusive list. EKG interpreted by me (3pts min.). @ -As above X-rays interpreted by me (1pt min.). @ -None done CT interpreted by me (1pt min.). @ -CT pelvis showing evidence of inflammatory changes of the bladder, Irwin catheter placed and no obstruction no perforation ostomy noted U/S interpreted by me (1pt. min.). @ -None done What testing was considered but not performed or refused? (CT, X-rays, U/S, labs)? Why? @ -None What meds were considered but not given or refused? Why? @ -None Did you discuss the management of the patient with other professionals (professionals i.e. , PA, CUSTOMER OPERATIONS MANAGER, lab, RT, psych nurse, director of social media marketing, pedodontist, t eacher, commissioned police officer, bottle caser)? Give summary @ -[[facility] for admission Was smoking cessation discussed for >3mins.? @ -No Was critical care preformed (if so, how long)? @ -35 minutes Were there social determinants of health that impacted care today? How? (Homelessness, low income, unemployed, alcoholism, drug addiction, transportation, low edu. Level, literacy, decrease access to med. care, [facility], rehab)? @ -No Was there de-escalation of care discussed even if they declined (Discuss DNR or withdrawal of care, Hospice)? DNR status @ -No What co-morbidities impacted this encounter? (DM, HTN, Smoking, COPD, CAD, Cancer, CVA, ARF, Chemo, Hep., AIDS, mental health diagnosis, sleep apnea, morbid obesity)? @ -None Was patient admitted / discharged? Hospital course, mention meds given and route, prescriptions, significant lab abnormalities, going to OR and other pertinent info. @ -[Admitted patient presented for abdominal issues rule out obstruction CT was negative patient developed A-fib RVR while in the emergency department. Patient was given multiple doses metoprolol no symptom relief. Patient is not on any rate controlling medications were admitted for cardiology evaluation patient is currently anticoagulated. Undiagnosed new problem with uncertain prognosis? @ -No Drug Therapy requiring intensive monitoring for toxicity (Heparin, Nitro, Insulin, Cardizem)? @ -No Were any procedures done? @ -No Diagnosis/symptom? @ -A fib RVR, Acute, or Chronic, or Acute on Chronic? @ -acute Uncomplicated (without systemic symptoms) or Complicated (systemic symptoms)? @ -Complicated Side effects of treatment? @ -No Exacerbation, Progression, or Severe Exacerbation? @ -No Poses a threat to life or bodily function? How? (Chest pain, USA, [place], pneumonia, PE, COPD, DKA, ARF, appy, cholecystitis, CVA, Diverticulitis, Homicidal, Suicidal, threat to staff... and all critical care pts) @ -Yes risk to cardiac function - Lab Data Result diagrams: 02/04/25 09:20 02/04/25 09:20 Lab Results 02/04/25 02/04/25 02/04/25 Range/Units 09:20 09:20 09:20 WBC 6.52 (4.50-10.00) 10*3/uL RBC 3.56 L (4.10-5.20) 10*6/uL Hgb 10.9 L (12.0-15.0) g/dL Hct 34.5 L (37.2-46.3) % MCV 96.9 (80.0-97.0) fL MCH 30.6 (27.0-32.0) pg MCHC 31.6 L (32.0-37.0) g/dL Plt Count 437 (140-440) 10*3/uL MPV 8.5 L (9.5-12.2) fL Immature Gran % (Auto) 0.5 % Neutrophils % 63.1 % Lymphocytes % 25.8 % Monocytes % 6.6 % Eosinophils % 2.8 % Basophils % 1.2 % Immature Gran # 0.03 (0.00-0.04) 10*3/uL Neutrophils # 4.12 (1.80-7.70) 10*3/uL Lymphocytes # 1.68 (0.90-5.00) 10*3/uL Monocytes # 0.43 (0.20-1.00) 10*3/uL Eosinophils # 0.18 (0.04-0.35) 10*3/uL Basophils # 0.08 (0.00-0.10) 10*3/uL Sodium 141 (137-145) mmol/L Potassium 3.6 (3.5-5.1) mmol/L Chloride 106 (98-107) mmol/L Carbon Dioxide 26 (22-30) mmol/L Anion Gap 9 mmol/L BUN 24 H (7-17) mg/dL Creatinine 0.45 L (0.52-1.04) mg/dL Est GFR (CKD-EPI)AfAm >90 (>60 ml/min/1.73 sqM) Est GFR (CKD-EPI)NonAf >90 (>60 ml/min/1.73 sqM) Glucose 81 (74-99) mg/dL Plasma Lactic Acid Ronak 1.3 (0.7-2.0) mmol/L Calcium 8.6 (8.4-10.2) mg/dL Total Bilirubin 0.5 (0.2-1.3) mg/dL AST 22 (14-36) U/L ALT 14 (4-34) U/L Alkaline Phosphatase 216 H (38-126) U/L Total Protein 6.7 (6.3-8.2) g/dL Albumin 2.9 L (3.5-5.0) g/dL Lipase 42 (23-300) U/L - EKG Data -: EKG Interpreted by Me EKG Comments: EKG performed at 12: 32 rate of 125 QRS 82 QT/QTc 333/407 Critical Care Time Critical Care Time: Yes Total Critical Care Time: 35 Disposition Clinical Impression: Atrial fibrillation with RVR Disposition: ADMITTED IP TO THIS HOSP Condition: Fair Referrals: Will Price MD [Primary Care Provider] - 1-2 days Time of Disposition: 14:40
[2025-02-04 09:45] LABS: Basophils # (A) 0.08 10*3/uL (0.00-0.10); Basophils % (A) 1.2 %; Eosinophils # (A) 0.18 10*3/uL (0.04-0.35); Eosinophils % (A) 2.8 %; HCT 34.5 % (37.2-46.3); HGB 10.9 g/dL (12.0-15.0); Lymphocytes # (A) 1.68 10*3/uL (0.90-5.00); Lymphocytes % (A) 25.8 %; MCH 30.6 pg (27.0-32.0); MCHC 31.6 g/dL (32.0-37.0); MCV 96.9 fL (80.0-97.0); Mean Platelet Volume 8.5 fL (9.5-12.2); Monocytes # (A) 0.43 10*3/uL (0.20-1.00); Monocytes % (A) 6.6 %; Neutrophils # (A) 4.12 10*3/uL (1.80-7.70); Neutrophils % (A) 63.1 %; Platelet Count 437 10*3/uL (140-440); RBC 3.56 10*6/uL (4.10-5.20); RDW 15.4 % (11.5-14.5); WBC 6.52 10*3/uL (4.50-10.00)
[2025-02-04 10:07] LABS: ALT 14 U/L (4-34); AST 22 U/L (14-36); African American GFR (CKD) >90 (>60 ml/min/1.73 sqM); Albumin 2.9 g/dL (3.5-5.0); Alkaline Phosphatase 216 U/L (38-126); Anion Gap 9 mmol/L; Blood Urea Nitrogen 24 mg/dL (7-17); Calcium 8.6 mg/dL (8.4-10.2); Carbon Dioxide 26 mmol/L (22-30); Chloride 106 mmol/L (98-107); Glucose 81 mg/dL (74-99); Lipase 42 U/L (23-300); Non-African American GFR(CKD) >90 (>60 ml/min/1.73 sqM); Potassium 3.6 mmol/L (3.5-5.1); Sodium 141 mmol/L (137-145); Total Bilirubin 0.5 mg/dL (0.2-1.3); Total Protein 6.7 g/dL (6.3-8.2)
--- NOTE | 2025-02-04 11:39 | CT ---
EXAMINATION TYPE: CT abdomen pelvis w con DATE OF EXAM: 02/04/2025 11:02 AM COMPARISON: CT abdomen pelvis most recent from 04/11/2024 CLINICAL INDICATION: Female, 79 years old with history of abdominal pain; Abdominal pain TECHNIQUE: Axial CT abdomen pelvis w con;Sagittal and coronal reformats were created on a separate w orkstation. Contrast used:100 ml mL of Isovue 300 with IV Contrast, (none if empty) Oral contrast used: with Oral Contrast (none if empty) CT DLP: 731.9 mGycm, Automated exposure control for dose reduction was used. FINDINGS: LOWER CHEST: Right lower lobe consolidation changes possibly atelectasis with Small right pleural effusion. ABDOMEN LIVER: Unremarkable GALLBLADDER AND BILE DUCTS: The gallbladder is surgically absent. PANCREAS: Unremarkable. SPLEEN: Unremarkable. ADRENAL GLANDS: Unremarkable. KIDNEYS AND URETERS: No evidence of hydronephrosis or obstructing renal calculus. The ureters are unr emarkable. PELVIS BLADDER: Nondistended with Irwin catheter in place. There is mild inflammation changes around the uri nary bladder. REPRODUCTIVE: The uterus is surgically absent. ABDOMEN & PELVIS STOMACH AND BOWEL: No evidence of bowel obstruction. Postsurgical changes to the gastric lumen. Posts urgical changes to the small and large bowel. Moderate hiatal hernia present. Left lower quadrant ost xiomara present. No evidence for wall thickening. PERITONEUM/RETROPERITONEUM: No evidence of pneumoperitoneum or free fluid. VASCULATURE: No evidence of aortic aneurysm. MUSCULOSKELETAL: No acute osseous abnormalities. Moderate disc degeneration changes are present throu ghout the thoracolumbar spine. LYMPH NODES: No gross evidence for lymphadenopathy. Indeterminate fluid collection along the right la teral hip measuring 16.5 x 2.0 x 1.3 cm and extends up towards gluteus kalia muscle. SOFT TISSUE/ABDOMINAL WALL: Post surgical changes anterior abdominal wall. IMPRESSION: 1. Postsurgical changes of gastric lumen with moderate hiatal hernia. 2. Left lower quadrant ostomy present. No evidence for bowel obstruction. Postsurgical changes to th e sigmoid colon. 3. Right lower lobe consolidation with associated pleural effusion. This is thought to be in the bas is of atelectasis. Correlate for signs and symptoms of pneumonia/aspiration. 4. Right lateral thigh fluid collection. Correlate with ultrasound correlate for history of trauma. Findings could represent hematoma versus an infectious etiologies. 5. Irwin catheter in place with inflammation changes on the bladder bennett correlate for cystitis. [facility], , 02/04/2025 11:36 AM
[2025-02-04] MEDS: SODIUM CHLORIDE 0.9% 1,000 ML IV ONE (12:34)
[2025-02-04] MEDS: METOPROLOL TARTRATE 5 MG/5 ML VIAL IVP STA ×2 (12:37→13:52)
[2025-02-04] MEDS ORDERED: NALOXONE 0.4 MG/ML 1 ML VIAL IV PRN (14:42)
[2025-02-04] MEDS ORDERED: ACETAMINOPHEN TAB 325 MG TAB PO PRN (14:43)
[2025-02-04] MEDS ORDERED: LACTULOSE 20 GM/30 ML CUP PO PRN (14:43)
[2025-02-04] MEDS ORDERED: guaiFENesin SYRUP 100MG/5ML 200 MG/10 ML CUP PO PRN (14:43)
[2025-02-04] MEDS: oxyCODONE-APAP 10-325MG 1 EACH TAB PO SCH (15:09)
--- NOTE | 2025-02-04 17:12 | XR ---
EXAMINATION TYPE: XR chest 1V portable DATE OF EXAM: 02/04/2025 4:44 PM COMPARISON: CT same day CLINICAL INDICATION: Female, 79 years old with history of rt pneumonia; [facility] TECHNIQUE: XR chest 1V portable Frontal view of the chest. FINDINGS: Lungs/Pleura: Improved aeration of lungs on today's exam. No definitive airspace disease identified. No evidence of pneumothorax or large pleural effusion. Pulmonary vascularity: Unremarkable. Heart/mediastinum: Cardiomediastinal silhouette is unremarkable. Musculoskeletal: No acute osseous pathology. IMPRESSION: Consolidation changes seen on CT are less well appreciated on frontal view. Findings suggest atelecta sis on CT imaging. [facility], , 02/04/2025 5:09 PM
[2025-02-04] MEDS: MIDODRINE 5 MG TAB PO SCH (17:45)
[2025-02-04 18:12] LABS: Appearance,Urine Cloudy (Clear); Bacteria,Urine Rare /hpf; Bilirubin,Urine Negative (Negative); Blood,Urine Large (Negative); Color,Urine Yellow; Glucose,Urine (UA) Negative (Negative); Ketones,Urine Negative (Negative); Leukocyte Esterase,Urine Large (Negative); Nitrite,Urine Negative (Negative); Protein,Urine 1+ (Negative); RBC,Urine >182 /hpf (0-5); Squamous Epithelial Cell,Urine 1 /hpf (0-4); WBC,Urine >182 /hpf (0-5)
[2025-02-04] MEDS: IPRATROPIUM-ALBUTEROL 3 ML NEB INHALATION SCH (20:26)
[2025-02-04] MEDS ORDERED: NON FORMULARY DRUG (Prostat Awc 30 ML) PO SCH (21:00)
[2025-02-04] MEDS: APIXABAN 5 MG TAB PO SCH (21:31)
[2025-02-04] MEDS: MIRTAZAPINE 15 MG TAB PO SCH (21:31)
[2025-02-04] MEDS: busPIRone HCl 5 MG TAB PO SCH (21:31)
[2025-02-04] MEDS: NITROFURANTOIN MONOHYD/M-CRYST 100 MG CAP PO SCH (21:31)
[2025-02-04] MEDS: FAMOTIDINE 20 MG TAB PO SCH (21:31)
[2025-02-05] MEDS: DILTIAZEM 125 MG in DEXTROSE 5% IN WATER 100 ML IV SCH (00:23)
--- NOTE | 2025-02-05 02:54 | HP ---
HISTORY AND PHYSICAL CHIEF COMPLAINT: Abdominal pain and concern for stomal herniation and constipation. HISTORY OF PRESENT ILLNESS: This is an 79-year-old woman with past medical history of multiple medical problems, had a suspected stomal herniation. The patient was evaluated by a surgeon's office and was told everything is okay, but the long term was concerned because of multiple symptomatology including abdominal discomfort as well as constipation. The patient also recently had a flap procedure for the decubitus by a plastic surgeon in [facility]. So, the patient was taken to [facility] and admitted for further evaluation and treatment. While in the ER, the patient had episode of atrial fibrillation, which was spontaneously reverted back to normal sinus rhythm. There is no history of fever, rigors, or chills at this time. PAST MEDICAL HISTORY: Reviewed include atrial fibrillation, history of stage IV pressure ulcer, history of colostomy. Rest of the history and rest of the chart is also reviewed. HOME MEDICATIONS: Reviewed, which include Tylenol. Doses and rest of medications reviewed. ALLERGIES: Tuberculin. FAMILY HISTORY: History of diabetes mellitus in the family. SOCIAL HISTORY: Previous history of smoking. REVIEW OF SYSTEMS: 14-point review of systems negative except as mentioned earlier. PHYSICAL EXAMINATION: VITAL SIGNS: Pulse 130 and converted to 82, blood pressure 130/78, respirations 19. HEENT: Conjunctivae normal. NECK: No JVD. CARDIOVASCULAR: S1, S2. RESPIRATION: Breath sounds diminished at the bases. ABDOMEN: Soft. Colostomy present. Nontender. No mass palpable. EXTREMITIES: Legs, no edema, no swelling. ACUTE CARE SURGEON: No focal deficit. Decubitus ulcer, status post surgery. LABORATORY DATA: Hemoglobin 10. Rest of the labs are noted. ASSESSMENT: 1. Paroxysmal atrial fibrillation with fast ventricular rate. 2. Abdominal discomfort, rule out stomal herniation. 3. Sacral decubitus ulcer, status post [facility]. 4. Anemia, normocytic. 5. History of colon cancer, history of spinal injury and lower limb paralysis. 6. History of anxiety and depression. RECOMMENDATIONS: This 79-year-old woman presented with multiple complex medical issues. We will monitor the patient closely. I would recommend to continue the current medication. I would recommend surgery and Cardiology consultations. Monitor closely telemetry. Resume the home medications. Symptomatic treatment for the constipation and guarded prognosis. Further recommendations to follow. MMODL / IJN: [id number] /
[2025-02-05 06:32] LABS: Basophils # (A) 0.07 10*3/uL (0.00-0.10); Basophils % (A) 1.1 %; Eosinophils # (A) 0.23 10*3/uL (0.04-0.35); Eosinophils % (A) 3.5 %; HCT 29.2 % (37.2-46.3); Lymphocytes # (A) 1.35 10*3/uL (0.90-5.00); Lymphocytes % (A) 20.7 %; MCHC 31.2 g/dL (32.0-37.0); MCV 96.4 fL (80.0-97.0); Mean Platelet Volume 8.8 fL (9.5-12.2); Monocytes # (A) 0.54 10*3/uL (0.20-1.00); Monocytes % (A) 8.3 %; Neutrophils % (A) 65.8 %; Platelet Count 438 10*3/uL (140-440); RBC 3.03 10*6/uL (4.10-5.20); RDW 15.3 % (11.5-14.5); WBC 6.53 10*3/uL (4.50-10.00)
[2025-02-05 06:46] LABS: African American GFR (CKD) >90 (>60 ml/min/1.73 sqM); Anion Gap 7 mmol/L; Blood Urea Nitrogen 14 mg/dL (7-17); Calcium 8.5 mg/dL (8.4-10.2); Carbon Dioxide 24 mmol/L (22-30); Chloride 106 mmol/L (98-107); Glucose 74 mg/dL (74-99); Non-African American GFR(CKD) >90 (>60 ml/min/1.73 sqM); Potassium 3.5 mmol/L (3.5-5.1); Sodium 137 mmol/L (137-145)
[2025-02-05 07:11] LABS: HGB 9.1 g/dL (12.0-15.0)
[2025-02-05] MEDS: LACTOBACILLUS ACIDOPHILUS/PECT 1 EACH CAPSULE PO SCH (08:52)
[2025-02-05] MEDS: LORATADINE 10 MG TAB PO SCH (08:53)
[2025-02-05] MEDS: FLUoxetine HCL 20 MG CAP PO SCH (08:54)
[2025-02-05] MEDS: MULTIVITAMINS, THERA 1 EACH TAB PO SCH (08:54)
[2025-02-05] MEDS: POTASSIUM CHLORIDE ER 10 MEQ TAB.ER.PRT PO SCH (08:55)
[2025-02-05] MEDS: FERROUS SULFATE 325 MG TAB PO SCH (08:55)
[2025-02-05] MEDS: METOPROLOL TARTRATE 25 MG TAB PO SCH (10:36)
--- NOTE | 2025-02-05 10:58 | P.CRDCN ---
History of Present Illness History of present illness: HISTORY OF PRESENT ILLNESS: This is a 79-year-old female with a past medical history significant for spinal cord injury, wheelchair-bound, paroxysmal atrial fibrillation, diverting colost xiomara, urinary incontinence with diverting urostomy, and large decubitus sacral ulcer. Patient follows in the office with Dr. Hernandez. We have been asked to see the patient in consultation for atrial fibrillation. Patient examined at the bedside in the emergency room. Patient presented to the hospital with a chief complaint of abdominal pain. Patient was found to be in A-fib with RVR. She was started on IV Cardizem. She has converted to sinus mechanism and is maintaining sinus mechanism at the time of examination. She denies any chest pain or pressure. Denies any shortness of breath. DIAGNOSTICS: - EKG reveals A-fib with RVR. Repeat EKG reveals sinus mechanism. - Chest xray consolidation changes seen on CT or less well-appreciated on frontal view. Findings suggest atelectasis on CT imaging. - Laboratory data: WBC 6.53. Hemoglobin 9.1. Platelet count 438. Sodium 137. Potassium 3.5. BUN 14. Creatinine 0.44. Lactic acid 1.3. - Current home cardiac medications include midodrine 10 mg twice daily, Eliquis 5 mg twice daily. - Most recent echocardiogram obtained in September 2024 at the cardiology office revealed ejection fraction 55%, mild MR, mild TR - Cardiac catheterization history: Unknown REVIEW OF SYSTEMS: At the time of my exam: CONSTITUTIONAL: Denies fever or chills. HEENT: Denies blurred vision, vision changes, or eye pain. Denies hemoptysis CARDIOVASCULAR: Denies chest pain. Denies orthopnea. Denies PND. Denies palpitations RESPIRATORY: Denies shortness of breath. GASTROINTESTINAL: Denies abdominal pain. Denies nausea or vomiting. HEMATOLOGIC: Denies bleeding disorders. GENITOURINARY: Denies any blood in urine. SKIN: Denies pruitis. Denies rash. PHYSICAL EXAM: VITAL SIGNS: Reviewed. GENERAL: Well-developed in no acute distress. HEENT: Head is normocephalic. Pupils are equal, round. Sclerae anicteric. Mucous membranes of the mouth are moist. Neck supple. No JVD or thyromegaly LUNGS: Respirations even and unlabored. Lungs essentially clear to auscultation bilaterally. HEART: Regular rate and rhythm. S1 and S2 heard. ABDOMEN: Soft. Nondistended. Nontender. EXTREMITIES: Normal range of motion. No clubbing or cyanosis. Peripheral pulses intact. No lower extremity edema NEUROLOGIC: Awake and alert. Oriented x 3. ASSESSMENT: Abdominal pain Paroxysmal atrial fibrillation with RVR, currently maintaining sinus mechanism History of spinal cord injury, wheelchair-bound History of diverting colostomy History of diverting urostomy History of decubitus sacral ulcer, status post recent surgery at [facility] PLAN: No need to repeat echocardiogram as this was performed in September 2024 Continue anticoagulation with Eliquis Discontinue IV Cardizem Add metoprolol tartrate 25 mg twice a day Continue telemetry monitoring Check TSH Further recommendations pending patient course Nurse practitioner note has been reviewed by physician. Signing provider agrees with the documented findings, assessment, and plan of care documented by EVAPORATOR OPERATOR as a scribe. Past Medical History Past Medical History: Atrial Fibrillation, Cancer Additional Past Medical History / Comment(s): stage 4 pressure sore-being seen in wound center @ [facility] and using wound vac at [facility],wound sepsis Sep 2023,began w/ afib sep 2023-no longer needing to follow w/ spring winder,had hospitalization [facility] January 2024 for c diff,hypotension, bladder and colon cancer-yrs ago, spinal injury post chiropractor appointment in August 2023 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 paraplegic History of Any Multi-Drug Resistant Organisms: C-DIFF Date of last positivie culture/infection: 01-26-24 MDRO Source:: stool Past Surgical History: Section, Cholecystectomy Additional Past Surgical History / Comment(s): x2 bariatric surgeries, hernia repair, lymph node removal. Past Anesthesia/Blood Transfusion Reactions: No Reported Reaction Additional Past Anesthesia/Blood Transfusion Reaction / Comment(s): no known hx blood transfusion Past Psychological History: Anxiety, Depression Smoking Status: Former smoker Past Alcohol Use History: None Reported Past Drug Use History: None Reported - Past Family History Mother Family Medical History: Diabetes Mellitus Father Family Medical History: CVA/TIA Medications and Allergies Home Medications Medication Instructions Recorded Confirmed Type Alendronate Sodium [Fosamax] 70 mg PO FR 01/26/24 02/04/25 History Apixaban [Eliquis] 5 mg PO BID@0900,2100 01/26/24 02/04/25 History Ferrous Sulfate [Iron] 325 mg PO DAILY@89901/26/24 02/04/25 History L.acidoph,Paracasei, B.lactis 1 cap PO DAILY@89901/26/24 02/04/25 History [Probiotic] Loratadine [Claritin] 10 mg PO DAILY@89901/26/24 02/04/25 History Midodrine HCl [ProAmatine] 10 mg PO BID@0900,1800 01/26/24 02/04/25 History Mirtazapine [Remeron] 30 mg PO HS@209901/26/24 02/04/25 History Multivitamins, Thera [Multivitamin 1 tab PO DAILY@89901/26/24 02/04/25 History (formulary)] busPIRone HCl [Buspar] 5 mg PO TID@0900,1300,209901/26/24 02/04/25 History Acetaminophen Tab [Tylenol] 650 mg PO Q6H PRN 02/04/25 02/04/25 History FLUoxetine HCL [PROzac] 40 mg PO DAILY@89902/04/25 02/04/25 History Famotidine [Pepcid] 40 mg PO HS@209902/04/25 02/04/25 History Lactulose [Constulose] 20 gm PO BID PRN 02/04/25 02/04/25 History Nitrofurantoin Monohyd/M-Cryst 100 mg PO BID@0900,209902/04/25 02/04/25 History [Macrobid] Potassium Chloride ER [K-Dur 10] 10 meq PO DAILY@89902/04/25 02/04/25 History Prostat Awc 30 ml PO TID@0900,1300,209902/04/25 02/04/25 History guaiFENesin SYRUP 100MG/5ML 200 mg PO Q4H PRN 02/04/25 02/04/25 History [Robitussin] oxyCODONE-APAP 10-325MG [Percocet 1 tab PO Q4H 02/04/25 02/04/25 History 10-325 mg] Allergies Allergy/AdvReac Type Severity Reaction Status Date / Time tuberculin, purified protein Allergy Rash/Hives Verified 02/04/25 12:38 deriva Physical Exam Vitals: Vital Signs Pulse Resp BP Pulse Ox 02/05/25 08:02 76 02/05/25 06:51 74 17 111/73 95 02/05/25 01:11 75 17 124/75 98 02/04/25 20:29 65 02/04/25 18:28 70 19 135/77 96 02/04/25 17:14 64 18 120/76 98 02/04/25 16:02 18 02/04/25 15:12 82 19 130/78 96 02/04/25 13:55 130 H 18 110/97 97 02/04/25 13:21 96 17 112/94 98 02/04/25 12:35 121 H 16 108/71 02/04/25 11:30 120 H 18 105/86 02/04/25 10:29 19 02/04/25 09:37 125 H 16 118/86 97 Results 02/05/25 05:44 02/05/25 05:44 Cardiac Enzymes 02/04/25 Range/Units 09:20 AST 22 (14-36) U/L CBC 02/04/25 02/05/25 Range/Units 09:20 05:44 WBC 6.52 6.53 (4.50-10.00) 10*3/uL RBC 3.56 L 3.03 L (4.10-5.20) 10*6/uL Hgb 10.9 L 9.1 L D (12.0-15.0) g/dL Hct 34.5 L 29.2 L (37.2-46.3) % Plt Count 437 438 (140-440) 10*3/uL Comprehensive Metabolic Panel 02/04/25 02/05/25 Range/Units 09:20 05:44 Sodium 141 137 (137-145) mmol/L Potassium 3.6 3.5 (3.5-5.1) mmol/L Chloride 106 106 (98-107) mmol/L Carbon Dioxide 26 24 (22-30) mmol/L BUN 24 H 14 (7-17) mg/dL Creatinine 0.45 L 0.44 L (0.52-1.04) mg/dL Glucose 81 74 (74-99) mg/dL Calcium 8.6 8.5 (8.4-10.2) mg/dL AST 22 (14-36) U/L ALT 14 (4-34) U/L Alkaline Phosphatase 216 H (38-126) U/L Total Protein 6.7 (6.3-8.2) g/dL Albumin 2.9 L (3.5-5.0) g/dL Current Medications Generic Name Dose Route Start Last Admin Trade Name Freq PRN Reason Stop Dose Admin Acetaminophen 650 mg 02/04/25 14:43 Acetaminophen Tab 325 Mg Tab PO Q6H PRN Pain Albuterol/Ipratropium 3 ml 02/04/25 20:00 02/05/25 08:01 Ipratropium-Albuterol 3 Ml Neb INHALATION 3 ml RT-TID AISHA Administration Apixaban 5 mg 02/04/25 21:00 02/04/25 21:31 Apixaban 5 Mg Tab PO 5 mg BID@0900,2100 AISHA Administration Protocol Buspirone HCl 5 mg 02/04/25 21:00 02/04/25 21:31 Buspirone Hcl 5 Mg Tab PO 5 mg TID@0900,1300,2100 AISHA Administration Famotidine 40 mg 02/04/25 21:00 02/04/25 21:31 Famotidine 20 Mg Tab PO 40 mg HS@2100 AISHA Administration Ferrous Sulfate 325 mg 02/05/25 09:00 Ferrous Sulfate 325 Mg Tab PO DAILY@0900 [facility] Fluoxetine HCl 40 mg 02/05/25 09:00 Fluoxetine Hcl 20 Mg Cap PO DAILY@0900 [facility] Guaifenesin 200 mg 02/04/25 14:43 Guaifenesin Syrup 100mg/5ml 200 Mg/10 Ml Cup PO Q4H PRN Cough Diltiazem HCl 125 mg/ Dextrose 125 mls @ 5 mls/hr 02/04/25 14:45 02/05/25 00:23 /Water IV Not Given .Q24H AISHA Protocol 5 MG/HR Ceftriaxone Sodium 1 gm/ 50 mls @ 100 mls/hr 02/04/25 16:30 02/04/25 17:13 Sodium Chloride IVPB 100 mls/hr Q24HR AISAH Administration Protocol Lactobacillus Acidophilus 1 each 02/05/25 09:00 Lactobacillus Acidophilus/Pect 1 Each Capsule PO DAILY@0900 AISHA Lactulose 20 gm 02/04/25 14:43 Lactulose 20 Gm/30 Ml Cup PO BID PRN Constipation Loratadine 10 mg 02/05/25 09:00 Loratadine 10 Mg Tab PO DAILY@0900 [facility] Midodrine 10 mg 02/04/25 18:00 02/04/25 17:45 Midodrine 5 Mg Tab PO 10 mg BID@0900,1800 [facility] Administration Mirtazapine 30 mg 02/04/25 21:00 02/04/25 21:31 Mirtazapine 15 Mg Tab PO 30 mg HS@2100 [facility] Administration Multivitamins 1 each 02/05/25 09:00 Multivitamins, Thera 1 Each Tab PO DAILY@0900 [facility] Naloxone HCl 0.2 mg 02/04/25 14:42 Naloxone 0.4 Mg/Ml 1 Ml Vial IV Q2M PRN Opioid Reversal Nitrofurantoin Macrocrystals 100 mg 02/04/25 21:00 02/04/25 21:31 Nitrofurantoin Monohyd/M-Cryst 100 Mg Cap PO 100 mg BID@0900,2100 [facility] Administration Protocol Oxycodone/Acetaminophen 1 each 02/04/25 15:00 02/05/25 06:51 Oxycodone-Apap 10-325mg 1 Each Tab PO Not Given Q4H [facility] Potassium Chloride 10 meq 02/05/25 09:00 Potassium Chloride Er 10 Meq Tab.Er.Prt PO DAILY@0900 [facility] 02/05/25 05:44 02/05/25 05:44
[2025-02-05 11:27] LABS: T4, Free (Free Thyroxine) 0.34 ng/dL (0.78-2.19)
[2025-02-05] MEDS: METOPROLOL SUCCINATE (ER) 25 MG TAB.ER.24H PO SCH (12:03)
--- NOTE | 2025-02-05 13:11 | P.GSCN ---
History of Present Illness Consult date: 02/05/25 History of present illness: CHIEF COMPLAINT: Abdominal pain HISTORY OF PRESENT ILLNESS: This is an 79-year-old female who currently reports no abdominal pain. But per ER report she did present with abdominal pain and evaluation for constipation. She is from [facility]. Patient currently has stool in her colostomy bag. She has a history of stage IV decubitus ulcer with a diverting colostomy that was completed in April 2024. Patient reports that the decubitus ulcer has improved. Patient reports that abdominal pain does improve when gas or stool are passed through into the ostomy bag. Surgical service consulted for possible stomal hernia. CT scan pelvis completed reported moderate hiatal hernia no evidence of bowel obstruction and right lateral thigh fluid collection, hematoma versus infection. Patient denies any fever chills or sweats. Patient is on Eliquis for A-fib and last dose was this AM (02/05/2025). PAST MEDICAL HISTORY: Atrial fibrillation,stage 4 pressure sore-being seen in wound center @ [facility] and using wound vac at [facility],wound sepsis Sep 2023,began w/ afib sep 2023-no longer needing to follow w/ christian science healer,had hospitalization [facility] January 2024 for c diff,hypotension, bladder and colon cancer-yrs ago, spinal injury post chiropractor appointment in August 2023 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 paraplegic PAST SURGICAL HISTORY: Section, Cholecystectomy, bariatric surgeries, hernia repair, lymph node removal. MEDICATIONS: See below ALLERGIES: See below SOCIAL HISTORY: No illicit drug use. REVIEW OF SYSTEMS: CONSTITUTIONAL: Denies fever or chills. HEENT: Denies blurred vision, vision changes, or eye pain. Denies hemoptysis CARDIOVASCULAR: Denies chest pain or pressure. RESPIRATORY: No shortness of breath. GASTROINTESTINAL: See HPI for pertinent findings HEMATOLOGIC: Denies bleeding disorders. GENITOURINARY: Denies any blood in urine or increased urinary frequency. SKIN: Denies pruitis. Denies rash. PHYSICAL EXAM: VITAL SIGNS: Reviewed GENERAL: Well-developed in no acute distress. HEENT: No sclera icterus. Extraocular movements grossly intact. Moist buccal mucosa. Head is atraumatic, normocephalic. No nasal drainage. ABDOMEN: Soft. Nondistended. Nontender. Colostomy bag left lower quadrant. No evidence of parastomal hernia. Stoma is retracted and beefy red. Colostomy bag with stool present. NEUROLOGIC: Alert and oriented. Cranial nerves II through XII grossly intact. LABORATORY DATA: WBC 6.53 Hgb 9.1 platelets 438 Sodium is 137 potassium 3.5 creatinine 0.44 IMAGING: CT scan abdomen pelvis reports postsurgical changes of the gastric lumen with moderate hiatal hernia. Left lower quadrant ostomy present. No evidence for bowel obstruction. Right lower lobe consolidation with associated pleural effusion. Likely atelectasis. Right lateral thigh fluid collection correlate with ultrasound for trauma. Findings could represent hematoma versus infectious etiology. ASSESSMENT: 1. Abdominal pain resolved. Stoma is retracted. Ostomy is functioning 2. History of stage IV decubitus ulcer with diverting colostomy PLAN: - Continue regular diet - No surgical intervention planned Physician Apparel Designer note has been reviewed by physician. Signing provider agrees with the documented findings, assessment, and plan of care. Past Medical History Past Medical History: Atrial Fibrillation, Cancer Additional Past Medical History / Comment(s): stage 4 pressure sore-being seen in wound center @ [facility] and using wound vac at [facility],wound sepsis Sep 2023,began w/ afib sep 2023-no longer needing to follow w/ [facility] science healer,had hospitalization [facility] January 2024 for c diff,hypotension, bladder and colon cancer-yrs ago, spinal injury post chiropractor appointment in August 2023 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 paraplegic History of Any Multi-Drug Resistant Organisms: C-DIFF Year Discovered:: 01-26-24 MDRO Source:: stool Past Surgical History: Section, Cholecystectomy Additional Past Surgical History / Comment(s): x2 bariatric surgeries, hernia repair, lymph node removal. Past Anesthesia/Blood Transfusion Reactions: No Reported Reaction Additional Past Anesthesia/Blood Transfusion Reaction / Comm: no known hx blood transfusion Past Psychological History: Anxiety, Depression Smoking Status: Former smoker Past Alcohol Use History: None Reported Past Drug Use History: None Reported - Past Family History Mother Family Medical History: Diabetes Mellitus Father Family Medical History: CVA/TIA Medications and Allergies Home Medications Medication Instructions Recorded Confirmed Type Alendronate Sodium [Fosamax] 70 mg PO FR 01/26/24 02/04/25 History Apixaban [Eliquis] 5 mg PO BID@0900,2100 01/26/24 02/04/25 History Ferrous Sulfate [Iron] 325 mg PO DAILY@89901/26/24 02/04/25 History L.acidoph,Paracasei, B.lactis 1 cap PO DAILY@89901/26/24 02/04/25 History [Probiotic] Loratadine [Claritin] 10 mg PO DAILY@89901/26/24 02/04/25 History Midodrine HCl [ProAmatine] 10 mg PO BID@0900,1800 01/26/24 02/04/25 History Mirtazapine [Remeron] 30 mg PO HS@209901/26/24 02/04/25 History Multivitamins, Thera [Multivitamin 1 tab PO DAILY@89901/26/24 02/04/25 History (formulary)] busPIRone HCl [Buspar] 5 mg PO TID@0900,1300,209901/26/24 02/04/25 History Acetaminophen Tab [Tylenol] 650 mg PO Q6H PRN 02/04/25 02/04/25 History FLUoxetine HCL [PROzac] 40 mg PO DAILY@89902/04/25 02/04/25 History Famotidine [Pepcid] 40 mg PO HS@209902/04/25 02/04/25 History Lactulose [Constulose] 20 gm PO BID PRN 02/04/25 02/04/25 History Nitrofurantoin Monohyd/M-Cryst 100 mg PO BID@0900,209902/04/25 02/04/25 History [Macrobid] Potassium Chloride ER [K-Dur 10] 10 meq PO DAILY@89902/04/25 02/04/25 History Prostat Awc 30 ml PO TID@0900,1300,209902/04/25 02/04/25 History guaiFENesin SYRUP 100MG/5ML 200 mg PO Q4H PRN 02/04/25 02/04/25 History [Robitussin] oxyCODONE-APAP 10-325MG [Percocet 1 tab PO Q4H 02/04/25 02/04/25 History 10-325 mg] Allergies Allergy/AdvReac Type Severity Reaction Status Date / Time tuberculin, purified protein Allergy Rash/Hives Verified 02/04/25 12:38 deriva Surgical - Exam Vital Signs Temp Pulse Resp BP Pulse Ox 97.6 F 75 16 122/91 97 02/04/25 08:07 02/04/25 08:07 02/04/25 08:07 02/04/25 08:07 02/04/25 08:07 Results - Labs 02/05/25 05:44 02/05/25 05:44 Abnormal Lab Results - Last 24 Hours (Table) 02/04/25 02/05/25 02/05/25 Range/Units 17:55 05:44 05:44 RBC 3.03 L (4.10-5.20) 10*6/uL Hgb 9.1 L D (12.0-15.0) g/dL Hct 29.2 L (37.2-46.3) % MCHC 31.2 L (32.0-37.0) g/dL MPV 8.8 L (9.5-12.2) fL Creatinine 0.44 L (0.52-1.04) mg/dL TSH (0.465-4.680) mIU/L Urine Appearance Cloudy H (Clear) Ur Specific [place] 1.050 H (1.001-1.035) Urine Protein 1+ H (Negative) Urine Blood Large H (Negative) Ur Leukocyte Esterase Large H (Negative) Urine RBC >182 H (0-5) /hpf Urine WBC >182 H (0-5) /hpf Urine WBC Clumps Moderate H (None) /hpf Urine Bacteria Rare H (None) /hpf 02/05/25 Range/Units 05:44 RBC (4.10-5.20) 10*6/uL Hgb (12.0-15.0) g/dL Hct (37.2-46.3) % MCHC (32.0-37.0) g/dL MPV (9.5-12.2) fL Creatinine (0.52-1.04) mg/dL TSH >100.000 H (0.465-4.680) mIU/L Urine Appearance (Clear) Ur Specific [place] (1.001-1.035) Urine Protein (Negative) Urine Blood (Negative) Ur Leukocyte Esterase (Negative) Urine RBC (0-5) /hpf Urine WBC (0-5) /hpf Urine WBC Clumps (None) /hpf Urine Bacteria (None) /hpf Diabetes panel 02/05/25 Range/Units 05:44 Sodium 137 (137-145) mmol/L Potassium 3.5 (3.5-5.1) mmol/L Chloride 106 (98-107) mmol/L Carbon Dioxide 24 (22-30) mmol/L BUN 14 (7-17) mg/dL Creatinine 0.44 L (0.52-1.04) mg/dL Glucose 74 (74-99) mg/dL Calcium 8.5 (8.4-10.2) mg/dL Thyroid panel 02/05/25 Range/Units 05:44 TSH >100.000 H (0.465-4.680) mIU/L Calcium panel 02/05/25 Range/Units 05:44 Calcium 8.5 (8.4-10.2) mg/dL Pituitary panel 02/05/25 02/05/25 Range/Units 05:44 05:44 Sodium 137 (137-145) mmol/L Potassium 3.5 (3.5-5.1) mmol/L Chloride 106 (98-107) mmol/L Carbon Dioxide 24 (22-30) mmol/L BUN 14 (7-17) mg/dL Creatinine 0.44 L (0.52-1.04) mg/dL Glucose 74 (74-99) mg/dL Calcium 8.5 (8.4-10.2) mg/dL TSH >100.000 H (0.465-4.680) mIU/L Adrenal panel 02/05/25 Range/Units 05:44 Sodium 137 (137-145) mmol/L Potassium 3.5 (3.5-5.1) mmol/L Chloride 106 (98-107) mmol/L Carbon Dioxide 24 (22-30) mmol/L BUN 14 (7-17) mg/dL Creatinine 0.44 L (0.52-1.04) mg/dL Glucose 74 (74-99) mg/dL Calcium 8.5 (8.4-10.2) mg/dL
[2025-02-05] MEDS: LEVOTHYROXINE 25 MCG TAB PO SCH (13:13)
--- NOTE | 2025-02-05 20:42 | PN ---
PROGRESS NOTE DATE OF SERVICE: 02/05/2025 SUBJECTIVE: This 79-year-old woman was admitted with abdominal discomfort and possible stomal herniation. Also, had paroxysmal atrial fibrillation. Multiple consultants are following the patient closely. The patient also had a right calf ulcer. Also, no chest pain or palpitation. PHYSICAL EXAMINATION: VITAL SIGNS: Pulse is 70, blood pressure 130/84, and respirations 16. CHEST: Clear to auscultation. CARDIOVASCULAR: S1, S2 muffled. ABDOMEN: Soft. LABORATORY DATA: Reviewed. TSH is more than 100 and T4 is low indicating hypothyroidism. UA noted. ASSESSMENT: 1. Paroxysmal atrial fibrillation with fast ventricular rate. 2. Abdominal discomfort, rule out stomal herniation. 3. Hypothyroidism. 4. Rule out urinary tract infection. 5. Sacral decubitus ulcer, status post [facility]. 6. Anemia, normocytic. 7. Right calf ulcer. 8. History of colon cancer and history of spinal injury with lower limb paralysis. 9. History of anxiety and depression. RECOMMENDATIONS: Recommend to continue current management and continue symptomatic treatment. Otherwise recommend Infectious Disease evaluation, closely follow with Cardiology and I would also recommend to add small dose of Synthroid and continue to monitor. We will also recommend free T4 also just to document deficiency. Other than that, Infectious Disease evaluation. Guarded prognosis because of multiple complex issues. Further recommendations to follow. MMODL / IJN: [id number] /
[2025-02-06 07:52] LABS: Basophils # (A) 0.09 10*3/uL (0.00-0.10); Basophils % (A) 1.3 %; Eosinophils # (A) 0.18 10*3/uL (0.04-0.35); Eosinophils % (A) 2.7 %; HCT 31.7 % (37.2-46.3); HGB 9.6 g/dL (12.0-15.0); Lymphocytes # (A) 2.08 10*3/uL (0.90-5.00); Lymphocytes % (A) 30.9 %; MCH 29.6 pg (27.0-32.0); MCHC 30.3 g/dL (32.0-37.0); MCV 97.8 fL (80.0-97.0); Mean Platelet Volume 8.8 fL (9.5-12.2); Monocytes # (A) 0.49 10*3/uL (0.20-1.00); Monocytes % (A) 7.3 %; Neutrophils # (A) 3.87 10*3/uL (1.80-7.70); Neutrophils % (A) 57.5 %; Platelet Count 429 10*3/uL (140-440); RBC 3.24 10*6/uL (4.10-5.20); RDW 15.2 % (11.5-14.5); WBC 6.73 10*3/uL (4.50-10.00)
[2025-02-06 08:06] LABS: African American GFR (CKD) >90 (>60 ml/min/1.73 sqM); Anion Gap 4 mmol/L; Blood Urea Nitrogen 13 mg/dL (7-17); Calcium 8.3 mg/dL (8.4-10.2); Carbon Dioxide 26 mmol/L (22-30); Chloride 108 mmol/L (98-107); Glucose 82 mg/dL (74-99); Non-African American GFR(CKD) >90 (>60 ml/min/1.73 sqM); Potassium 3.9 mmol/L (3.5-5.1); Sodium 138 mmol/L (137-145)
[2025-02-06] MEDS ORDERED: VANCOMYCIN IV PER PHARMACY 1 EACH MISC MISCELLANE PRN (09:54)
--- NOTE | 2025-02-06 09:54 | P.CONS ---
History of Present Illness - Reason for Consult Consult date: 02/05/25 Right lower extremity wound with drainage Requesting physician: Liliya Florez - Chief Complaint Abdominal pain x few days - History of Present Illness Patient is 79-year-old female with a past medical history significant for atrial fibrillation sepsis hypertension bladder and colon cancer history of stage IV sacral pressure ulcer for the patient did have a diverting colostomy in April 2024 patient did mention healing of her sacral pressure ulcer and now presenting to the [facility] concerning for abdominal pain and constipation patient did have some nausea but no vomiting patient denies having any chest pain shortness of breath or cough or fever patient also has developed a wound to the right lateral leg likely from pressure for couple of weeks patient did have mild aching pain to the right lateral leg wound without any radiation she denies significant drainage or presentation to the hospital patient was afebrile a few have been recorded subsequently patient was not tachycardic hypotensive or hypoxic she did have white count 6.52 creatinine 0.45 urine has been positive and the patient did have some suprapubic discomfort and did have a Irwin catheter meant clear when was last, patient did have a abdominal pelvis CT no evidence for bowel obstruction postsurgical changes right lower lobe consolidation with associated effusion right lateral thigh fluid collection inflammation changes on the bladder wall correlate for cystitis, infectious was consulted for right lower extremity wound concerning for cellulitis and drainage Review of Systems Positive point and negatives has been mentioned in the HPI, complete review of systems was performed and all other systems are negative Past Medical History Past Medical History: Atrial Fibrillation, Cancer Additional Past Medical History / Comment(s): stage 4 pressure sore-being seen in wound center @ [facility] and using wound vac at [facility],wound sepsis Sep 2023,began w/ afib sep 2023-no longer needing to follow w/ therapist's assistant,had hospitalization [facility] January 2024 for c diff,hypotension, bladder and colon cancer-yrs ago, spinal injury post chiropractor appointment in August 2023 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 paraplegic History of Any Multi-Drug Resistant Organisms: C-DIFF Year Discovered:: 01-26-24 MDRO Source:: stool Past Surgical History: Section, Cholecystectomy Additional Past Surgical History / Comment(s): x2 bariatric surgeries, hernia repair, lymph node removal. Past Anesthesia/Blood Transfusion Reactions: No Reported Reaction Additional Past Anesthesia/Blood Transfusion Reaction / Comm: no known hx blood transfusion Past Psychological History: Anxiety, Depression Smoking Status: Former smoker Past Alcohol Use History: None Reported Past Drug Use History: None Reported - Past Family History Mother Family Medical History: Diabetes Mellitus Father Family Medical History: CVA/TIA Medications and Allergies Home Medications Medication Instructions Recorded Confirmed Type Alendronate Sodium [Fosamax] 70 mg PO FR 01/26/24 02/04/25 History Apixaban [Eliquis] 5 mg PO BID@0900,209901/26/24 02/04/25 History Ferrous Sulfate [Iron] 325 mg PO DAILY@89901/26/24 02/04/25 History L.acidoph,Paracasei, B.lactis 1 cap PO DAILY@89901/26/24 02/04/25 History [Probiotic] Loratadine [Claritin] 10 mg PO DAILY@89901/26/24 02/04/25 History Midodrine HCl [ProAmatine] 10 mg PO BID@0900,1800 01/26/24 02/04/25 History Mirtazapine [Remeron] 30 mg PO HS@209901/26/24 02/04/25 History Multivitamins, Thera [Multivitamin 1 tab PO DAILY@89901/26/24 02/04/25 History (formulary)] busPIRone HCl [Buspar] 5 mg PO TID@0900,1300,209901/26/24 02/04/25 History Acetaminophen Tab [Tylenol] 650 mg PO Q6H PRN 02/04/25 02/04/25 History FLUoxetine HCL [PROzac] 40 mg PO DAILY@89902/04/25 02/04/25 History Famotidine [Pepcid] 40 mg PO HS@209902/04/25 02/04/25 History Lactulose [Constulose] 20 gm PO BID PRN 02/04/25 02/04/25 History Nitrofurantoin Monohyd/M-Cryst 100 mg PO BID@0900,2100 02/04/25 02/04/25 History [Macrobid] Potassium Chloride ER [K-Dur 10] 10 meq PO DAILY@89902/04/25 02/04/25 History Prostat Awc 30 ml PO TID@0900,1300,2100 02/04/25 02/04/25 History guaiFENesin SYRUP 100MG/5ML 200 mg PO Q4H PRN 02/04/25 02/04/25 History [Robitussin] oxyCODONE-APAP 10-325MG [Percocet 1 tab PO Q4H 02/04/25 02/04/25 History 10-325 mg] Allergies Allergy/AdvReac Type Severity Reaction Status Date / Time tuberculin, purified protein Allergy Rash/Hives Verified 02/04/25 12:38 deriva Physical Exam Vitals: Vital Signs Temp Pulse Resp BP Pulse Ox 02/05/25 10:00 97.8 F 70 16 138/85 98 02/05/25 08:51 78 16 123/74 95 02/05/25 08:14 76 02/05/25 08:02 76 02/05/25 06:51 74 17 111/73 95 02/05/25 01:11 75 17 124/75 98 02/04/25 20:29 65 02/04/25 18:28 70 19 135/77 96 02/04/25 17:14 64 18 120/76 98 02/04/25 16:02 18 02/04/25 15:12 82 19 130/78 96 02/04/25 13:55 130 H 18 110/97 97 02/04/25 13:21 96 17 112/94 98 GENERAL DESCRIPTION: Elderly female lying in bed, no distress. No tachypnea or accessory muscle of respiration use. HEENT: Shows Pallor , no scleral icterus. Oral mucous membrane is dry. NECK: Trachea central, no thyromegaly. LUNGS: Unlabored breathing. Clear to auscultation anteriorly. No wheeze or crackle. HEART: S1, S2, regular rate and rhythm. No loud murmur ABDOMEN: Soft, no tenderness , guarding or rigidity, no organomegaly EXTREMITIES: Right lower extremity on the lateral side did have a wound with minimal drainage and minimal redness SKIN: No rash, no masses palpable. NEUROLOGICAL: The patient is awake, alert, oriented x3, mood and affect normal. Results CBC & Chem 7: 02/06/25 07:18 02/06/25 07:18 Labs: Abnormal Lab Results - Last 24 Hours (Table) 06/07/2102/05/25 02/05/25 Range/Units 17:55 05:44 05:44 RBC 3.03 L (4.10-5.20) 10*6/uL Hgb 9.1 L D (12.0-15.0) g/dL Hct 29.2 L (37.2-46.3) % MCHC 31.2 L (32.0-37.0) g/dL MPV 8.8 L (9.5-12.2) fL Creatinine 0.44 L (0.52-1.04) mg/dL TSH (0.465-4.680) mIU/L Free T4 (0.78-2.19) ng/dL Urine Appearance Cloudy H (Clear) Ur Specific [place] 1.050 H (1.001-1.035) Urine Protein 1+ H (Negative) Urine Blood Large H (Negative) Ur Leukocyte Esterase Large H (Negative) Urine RBC >182 H (0-5) /hpf Urine WBC >182 H (0-5) /hpf Urine WBC Clumps Moderate H (None) /hpf Urine Bacteria Rare H (None) /hpf 02/05/25 Range/Units 05:44 RBC (4.10-5.20) 10*6/uL Hgb (12.0-15.0) g/dL Hct (37.2-46.3) % MCHC (32.0-37.0) g/dL MPV (9.5-12.2) fL Creatinine (0.52-1.04) mg/dL TSH >100.000 H (0.465-4.680) mIU/L Free T4 0.34 L (0.78-2.19) ng/dL Urine Appearance (Clear) Ur Specific [place] (1.001-1.035) Urine Protein (Negative) Urine Blood (Negative) Ur Leukocyte Esterase (Negative) Urine RBC (0-5) /hpf Urine WBC (0-5) /hpf Urine WBC Clumps (None) /hpf Urine Bacteria (None) /hpf Assessment and Plan (1) Leg wound, right Current Visit: Yes Status: Acute Code(s): S81.801A - UNSPECIFIED OPEN WOUND, RIGHT LOWER LEG, INITIAL ENCOUNTER SNOMED Code(s): 76489558297608948 (2) Cellulitis of right leg Current Visit: Yes Status: Acute Code(s): L03.115 - CELLULITIS OF RIGHT LOWER LIMB SNOMED Code(s): 42956418433711536 (3) Catheter-associated urinary tract infection Current Visit: Yes Status: Acute Code(s): T83.511A - I/I REACT D/T INDWELL ING URETHRAL CATHETER, INIT; N39.0 - URINARY TRACT INFECTION, SITE NOT SPECIFIED SNOMED Code(s): 726664489 Plan: 1patient presenting to the hospital for abdominal pain mostly suprapubic area did have chronic indwelling catheter with features of cystitis seen on CT positive UA concerning for catheter associated UTI likely from enteric gram- negative pathogen 2patient with right lower extremity wound likely a stage III pressure ulcer and secondary cellulitis will need to cover for the gram-negative as well as gram- positive keeping in mind patient custodial resident 3culture have been obtained results will be followed. 4patient will be empirically treated with Rocephin and vancomycin while waiting for the culture to finalize 5local wound care with the dry Aquacel silver dressing change q. 48-hour We will follow on clinical condition and cultures to further adjust medication if needed Thank you for this consultation we will follow the patient along with you Dictation was produced using [employer] dictation software. please excuse any grammatical, word or spelling errors. Time with Patient: Greater than 30
[2025-02-06] MEDS: VANCOMYCIN 1,250 MG in SODIUM CHLORIDE 0.9% 250 ML IVPB ONE (10:57)
--- NOTE | 2025-02-06 11:02 | P.PN ---
Subjective Progress Note Date: 02/06/25 SURGICAL PROGRESS NOTE CHIEF COMPLAINT: Abdominal pain HISTORY OF PRESENT ILLNESS: Patient sitting up in bed. Denies any abdominal pain. Denies any nausea or vomiting. Tolerating diet. Ostomy is functioning. Afebrile. WBC 6.73. Patient on IV antibiotics per ID for right leg wound and UTI. PHYSICAL EXAM: VITAL SIGNS: Reviewed. GENERAL: Well-developed in no acute distress. HEENT: No sclera icterus. Extraocular movements grossly intact. Moist buccal mucosa. Head is atraumatic, normocephalic. ABDOMEN: Soft. Nondistended. Nontender. Ostomy bag full of stool. Stoma unable to be visualized at this time. NEUROLOGIC: Alert and oriented. Cranial nerves II through XII grossly intact. ASSESSMENT: 1. Abdominal pain resolved. Stoma is retracted. No evidence of stomal herniation. Ostomy is functioning. 2. History of stage IV decubitus ulcer with diverting colostomy PLAN: - No surgical intervention planned - Continue regular diet Physician [employer] Systems Administrator note has been reviewed by physician. Signing provider agrees with the documented findings, assessment, and plan of care. Objective - Vital Signs Vital signs: Vital Signs Temp 98.0 F 02/06/25 04:00 Pulse 65 02/06/25 06:37 Resp 18 02/06/25 06:37 BP 131/77 02/06/25 04:00 Pulse Ox 95 02/06/25 04:00 FiO2 Intake & Output 02/05/25 02/06/25 02/06/25 18:59 06:59 18:59 Intake Total 120 240 Output Total 200 Balance 120 40 Weight 68.492 kg 68.5 kg Intake: Oral 120 240 Output: Stool 200 Other: Voiding Method Indwelling Catheter - Labs CBC & Chem 7: 02/06/25 07:18 02/06/25 07:18 Labs: Abnormal Lab Results - Last 24 Hours (Table) 02/05/25 02/06/25 02/06/25 Range/Units 05:44 07:18 07:18 RBC 3.24 L (4.10-5.20) 10*6/uL Hgb 9.6 L (12.0-15.0) g/dL Hct 31.7 L (37.2-46.3) % MCV 97.8 H (80.0-97.0) fL MCHC 30.3 L (32.0-37.0) g/dL MPV 8.8 L (9.5-12.2) fL Chloride 108 H (98-107) mmol/L Calcium 8.3 L (8.4-10.2) mg/dL Free T4 0.34 L (0.78-2.19) ng/dL Microbiology - Last 24 Hours (Table) 02/05/25 11:06 Gram Stain - Preliminary Leg - Right Wound Culture - Preliminary Gram Neg Bacilli Presumptive MRSA 02/04/25 16:34 Blood Culture - Preliminary Blood 02/04/25 17:55 Urine Culture - Preliminary Urine,Voided
--- NOTE | 2025-02-06 11:18 | P.PN ---
Subjective HISTORY OF PRESENT ILLNESS: This is a 79-year-old female with a past medical history significant for spinal cord injury, wheelchair-bound, paroxysmal atrial fibrillation, diverting colostomy, urinary incontinence with diverting urostomy, and large decubitus sacral ulcer. Patient follows in the office with Dr. Hernandez. We have been asked to see the patient in consultation for atrial fibrillation. Patient examined at the bedside in the emergency room. Patient presented to the hospital with a chief complaint of abdominal pain. Patient was found to be in A-fib with RVR. She was started on IV Cardizem. She has converted to sinus mechanism and is maintaining sinus mechanism at the time of examination. She denies any chest pain or pressure. Denies any shortness of breath. DIAGNOSTICS: - EKG reveals A-fib with RVR. Repeat EKG reveals sinus mechanism. - Chest xray consolidation changes seen on CT or less well-appreciated on frontal view. Findings suggest atelectasis on CT imaging. - Laboratory data: WBC 6.53. Hemoglobin 9.1. Platelet count 438. Sodium 137. Potassium 3.5. BUN 14. Creatinine 0.44. Lactic acid 1.3. - Current home cardiac medications include midodrine 10 mg twice daily, Eliquis 5 mg twice daily. - Most recent echocardiogram obtained in September 2024 at the cardiology office revealed ejection fraction 55%, mild MR, mild TR - Cardiac catheterization history: Unknown 02/06/2025 Patient examined this morning at the bedside. Patient denies chest pain or pressure. She denies shortness of breath. Vital signs are stable. She is maintaining sinus mechanism with a heart rate in the 60s. PHYSICAL EXAM: VITAL SIGNS: Reviewed. GENERAL: Well-developed in no acute distress. HEENT: Head is normocephalic. Pupils are equal, round. Sclerae anicteric. Mucous membranes of the mouth are moist. Neck supple. No JVD or thyromegaly LUNGS: Respirations even and unlabored. Lungs essentially clear to auscultation bilaterally. HEART: Regular rate and rhythm. S1 and S2 heard. ABDOMEN: Soft. Nondistended. Nontender. EXTREMITIES: Normal range of motion. No clubbing or cyanosis. Peripheral pulses intact. No lower extremity edema NEUROLOGIC: Awake and alert. Oriented x 3. ASSESSMENT: Abdominal pain Paroxysmal atrial fibrillation with RVR, currently maintaining sinus mechanism History of spinal cord injury, wheelchair-bound History of diverting colostomy History of diverting urostomy History of decubitus sacral ulcer, status post recent surgery at [facility] PLAN: No need to repeat echocardiogram as this was performed in September 2024 Continue anticoagulation with Eliquis Continue metoprolol 25 mg twice a day Patient is stable from a cardiac standpoint with no further inpatient recommen dations We will sign off. Please reconsult if needed. Nurse practitioner note has been reviewed by physician. Signing provider agrees with the documented findings, assessment, and plan of care documented by [employer] WEIGHER as a scribe. Objective - Vital Signs Vital signs: Vital Signs Temp 98.0 F 02/06/25 04:00 Pulse 65 02/06/25 06:37 Resp 18 02/06/25 06:37 BP 131/77 02/06/25 04:00 Pulse Ox 95 02/06/25 04:00 FiO2 Intake & Output 02/05/25 02/06/25 02/06/25 18:59 06:59 18:59 Intake Total 120 240 Output Total 200 Balance 120 40 Weight 68.492 kg 68.5 kg Intake: Oral 120 240 Output: Stool 200 Other: Voiding Method Indwelling Catheter - Labs CBC & Chem 7: 02/06/25 07:18 02/06/25 07:18 Labs: Abnormal Lab Results - Last 24 Hours (Table) 02/05/25 02/06/25 02/06/25 Range/Units 05:44 07:18 07:18 RBC 3.24 L (4.10-5.20) 10*6/uL Hgb 9.6 L (12.0-15.0) g/dL Hct 31.7 L (37.2-46.3) % MCV 97.8 H (80.0-97.0) fL MCHC 30.3 L (32.0-37.0) g/dL MPV 8.8 L (9.5-12.2) fL Chloride 108 H (98-107) mmol/L Calcium 8.3 L (8.4-10.2) mg/dL Free T4 0.34 L (0.78-2.19) ng/dL Microbiology - Last 24 Hours (Table) 02/05/25 11:06 Gram Stain - Preliminary Leg - Right Wound Culture - Preliminary Gram Neg Bacilli Presumptive MRSA 02/04/25 16:34 Blood Culture - Preliminary Blood 02/04/25 17:55 Urine Culture - Preliminary Urine,Voided
[2025-02-06 13:45] VITALS: BMI 24.3
[2025-02-06] MEDS ORDERED: NON FORMULARY DRUG (Alendronate Sodium [Fosamax] 70 MG Tablet) PO SCH (14:43)
--- NOTE | 2025-02-06 20:32 | P.PN ---
Subjective This is a pleasant 79 years old female with past medical history of multiple medical problems. Patient is a known case of spinal cord injury and wheelchair- bound Presents because of constipation with no bowel movement for more than 24 hours associated with abdominal pain but now resolved and found secondary to severe hypothyroidism with TSH elevated more than 100 and T4 low at 0.34, patient is started cautiously on levothyroxine 25 mcg because patient is patient is a known case of paroxysmal atrial fibrillation currently rate controlled in 60s after placed on metoprolol 25 mg twice daily. Also on midodrine 10 mg twice daily. Followed closely by cardiology team. Also infectious disease team following the patient for her UTI associated with Irwin catheter and left leg cellulitis treated for MRSA found on urine culture as well as gram-negative bacilli. Currently covered with IV vancomycin and ceftriaxone. Also continued on Eliquis. Hemoglobin stable at 9.6. CT of the abdomen pelvis showing postsurgical changes of the gastric lumen's and moderate hiatal hernia and left lower quadrant ostomy with ostomy with no bowel obstruction but there is right lower lobe pulmonary infiltrate and mild pleural effusion suspicious for possible pneumonia. Chest x-ray however shows no consolidation. Patient herself breathing okay. No chest pain or dyspnea. She has no abdominal pain, she ate little bit yesterday. Little bowel movement. Objective - Vital Signs Vital signs: Vital Signs Temp 98.5 F 02/06/25 16:00 Pulse 60 02/06/25 16:00 Resp 18 02/06/25 16:00 BP 134/78 02/06/25 16:00 Pulse Ox 97 02/06/25 16:00 FiO2 Intake & Output 02/06/25 02/06/25 02/07/25 06:59 18:59 06:59 Intake Total 120 720 Output Total 1200 Balance 120 -480 Weight 68.5 kg 68.5 kg Intake: Oral 120 720 Output: Urine 1000 Stool 200 Other: Voiding Method Indwelling Catheter Indwelling Catheter - Exam GENERAL: The patient is alert and oriented x3, not in any acute distress. Well developed, well nourished. HEENT: Pupils are round and equally reacting to light. EOMI. No scleral icterus. No conjunctival pallor. Normocephalic, atraumatic. No pharyngeal erythema. No thyromegaly. CARDIOVASCULAR: S1 and S2 present. No murmurs, rubs, or gallops. PULMONARY: Chest is clear to auscultation, no wheezing , no crackles. ABDOMEN: Soft, nontender, nondistended, normoactive bowel sounds. No palpable organomegaly. MUSCULOSKELETAL: No joint swelling or deformity. EXTREMITIES: No cyanosis, clubbing, or pedal edema. NEUROLOGICAL: Gross neurological examination did not reveal any focal deficits. SKIN: No rashes. no petechiae. - Labs CBC & Chem 7: 02/06/25 07:18 02/06/25 07:18 Labs: Abnormal Lab Results - Last 24 Hours (Table) 02/06/25 02/06/25 Range/Units 07:18 07:18 RBC 3.24 L (4.10-5.20) 10*6/uL Hgb 9.6 L (12.0-15.0) g/dL Hct 31.7 L (37.2-46.3) % MCV 97.8 H (80.0-97.0) fL MCHC 30.3 L (32.0-37.0) g/dL MPV 8.8 L (9.5-12.2) fL Chloride 108 H (98-107) mmol/L Calcium 8.3 L (8.4-10.2) mg/dL Microbiology - Last 24 Hours (Table) 02/05/25 11:06 Gram Stain - Preliminary Leg - Right Wound Culture - Preliminary Gram Neg Bacilli Presumptive MRSA 02/04/25 16:34 Blood Culture - Preliminary Blood 02/04/25 17:55 Urine Culture - Preliminary Urine,Voided Assessment and Plan Assessment: Abdominal pain and constipation secondary to hypothyroidism Severe hypothyroidism with high TSH more than 100 and T4 low at 0.34 Paroxysmal atrial fibrillation with rate controlled History of spinal cord injury wheelchair-bound Right leg wound cellulitis Catheter associated UTI. Plan: Continue ceftriaxone IV vancomycin Continue with ID team recommendation On Eliquis On metoprolol and midodrine Started on levothyroxine 25 mcg, this can be increased in 2 weeks with close monitoring Follow-up culture results of the urine or blood. Further recommendation based on the clinical course GI prophylaxis Pepcid DVT prophylaxis Eliquis Prognosis is guarded
[2025-02-07] MEDS: VANCOMYCIN 1,250 MG in SODIUM CHLORIDE 0.9% 250 ML IVPB SCH (01:24)
--- NOTE | 2025-02-07 07:07 | P.PN ---
Subjective Progress Note Date: 02/07/25 Colostomy is functioning. There is no leak around the appliance. She will be observed. Objective - Vital Signs Vital signs: Vital Signs Temp 98.5 F 02/07/25 04:00 Pulse 65 02/07/25 04:00 Resp 16 02/07/25 04:00 BP 133/77 02/07/25 04:00 Pulse Ox 96 02/07/25 04:00 FiO2 Intake & Output 02/06/25 02/07/25 02/07/25 18:59 06:59 18:59 Intake Total 720 240 Output Total 1200 1400 Balance -480 -1160 Weight 68.5 kg 68.5 kg Intake: Oral 720 240 Output: Urine 1000 1100 Stool 200 300 Other: Voiding Method Indwelling Catheter Indwelling Catheter - Labs CBC & Chem 7: 02/06/25 07:18 02/06/25 07:18 Labs: Abnormal Lab Results - Last 24 Hours (Table) 02/06/25 02/06/25 Range/Units 07:18 07:18 RBC 3.24 L (4.10-5.20) 10*6/uL Hgb 9.6 L (12.0-15.0) g/dL Hct 31.7 L (37.2-46.3) % MCV 97.8 H (80.0-97.0) fL MCHC 30.3 L (32.0-37.0) g/dL MPV 8.8 L (9.5-12.2) fL Chloride 108 H (98-107) mmol/L Calcium 8.3 L (8.4-10.2) mg/dL Microbiology - Last 24 Hours (Table) 02/04/25 16:34 Blood Culture - Preliminary Blood 02/04/25 17:55 Urine Culture - Final Urine,Voided Pseudomonas aeruginosa 02/05/25 11:06 Gram Stain - Preliminary Leg - Right Wound Culture - Preliminary Gram Neg Bacilli Presumptive MRSA
[2025-02-07 09:49] LABS: African American GFR (CKD) >90 (>60 ml/min/1.73 sqM); Non-African American GFR(CKD) >90 (>60 ml/min/1.73 sqM)
--- NOTE | 2025-02-07 12:56 | P.PN ---
Subjective This is a pleasant 79 years old female with past medical history of multiple medical problems. Patient is a known case of spinal cord injury and wheelchair- bound Presents because of constipation with no bowel movement for more than 24 hours associated with abdominal pain but now resolved and found secondary to severe hypothyroidism with TSH elevated more than 100 and T4 low at 0.34, patient is started cautiously on levothyroxine 25 mcg because patient is patient is a known case of paroxysmal atrial fibrillation currently rate controlled in 60s after placed on metoprolol 25 mg twice daily. Also on midodrine 10 mg twice daily. Followed closely by cardiology team. Also infectious disease team following the patient for her UTI associated with Irwin catheter and left leg cellulitis treated for MRSA found on urine culture as well as gram-negative bacilli. Currently covered with IV vancomycin and ceftriaxone. Also continued on Eliquis. Hemoglobin stable at 9.6. CT of the abdomen pelvis showing postsurgical changes of the gastric lumen's and moderate hiatal hernia and left lower quadrant ostomy with ostomy with no bowel obstruction but there is right lower lobe pulmonary infiltrate and mild pleural effusion suspicious for possible pneumonia. Chest x-ray however shows no consolidation. Patient herself breathing okay. No chest pain or dyspnea. She has no abdominal pain, she ate little bit yesterday. Little bowel movement. 02/07 Patient denies chest pain or dyspnea Her abdominal pain and constipation are improving Right leg wound with dressing in place, no significant cellulitis in the surrounding area today, she has a small abrasion and superficial ulcer on the left leg as well no cellulitis on the left leg Patient still complains from little dysuria He is hemodynamically stable labs look stable She remains on ceftriaxone and IV vancomycin She remains on Eliquis Review of systems CONSTITUTIONAL: No fever, no malaise, no fatigue. HEENT: No recent visual problems or hearing problems. Denied any sore throat. CARDIOVASCULAR: No orthopnea, PND, no palpitations, no syncope HEMATOLOGICAL: Denies any bleeding or petechiae. GENITOURINARY: Denies any burning micturition, frequency, or urgency. MUSCULOSKELETAL/RHEUMATOLOGICAL: Denies any joint pain, swelling, or any muscle pain. ENDOCRINE: Denies any polyuria or polydipsia. Active Medications Generic Name Dose Route Start Last Admin Trade Name Freq PRN Reason Stop Dose Admin Acetaminophen 650 mg 02/04/25 14:43 Acetaminophen Tab 325 Mg Tab PO Q6H PRN Pain Albuterol/Ipratropium 3 ml 02/04/25 20:00 02/07/25 12:20 Ipratropium-Albuterol 3 Ml Neb INHALATION Not Given RT-TID [facility] Apixaban 5 mg 02/04/25 21:00 02/07/25 09:55 Apixaban 5 Mg Tab PO 5 mg BID@0900,2100 [facility] Administration Protocol Buspirone HCl 5 mg 02/04/25 21:00 02/07/25 12:36 Buspirone Hcl 5 Mg Tab PO 5 mg TID@0900,1300,2100 [facility] Administration Famotidine 40 mg 02/04/25 21:00 02/06/25 22:40 Famotidine 20 Mg Tab PO 40 mg HS@2100 [facility] Administration Ferrous Sulfate 325 mg 02/05/25 09:00 02/07/25 09:55 Ferrous Sulfate 325 Mg Tab PO 325 mg DAILY@0900 [facility] Administration Fluoxetine HCl 40 mg 02/05/25 09:00 02/07/25 09:55 Fluoxetine Hcl 20 Mg Cap PO 40 mg DAILY@0900 [facility] Administration Guaifenesin 200 mg 02/04/25 14:43 Guaifenesin Syrup 100mg/5ml 200 Mg/10 Ml Cup PO Q4H PRN Cough Ceftriaxone Sodium 1 gm/ 50 mls @ 100 mls/hr 02/04/25 16:30 02/07/25 09:56 Sodium Chloride IVPB 100 mls/hr Q24HR [facility] Administration Protocol Vancomycin HCl 1,250 mg/ 250 mls @ 125 mls/hr 02/07/25 00:00 02/07/25 01:24 Sodium Chloride IVPB 125 mls/hr Q16H [facility] Administration Lactobacillus Acidophilus 1 each 02/05/25 09:00 02/07/25 09:55 Lactobacillus Acidophilus/Pect 1 Each Capsule PO 1 each DAILY@0900 [facility] Administration Lactulose 20 gm 02/04/25 14:43 Lactulose 20 Gm/30 Ml Cup PO BID PRN Constipation Levothyroxine Sodium 25 mcg 02/05/25 13:00 02/07/25 06:14 Levothyroxine 25 Mcg Tab PO 25 mcg DAILY@06 [facility] Administration Loratadine 10 mg 02/05/25 09:00 02/07/25 09:55 Loratadine 10 Mg Tab PO 10 mg DAILY@0900 [facility] Administration Metoprolol Tartrate 25 mg 02/05/25 09:15 02/07/25 09:55 Metoprolol Tartrate 25 Mg Tab PO 25 mg BID [facility] Administration Midodrine 10 mg 02/04/25 18:00 02/07/25 09:55 Midodrine 5 Mg Tab PO 10 mg BID@0900,1800 [facility] Administration Mirtazapine 30 mg 02/04/25 21:00 02/06/25 22:40 Mirtazapine 15 Mg Tab PO 30 mg HS@2100 [facility] Administration Miscellaneous Information 1 each 02/08/25 07:00 Vancomycin Trough Due 1 Each Misc MISCELLANE 02/08/25 07:01 ONCE ONE Multivitamins 1 each 02/05/25 09:00 02/07/25 09:55 Multivitamins, Thera 1 Each Tab PO 1 each DAILY@0900 [facility] Administration Naloxone HCl 0.2 mg 02/04/25 14:42 Naloxone 0.4 Mg/Ml 1 Ml Vial IV Q2M PRN Opioid Reversal Nitrofurantoin Macrocrystals 100 mg 02/04/25 21:00 02/07/25 09:55 Nitrofurantoin Monohyd/M-Cryst 100 Mg Cap PO 100 mg BID@0900,2100 [facility] Administration Protocol Oxycodone/Acetaminophen 1 each 02/04/25 15:00 02/07/25 10:24 Oxycodone-Apap 10-325mg 1 Each Tab PO 1 each Q4H [facility] Administration Potassium Chloride 10 meq 02/05/25 09:00 02/07/25 09:55 Potassium Chloride Er 10 Meq Tab.Er.Prt PO 10 meq DAILY@0900 [facility] Administration Objective - Vital Signs Vital signs: Vital Signs Temp 98.5 F 02/07/25 04:00 Pulse 68 02/07/25 08:49 Resp 16 02/07/25 04:00 BP 133/77 02/07/25 04:00 Pulse Ox 96 02/07/25 04:00 FiO2 Intake & Output 02/06/25 02/07/25 02/07/25 18:59 06:59 18:59 Intake Total 720 240 Output Total 1200 1400 225 Balance -480 -1160 -225 Weight 68.5 kg 68.5 kg Intake: Oral 720 240 Output: Urine 1000 1100 225 Uretheral (Irwin) 225 Stool 200 300 Other: Voiding Method Indwelling Catheter Indwelling Catheter - Exam GENERAL: The patient is alert and oriented x3, not in any acute distress. Well developed, well nourished. HEENT: Pupils are round and equally reacting to light. EOMI. No scleral icterus. No conjunctival pallor. Normocephalic, atraumatic. No pharyngeal erythema. No thyromegaly. CARDIOVASCULAR: S1 and S2 present. No murmurs, rubs, or gallops. PULMONARY: Chest is clear to auscultation, no wheezing , no crackles. ABDOMEN: Soft, nontender, nondistended, normoactive bowel sounds. No palpable organomegaly. MUSCULOSKELETAL: No joint swelling or deformity. EXTREMITIES: No cyanosis, clubbing, or pedal edema. NEUROLOGICAL: Gross neurological examination did not reveal any focal deficits. SKIN: No rashes. no petechiae. - Labs CBC & Chem 7: 02/06/25 07:18 02/07/25 08:32 Labs: Abnormal Lab Results - Last 24 Hours (Table) 02/07/25 Range/Units 08:32 Creatinine 0.47 L (0.52-1.04) mg/dL Microbiology - Last 24 Hours (Table) 02/05/25 11:06 Gram Stain - Final Leg - Right Wound Culture - Final Pseudomonas aeruginosa Methicillin resist S. aureus 02/04/25 16:34 Blood Culture - Preliminary Blood 02/04/25 17:55 Urine Culture - Final Urine,Voided Pseudomonas aeruginosa Assessment and Plan Assessment: Abdominal pain and constipation secondary to hypothyroidism Severe hypothyroidism with high TSH more than 100 and T4 low at 0.34 Paroxysmal atrial fibrillation with rate controlled History of spinal cord injury wheelchair-bound Right leg wound cellulitis Catheter associated UTI. Plan: Continue ceftriaxone IV vancomycin Continue with ID team recommendation On Eliquis On metoprolol and midodrine Started on levothyroxine 25 mcg, this can be increased in 2 weeks with close monitoring Follow-up culture results of the urine or blood. Further recommendation based on the clinical course GI prophylaxis Pepcid DVT prophylaxis Eliquis Prognosis is guarded
--- NOTE | 2025-02-07 14:42 | P.PN ---
Subjective Progress Note Date: 02/06/25 Principal diagnosis: Reason for follow-up is right lower extremity infected wound Patient is 79-year-old female with a past medical history significant for atrial fibrillation sepsis hypertension bladder and colon cancer history of stage IV sacral pressure ulcer for the patient did have a diverting colostomy in April 2024, now present to the hospital with abdominal pain and has a wound to the right lower leg with concern for infection prompting this consultation. On today's evaluation that is 02/06/2025, the patient continues to be afebrile, the patient is on room air and breathing comfortably, the Pt denies having any chest pain or cough, the patient denies having any abdominal pain no vomiting or any diarrhea has been reported by the nursing staff Patient white count 6.73, creatinine 0.52 local culture growing gram-negative and present MRSA Objective - Vital Signs Vital signs: Vital Signs Temp 98.5 F 02/06/25 16:00 Pulse 60 02/06/25 16:00 Resp 18 02/06/25 16:00 BP 134/78 02/06/25 16:00 Pulse Ox 97 02/06/25 16:00 FiO2 Intake & Output 02/06/25 02/06/25 02/07/25 06:59 18:59 06:59 Intake Total 120 720 Output Total 1200 Balance 120 -480 Weight 68.5 kg 68.5 kg Intake: Oral 120 720 Output: Urine 1000 Stool 200 Other: Voiding Method Indwelling Catheter Indwelling Catheter - Exam GENERAL DESCRIPTION: An elderly female lying in bed in no distress RESPIRATORY SYSTEM: Unlabored breathing , decreased breath sounds at bases HEART: S1 S2 regular rate and rhythm , ABDOMEN: Soft , no tenderness EXTREMITIES: Right leg wound is currently dressed - Labs CBC & Chem 7: 02/06/25 07:18 02/07/25 08:32 Labs: Abnormal Lab Results - Last 24 Hours (Table) 02/06/25 02/06/25 Range/Units 07:18 07:18 RBC 3.24 L (4.10-5.20) 10*6/uL Hgb 9.6 L (12.0-15.0) g/dL Hct 31.7 L (37.2-46.3) % MCV 97.8 H (80.0-97.0) fL MCHC 30.3 L (32.0-37.0) g/dL MPV 8.8 L (9.5-12.2) fL Chloride 108 H (98-107) mmol/L Calcium 8.3 L (8.4-10.2) mg/dL Microbiology - Last 24 Hours (Table) 02/05/25 11:06 Gram Stain - Preliminary Leg - Right Wound Culture - Preliminary Gram Neg Bacilli Presumptive MRSA 02/04/25 16:34 Blood Culture - Preliminary Blood 02/04/25 17:55 Urine Culture - Preliminary Urine,Voided Assessment and Plan (1) Leg wound, right Current Visit: Yes Status: Acute Code(s): S81.801A - UNSPECIFIED OPEN WOUND, RIGHT LOWER LEG, INITIAL ENCOUNTER SNOMED Code(s): 05872997724131680 (2) Cellulitis of right leg Current Visit: Yes Status: Acute Code(s): L03.115 - CELLULITIS OF RIGHT LOWER LIMB SNOMED Code(s): 88559792486472269 (3) Catheter-associated urinary tract infection Current Visit: Yes Status: Acute Code(s): T83.511A - I/I REACT D/T INDWELLING URETHRAL CATHETER, INIT; N39.0 - URINARY TRACT INFECTION, SITE NOT SPECIFIED SNOMED Code(s): 720602796 Plan: 1patient presenting to the hospital for abdominal pain mostly suprapubic area did have chronic indwelling catheter with features of cystitis seen on CT positive UA concerning for catheter associated UTI likely from enteric gram- negative pathogen 2patient with right lower extremity wound likely a stage III pressure ulcer and secondary cellulitis will need to cover for the gram-negative as well as gram- positive keeping in mind patient care home resident 3culture have been obtained results which is currently growing present MRSA and gram-negative 4patient will be empirically treated with Rocephin and vancomycin while waiting for the culture to finalize 5local wound care with the dry Aquacel silver dressing change q. 48-hour Question concern answered Dictation was produced using [employer] dictation software. please excuse any grammatical, word or spelling errors. Time with Patient: Less than 30
--- NOTE | 2025-02-07 14:43 | P.PN ---
Subjective Progress Note Date: 02/07/25 Principal diagnosis: Reason for follow-up is right lower extremity infected wound Patient is 79-year-old female with a past medical history significant for atrial fibrillation sepsis hypertension bladder and colon cancer history of stage IV sacral pressure ulcer for the patient did have a diverting colostomy in April 2024, now present to the hospital with abdominal pain and has a wound to the right lower leg with concern for infection prompting this consultation. On today's evaluation that is 02/08/2024, patient did have a temperature of 97.6 F this morning and denies having any chills, patient is on room air and breathing comfortably no chest pain or cough, the patient did not have any nausea vomiting abdominal pain or any diarrhea. Patient did have a creatinine 0.47 no CBC was done today local culture growing Pseudomonas and MRSA Objective - Vital Signs Vital signs: Vital Signs Temp 97.6 F 02/07/25 08:45 Pulse 68 02/07/25 08:49 Resp 16 02/07/25 08:45 BP 107/66 02/07/25 08:45 Pulse Ox 94 L 02/07/25 08:45 FiO2 Intake & Output 02/06/25 02/07/25 02/07/25 18:59 06:59 18:59 Intake Total 720 240 Output Total 1200 1400 750 Balance -480 -1160 -750 Weight 68.5 kg 68.5 kg Intake: Oral 720 240 Output: Urine 1000 1100 450 Uretheral (Irwin) 225 Stool 200 300 300 Other: Voiding Method Indwelling Catheter Indwelling Catheter Indwelling Catheter - Exam GENERAL DESCRIPTION: An elderly female lying in bed in no distress RESPIRATORY SYSTEM: Unlabored breathing , decreased breath sounds at bases HEART: S1 S2 regular rate and rhythm , ABDOMEN: Soft , no tenderness EXTREMITIES: Right leg wound is currently dressed - Labs CBC & Chem 7: 02/06/25 07:18 02/07/25 08:32 Labs: Abnormal Lab Results - Last 24 Hours (Table) 02/07/25 Range/Units 08:32 Creatinine 0.47 L (0.52-1.04) mg/dL Microbiology - Last 24 Hours (Table) 02/05/25 11:06 Gram Stain - Final Leg - Right Wound Culture - Final Pseudomonas aeruginosa Methicillin resist S. aureus 02/04/25 16:34 Blood Culture - Preliminary Blood 02/04/25 17:55 Urine Culture - Final Urine,Voided Pseudomonas aeruginosa Assessment and Plan (1) Leg wound, right Current Visit: Yes Status: Acute Code(s): S81.801A - UNSPECIFIED OPEN WOUND, RIGHT LOWER LEG, INITIAL ENCOUNTER SNOMED Code(s): 82220488649199860 (2) Cellulitis of right leg Current Visit: Yes Status: Acute Code(s): L03.115 - CELLULITIS OF RIGHT LOWER LIMB SNOMED Code(s): 40513588015483753 (3) Catheter-associated urinary tract infection Current Visit: Yes Status: Acute Code(s): T83.511A - I/I REACT D/T INDWELLING URETHRAL CATHETER, INIT; N39.0 - URINARY TRACT INFECTION, SITE NOT SPECIFIED SNOMED Code(s): 995165394 Plan: 1patient presenting to the hospital for abdominal pain mostly suprapubic area d id have chronic indwelling catheter with features of cystitis seen on CT positive UA concerning for catheter associated UTI likely from enteric gram- negative pathogen 2patient with right lower extremity wound likely a stage III pressure ulcer and secondary cellulitis will need to cover for the gram-negative as well as gram- positive keeping in mind patient [facility] resident 3culture have been obtained results which is currently growing present MRSA and Pseudomonas aeruginosa, urine is also growing Pseudomonas 4patient continuelocal wound care with the dry Aquacel silver dressing change q. 48-hour 5patient will be treated with vancomycin however discontinue Rocephin start the patient cefepime to cover for the Pseudomonas Dictation was produced using [employer] dictation software. please excuse any grammatical, word or spelling errors. Time with Patient: Less than 30
[2025-02-07] MEDS: CEFEPIME 2 GM in SODIUM CHLORIDE 0.9% 100 ML IVPB SCH ×2 (18:46→18:51)
[2025-02-08 01:53] LABS: Basophils # (A) 0.08 10*3/uL (0.00-0.10); Basophils % (A) 0.9 %; Eosinophils % (A) 2.3 %; HCT 29.1 % (37.2-46.3); HGB 9.3 g/dL (12.0-15.0); Lymphocytes # (A) 1.79 10*3/uL (0.90-5.00); Lymphocytes % (A) 20.7 %; MCH 31.5 pg (27.0-32.0); MCV 98.6 fL (80.0-97.0); Mean Platelet Volume 8.6 fL (9.5-12.2); Monocytes # (A) 0.49 10*3/uL (0.20-1.00); Monocytes % (A) 5.7 %; Neutrophils # (A) 6.06 10*3/uL (1.80-7.70); Neutrophils % (A) 70.1 %; Platelet Count 371 10*3/uL (140-440); RBC 2.95 10*6/uL (4.10-5.20); RDW 15.3 % (11.5-14.5); WBC 8.65 10*3/uL (4.50-10.00)
[2025-02-08 07:36] LABS: Basophils # (A) 0.06 10*3/uL (0.00-0.10); Basophils % (A) 0.8 %; Eosinophils # (A) 0.17 10*3/uL (0.04-0.35); Eosinophils % (A) 2.3 %; HCT 31.3 % (37.2-46.3); HGB 9.5 g/dL (12.0-15.0); Lymphocytes % (A) 24.5 %; MCH 29.9 pg (27.0-32.0); MCHC 30.4 g/dL (32.0-37.0); MCV 98.4 fL (80.0-97.0); Mean Platelet Volume 8.8 fL (9.5-12.2); Monocytes # (A) 0.41 10*3/uL (0.20-1.00); Monocytes % (A) 5.6 %; Neutrophils # (A) 4.87 10*3/uL (1.80-7.70); Neutrophils % (A) 66.4 %; Platelet Count 390 10*3/uL (140-440); RBC 3.18 10*6/uL (4.10-5.20); RDW 15.4 % (11.5-14.5); WBC 7.34 10*3/uL (4.50-10.00)
[2025-02-08 07:56] LABS: African American GFR (CKD) >90 (>60 ml/min/1.73 sqM); Anion Gap 5 mmol/L; Blood Urea Nitrogen 15 mg/dL (7-17); Calcium 8.5 mg/dL (8.4-10.2); Carbon Dioxide 23 mmol/L (22-30); Chloride 108 mmol/L (98-107); Glucose 75 mg/dL (74-99); Non-African American GFR(CKD) 86 (>60 ml/min/1.73 sqM); Potassium 4.4 mmol/L (3.5-5.1); Sodium 136 mmol/L (137-145)
[2025-02-08] MEDS: VANCOMYCIN TROUGH DUE 1 EACH MISC MISCELLANE ONE (08:37)
--- NOTE | 2025-02-08 09:41 | P.PN ---
Subjective Progress Note Date: 02/08/25 There are no acute changes. Colostomy is functioning. The patient will be observed. Objective - Vital Signs Vital signs: Vital Signs Temp 97.5 F L 02/08/25 08:00 Pulse 69 02/08/25 08:00 Resp 14 02/08/25 08:00 BP 90/55 02/08/25 08:00 Pulse Ox 95 02/08/25 08:00 FiO2 Intake & Output 02/07/25 02/08/25 02/08/25 18:59 06:59 18:59 Intake Total 0 360 Output Total 1050 425 Balance -1050 -65 Weight 68 kg Intake: Oral 0 360 Output: Urine 450 400 Uretheral (Irwin) 225 Stool 600 25 Other: Voiding Method Indwelling Catheter Indwelling Catheter - Labs CBC & Chem 7: 02/08/25 07:02 02/08/25 07:02 Labs: Abnormal Lab Results - Last 24 Hours (Table) 02/07/25 02/08/25 02/08/25 Range/Units 08:32 01:42 07:02 RBC 2.95 L (4.10-5.20) 10*6/uL Hgb 9.3 L (12.0-15.0) g/dL Hct 29.1 L (37.2-46.3) % MCV 98.6 H (80.0-97.0) fL MCHC (32.0-37.0) g/dL MPV 8.6 L (9.5-12.2) fL Sodium 136 L (137-145) mmol/L Chloride 108 H (98-107) mmol/L Creatinine 0.47 L (0.52-1.04) mg/dL 02/08/25 Range/Units 07:02 RBC 3.18 L (4.10-5.20) 10*6/uL Hgb 9.5 L (12.0-15.0) g/dL Hct 31.3 L (37.2-46.3) % MCV 98.4 H (80.0-97.0) fL MCHC 30.4 L (32.0-37.0) g/dL MPV 8.8 L (9.5-12.2) fL Sodium (137-145) mmol/L Chloride (98-107) mmol/L Creatinine (0.52-1.04) mg/dL Microbiology - Last 24 Hours (Table) 02/04/25 16:34 Blood Culture - Preliminary Blood 02/05/25 11:06 Anaerobic Culture - Preliminary Leg - Right Proteus mirabilis 02/05/25 11:06 Gram Stain - Final Leg - Right Wound Culture - Final Pseudomonas aeruginosa Methicillin resist S. aureus
--- NOTE | 2025-02-08 14:02 | P.PN ---
Subjective This is a pleasant 79 years old female with past medical history of multiple medical problems. Patient is a known case of spinal cord injury and wheelchair- bound Presents because of constipation with no bowel movement for more than 24 hours associated with abdominal pain but now resolved and found secondary to severe hypothyroidism with TSH elevated more than 100 and T4 low at 0.34, patient is started cautiously on levothyroxine 25 mcg because patient is patient is a known case of paroxysmal atrial fibrillation currently rate controlled in 60s after placed on metoprolol 25 mg twice daily. Also on midodrine 10 mg twice daily. Followed closely by cardiology team. Also infectious disease team following the patient for her UTI associated with Irwin catheter and left leg cellulitis treated for MRSA found on urine culture as well as gram-negative bacilli. Currently covered with IV vancomycin and ceftriaxone. Also continued on Eliquis. Hemoglobin stable at 9.6. CT of the abdomen pelvis showing postsurgical changes of the gastric lumen's and moderate hiatal hernia and left lower quadrant ostomy with ostomy with no bowel obstruction but there is right lower lobe pulmonary infiltrate and mild pleural effusion suspicious for possible pneumonia. Chest x-ray however shows no consolidation. Patient herself breathing okay. No chest pain or dyspnea. She has no abdominal pain, she ate little bit yesterday. Little bowel movement. 02/07 Patient denies chest pain or dyspnea Her abdominal pain and constipation are improving Right leg wound with dressing in place, no significant cellulitis in the surrounding area today, she has a small abrasion and superficial ulcer on the left leg as well no cellulitis on the left leg Patient still complains from little dysuria He is hemodynamically stable labs look stable She remains on ceftriaxone and IV vancomycin She remains on Eliquis 02/08 Patient up and alert. Abdominal pain told after she was started on small dose of levothyroxine We will check labs tomorrow She is complaining from pain in her left side of the body from the waist down. She does not look in distress. She has little bowel movement is good No specific urinary complaints she remains on Irwin catheter She remains on IV vancomycin and ceftriaxone and wound cultures are growing Proteus MRSA and Pseudomonas Objective - Vital Signs Vital signs: Vital Signs Temp 97.6 F 02/08/25 12:00 Pulse 76 02/08/25 13:01 Resp 16 02/08/25 12:00 BP 127/56 02/08/25 12:00 Pulse Ox 95 06/15/25 12:00 FiO2 Intake & Output 02/07/25 02/08/25 02/08/25 18:59 06:59 18:59 Intake Total 0 360 118 Output Total 1050 037 675 Balance -1050 -65 -597 Weight 68 kg Intake: Oral 0 360 118 Output: Urine 450 400 375 Uretheral (Irwin) 225 Stool 600 25 Urine/Stool Mix 300 Other: Voiding Method Indwelling Catheter Indwelling Catheter Indwelling Catheter # Bowel Movements 2 - Exam GENERAL: The patient is alert and oriented x3, not in any acute distress. Well developed, well nourished. HEENT: Pupils are round and equally reacting to light. EOMI. No scleral icterus. No conjunctival pallor. Normocephalic, atraumatic. No pharyngeal erythema. No t hyromegaly. CARDIOVASCULAR: S1 and S2 present. No murmurs, rubs, or gallops. PULMONARY: Chest is clear to auscultation, no wheezing , no crackles. ABDOMEN: Soft, nontender, nondistended, normoactive bowel sounds. No palpable organomegaly. MUSCULOSKELETAL: No joint swelling or deformity. EXTREMITIES: No cyanosis, clubbing, or pedal edema. NEUROLOGICAL: Gross neurological examination did not reveal any focal deficits. SKIN: No rashes. no petechiae. - Labs CBC & Chem 7: 02/08/25 07:02 02/08/25 07:02 Labs: Abnormal Lab Results - Last 24 Hours (Table) 02/08/25 02/08/25 02/08/25 Range/Units 01:42 07:02 07:02 RBC 2.95 L 3.18 L (4.10-5.20) 10*6/uL Hgb 9.3 L 9.5 L (12.0-15.0) g/dL Hct 29.1 L 31.3 L (37.2-46.3) % MCV 98.6 H 98.4 H (80.0-97.0) fL MCHC 30.4 L (32.0-37.0) g/dL MPV 8.6 L 8.8 L (9.5-12.2) fL Sodium 136 L (137-145) mmol/L Chloride 108 H (98-107) mmol/L Microbiology - Last 24 Hours (Table) 02/05/25 11:06 Anaerobic Culture - Final Leg - Right Proteus mirabilis 02/04/25 16:34 Blood Culture - Preliminary Blood Assessment and Plan Assessment: Abdominal pain and constipation secondary to hypothyroidism Severe hypothyroidism with high TSH more than 100 and T4 low at 0.34 Paroxysmal atrial fibrillation with rate controlled History of spinal cord injury wheelchair-bound Right leg wound cellulitis Catheter associated UTI. Plan: Continue ceftriaxone IV vancomycin Continue with ID team recommendation On Eliquis On metoprolol and midodrine Started on levothyroxine 25 mcg, this can be increased in 4 weeks with close monitoring Follow-up culture results of the urine or blood. Further recommendation based on the clinical course GI prophylaxis Pepcid DVT prophylaxis Eliquis Prognosis is guarded
[2025-02-08 15:56] LABS: Appearance,Urine Clear (Clear); Bilirubin,Urine Negative (Negative); Blood,Urine Small (Negative); Color,Urine Yellow; Glucose,Urine (UA) Negative (Negative); Ketones,Urine Negative (Negative); Leukocyte Esterase,Urine Small (Negative); Mucus,Urine Rare /hpf; Nitrite,Urine Negative (Negative); PH, Urine 5.5 (5.0-8.0); Protein,Urine Negative (Negative); RBC,Urine 14 /hpf (0-5); Specific Gravity,Urine 1.008 (1.001-1.035); Urobilinogen,Urine <2.0 mg/dL (<2.0); WBC,Urine 10 /hpf (0-5)
[2025-02-09] MEDS: VANCOMYCIN 1,500 MG in SODIUM CHLORIDE 0.9% 500 ML 500 ML IVPB SCH (00:04)
[2025-02-09 07:07] LABS: African American GFR (CKD) >90 (>60 ml/min/1.73 sqM); Non-African American GFR(CKD) 89 (>60 ml/min/1.73 sqM)
--- NOTE | 2025-02-09 10:58 | P.PN ---
Subjective Progress Note Date: 02/09/25 SURGICAL PROGRESS NOTE CHIEF COMPLAINT: Abdominal pain HISTORY OF PRESENT ILLNESS: Patient sitting up in bed. She is eating breakfast. Her ostomy is functioning. Denies any abdominal pain. She reports her ostomy appliance was changed. Afebrile PHYSICAL EXAM: VITAL SIGNS: Reviewed. GENERAL: Well-developed in no acute distress. HEENT: No sclera icterus. Extraocular movements grossly intact. Moist buccal mucosa. Head is atraumatic, normocephalic. ABDOMEN: Soft. Nondistended. Nontender. Ostomy bag with stool. Stoma covered with stool. NEUROLOGIC: Alert and oriented. Cranial nerves II through XII grossly intact. ASSESSMENT: 1. Abdominal pain resolved. Stoma is retracted. No evidence of stomal herniation. Ostomy is functioning. 2. History of stage IV decubitus ulcer with diverting colostomy PLAN: - No surgical intervention planned - Continue regular diet Physician Second Miller note has been reviewed by physician. Signing provider agrees with the documented findings, assessment, and plan of care. Objective - Vital Signs Vital signs: Vital Signs Temp 97.2 F L 02/09/25 08:38 Pulse 74 02/09/25 08:40 Resp 18 02/09/25 08:40 BP 93/57 02/09/25 08:38 Pulse Ox 93 L 02/09/25 08:38 FiO2 Intake & Output 02/08/25 02/09/25 02/09/25 18:59 06:59 18:59 Intake Total 358 120 Output Total 900 1350 Balance -542 -1230 Weight 68.5 kg Intake: Oral 358 120 Output: Urine 575 1200 Stool 25 150 Urine/Stool Mix 300 Other: Voiding Method Indwelling Catheter Indwelling Catheter Indwelling Catheter # Bowel Movements 2 - Labs CBC & Chem 7: 02/08/25 07:02 02/09/25 06:30 Labs: Abnormal Lab Results - Last 24 Hours (Table) 02/08/25 Range/Units 06:00 Urine Blood Small H (Negative) Ur Leukocyte Esterase Small H (Negative) Urine RBC 14 H (0-5) /hpf Urine WBC 10 H (0-5) /hpf Urine Mucus Rare H (None) /hpf Microbiology - Last 24 Hours (Table) 02/05/25 11:06 Anaerobic Culture - Final Leg - Right Proteus mirabilis
--- NOTE | 2025-02-09 11:22 | P.PN ---
Subjective Progress Note Date: 02/08/25 Principal diagnosis: Reason for follow-up is right lower extremity infected wound Patient is 79-year-old female with a past medical history significant for atrial fibrillation sepsis hypertension bladder and colon cancer history of stage IV sacral pressure ulcer for the patient did have a diverting colostomy in April 2024, now present to the hospital with abdominal pain and has a wound to the right lower leg with concern for infection prompting this consultation. On today's evaluation that is 02/08/2025, Patient is afebrile patient is currently on room air and denies having any shortness of breath, the patient denies any chest pain or cough, the patient denies any nausea vomiting did not have any abdominal pain and no diarrhea. Patient white count 7.34, creatinine 0.59 Vanco level is 14.1 Objective - Vital Signs Vital signs: Vital Signs Temp 97.5 F L 02/08/25 08:00 Pulse 69 02/08/25 08:00 Resp 14 02/08/25 08:00 BP 90/55 02/08/25 08:00 Pulse Ox 95 02/08/25 08:00 FiO2 Intake & Output 02/07/25 02/08/25 02/08/25 18:59 06:59 18:59 Intake Total 0 360 Output Total 1050 425 Balance -1050 -65 Weight 68 kg Intake: Oral 0 360 Output: Urine 450 400 Uretheral (Irwin) 225 Stool 600 25 Other: Voiding Method Indwelling Catheter Indwelling Catheter - Exam GENERAL DESCRIPTION: An elderly female lying in bed in no distress RESPIRATORY SYSTEM: Unlabored breathing , decreased breath sounds at bases HEART: S1 S2 regular rate and rhythm , ABDOMEN: Soft , no tenderness EXTREMITIES: Right leg wound is currently dressed - Labs CBC & Chem 7: 02/08/25 07:02 02/08/25 07:02 Labs: Abnormal Lab Results - Last 24 Hours (Table) 02/08/25 02/08/25 02/08/25 Range/Units 01:42 07:02 07:02 RBC 2.95 L 3.18 L (4.10-5.20) 10*6/uL Hgb 9.3 L 9.5 L (12.0-15.0) g/dL Hct 29.1 L 31.3 L (37.2-46.3) % MCV 98.6 H 98.4 H (80.0-97.0) fL MCHC 30.4 L (32.0-37.0) g/dL MPV 8.6 L 8.8 L (9.5-12.2) fL Sodium 136 L (137-145) mmol/L Chloride 108 H (98-107) mmol/L Microbiology - Last 24 Hours (Table) 02/04/25 16:34 Blood Culture - Preliminary Blood 02/05/25 11:06 Anaerobic Culture - Preliminary Leg - Right Proteus mirabilis 02/05/25 11:06 Gram Stain - Final Leg - Right Wound Culture - Final Pseudomonas aeruginosa Methicillin resist S. aureus Assessment and Plan (1) Leg wound, right Current Visit: Yes Status: Acute Code(s): S81.801A - UNSPECIFIED OPEN WOUND, RIGHT LOWER LEG, INITIAL ENCOUNTER SNOMED Code(s): 28632684705328977 (2) Cellulitis of right leg Current Visit: Yes Status: Acute Code(s): L03.115 - CELLULITIS OF RIGHT LOWER LIMB SNOMED Code(s): 10617112232579784 (3) Catheter-associated urinary tract infection Current Visit: Yes Status: Acute Code(s): T83.511A - I/I REACT D/T INDWELLING URETHRAL CATHETER, INIT; N39.0 - URINARY TRACT INFECTION, SITE NOT SPECIFIED SNOMED Code(s): 638023850 Plan: 1patient presenting to the hospital for abdominal pain mostly suprapubic area did have chronic indwelling catheter with features of cystitis seen on CT positive UA concerning for catheter associated UTI likely from enteric gram- negative pathogen 2patient with right lower extremity wound likely a stage III pressure ulcer and secondary cellulitis will need to cover for the gram-negative as well as gram- positive keeping in mind patient longterm resident 3culture have been obtained results which is currently growing present MRSA and Pseudomonas aeruginosa, urine is also growing Pseudomonas 4patient continuelocal wound care with the dry Aquacel silver dressing change q. 48-hour 5patient afebrile patient to continue vancomycin pharmacy to dose and cefepime, and monitor clinical course closely Dictation was produced using [employer] dictation software. please excuse any grammatical, word or spelling errors.
[2025-02-10 02:50] VITALS: RESP 16
--- NOTE | 2025-02-10 05:22 | P.PN ---
Subjective Progress Note Date: 02/09/25 This is a pleasant 79 years old female with past medical history of multiple medical problems. Patient is a known case of spinal cord injury and wheelchair- bound Presents because of constipation with no bowel movement for more than 24 hours associated with abdominal pain but now resolved and found secondary to severe hypothyroidism with TSH elevated more than 100 and T4 low at 0.34, patient is started cautiously on levothyroxine 25 mcg because patient is patient is a known case of paroxysmal atrial fibrillation currently rate controlled in 60s after placed on metoprolol 25 mg twice daily. Also on midodrine 10 mg twice daily. Followed closely by cardiology team. Also infectious disease team following the patient for her UTI associated with Irwin catheter and left leg cellulitis treated for MRSA found on urine culture as well as gram-negative bacilli. Currently covered with IV vancomycin and ceftriaxone. Also continued on Eliquis. Hemoglobin stable at 9.6. CT of the abdomen pelvis showing postsurgical changes of the gastric lumen's and moderate hiatal hernia and left lower quadrant ostomy with ostomy with no bowel obstruction but there is right lower lobe pulmonary infiltrate and mild pleural effusion suspicious for possible pneumonia. Chest x-ray however shows no consolidation. Patient herself breathing okay. No chest pain or dyspnea. She has no abdominal pain, she ate little bit yesterday. Little bowel movement. 02/07 Patient denies chest pain or dyspnea Her abdominal pain and constipation are improving Right leg wound with dressing in place, no significant cellulitis in the surrounding area today, she has a small abrasion and superficial ulcer on the left leg as well no cellulitis on the left leg Patient still complains from little dysuria He is hemodynamically stable labs look stable She remains on ceftriaxone and IV vancomycin She remains on Eliquis 02/08 Patient up and alert. Abdominal pain told after she was started on small dose of levothyroxine We will check labs tomorrow She is complaining from pain in her left side of the body from the waist down. She does not look in distress. She has little bowel movement is good No specific urinary complaints she remains on Irwin catheter She remains on IV vancomycin and ceftriaxone and wound cultures are growing Proteus MRSA and Pseudomonas 02/09/2025 Patient is seen in follow-up today currently sitting up in bed awake, asking when she can go home. Patient continues on IV antibiotics with infectious di sease following awaiting to discuss further regarding discharge antibiotics. Patient will be returning to [facility] on discharge with continued wound care if patient is requiring IV antibiotics or able to return to [facility] on oral antibiotic therapy. Patient is afebrile with no reports of chest pain or shortness of breath. Patient denies nausea or vomiting and is tolerating diet. Review of systems: Constitutional: No reports of fatigue, fever, or chills Cardiovascular: No reports of chest pain or palpitations Respiratory: No reports of shortness of breath or cough GI: No reports of nausea, vomiting, or diarrhea : No reports of dysuria or retention Neurovascular: reports of continued generalized weakness and some right lower extremity pain All medications have been reviewed Physical exam: GENERAL: The patient is alert and oriented x3, not in any acute distress. Well developed, elderly appearing, thin built HEENT: Pupils are round and equally reacting to light. EOMI. No scleral icterus. No conjunctival pallor. Normocephalic, atraumatic. No pharyngeal erythema. No thyromegaly. CARDIOVASCULAR: S1 and S2 muffled PULMONARY: Chest is clear to auscultation, no wheezing , no crackles. ABDOMEN: Soft, nontender, nondistended, normoactive bowel sounds. No palpable organomegaly. MUSCULOSKELETAL: No joint swelling or deformity. EXTREMITIES: No cyanosis, clubbing, or pedal edema. NEUROLOGICAL: Gross neurological examination did not reveal any focal deficits. Diffusely weak SKIN: No rashes. no petechiae. Assessment: Abdominal pain and constipation secondary to hypothyroidism Severe hypothyroidism with high TSH more than 100 and T4 low at 0.34 Paroxysmal atrial fibrillation currently rate controlled History of spinal cord injury wheelchair-bound Right leg wound cellulitis, present on admission with culture showing Proteus Mirabellis, Pseudomonas and MRSA Catheter associated UTI. Present on admission with urine culture finalizing showing Pseudomonas GI prophylaxis DVT prophylaxis Full code Plan: Patient is continued on antibiotics in the form of ceftriaxone and vancomycin and will discuss further with infectious disease regarding discharge planning. Plan is to return to [facility] and unsure patient will require IV antibiotics. Most likely transition to oral antibiotics on discharge Continue local wound care On Eliquis On metoprolol and midodrine Started on levothyroxine 25 mcg, this can be increased in 4 weeks with close monitoring Case management following and plan will be for return to [facility] and will discuss further with other consultations regarding discharge planning Possible discharge in the next 24 to 48 hours Due to multiple complex medical issues, overall prognosis is guarded The impression and plan of care has been dictated by Liliya Florez, Nurse Practitioner as directed. Dr. Sameer MD I have performed a history and examination and MDM of this patient, discussed the same with the dictator, and agree with the dictator's assessment and plan as written ,documented as a scribe. Based on total visit time, I have performed more than 50% of the visit. Objective - Vital Signs Vital signs: Vital Signs Temp 97.4 F L 02/10/25 02:47 Pulse 66 02/10/25 02:47 Resp 16 02/10/25 02:47 BP 103/62 02/10/25 02:47 Pulse Ox 94 L 02/10/25 02:47 FiO2 Intake & Output 02/09/25 02/09/25 02/10/25 06:59 18:59 06:59 Intake Total 120 100 Output Total 1350 1000 650 Balance -1230 -1000 -550 Weight 68.5 kg 68.5 kg 68.5 kg Intake: Oral 120 100 Output: Urine 1200 1000 500 Stool 150 150 Other: Voiding Method Indwelling Catheter Indwelling Catheter Indwelling Catheter - Labs CBC & Chem 7: 02/08/25 07:02 02/09/25 06:30 Labs: Microbiology - Last 24 Hours (Table) 02/04/25 16:34 Blood Culture - Final Blood
[2025-02-10 07:22] LABS: Basophils # (A) 0.07 10*3/uL (0.00-0.10); Basophils % (A) 0.9 %; Eosinophils # (A) 0.26 10*3/uL (0.04-0.35); Eosinophils % (A) 3.2 %; HCT 30.9 % (37.2-46.3); HGB 9.5 g/dL (12.0-15.0); Lymphocytes # (A) 1.85 10*3/uL (0.90-5.00); Lymphocytes % (A) 22.6 %; MCH 30.1 pg (27.0-32.0); MCHC 30.7 g/dL (32.0-37.0); MCV 97.8 fL (80.0-97.0); Monocytes # (A) 0.57 10*3/uL (0.20-1.00); Neutrophils # (A) 5.38 10*3/uL (1.80-7.70); Neutrophils % (A) 65.8 %; Platelet Count 419 10*3/uL (140-440); RBC 3.16 10*6/uL (4.10-5.20); RDW 15.2 % (11.5-14.5); WBC 8.17 10*3/uL (4.50-10.00)
[2025-02-10 07:35] LABS: African American GFR (CKD) >90 (>60 ml/min/1.73 sqM); Anion Gap 5 mmol/L; Blood Urea Nitrogen 15 mg/dL (7-17); Calcium 8.3 mg/dL (8.4-10.2); Carbon Dioxide 23 mmol/L (22-30); Chloride 109 mmol/L (98-107); Glucose 85 mg/dL (74-99); Magnesium 1.9 mg/dL (1.6-2.3); Non-African American GFR(CKD) 88 (>60 ml/min/1.73 sqM); Potassium 4.4 mmol/L (3.5-5.1); Sodium 137 mmol/L (137-145)
--- NOTE | 2025-02-10 11:10 | P.PN ---
Subjective Progress Note Date: 02/10/25 SURGICAL PROGRESS NOTE CHIEF COMPLAINT: Abdominal pain HISTORY OF PRESENT ILLNESS: No new complaints. Ostomy functioning. Tolerating diet. PHYSICAL EXAM: VITAL SIGNS: Reviewed. GENERAL: Well-developed in no acute distress. HEENT: No sclera icterus. Extraocular movements grossly intact. Moist buccal mucosa. Head is atraumatic, normocephalic. ABDOMEN: Soft. Nondistended. Nontender. Ostomy bag with stool. Stoma covered with stool. NEUROLOGIC: Alert and oriented. Cranial nerves II through XII grossly intact. ASSESSMENT: 1. Abdominal pain resolved. Stoma is retracted. No evidence of stomal herniation. Ostomy is functioning. 2. History of stage IV decubitus ulcer with diverting colostomy PLAN: - No surgical intervention planned - Continue regular diet Physician Software Sales Manager note has been reviewed by physician. Signing provider agrees with the documented findings, assessment, and plan of care. Objective - Vital Signs Vital signs: Vital Signs Temp 98.4 F 02/10/25 08:56 Pulse 74 02/10/25 09:23 Resp 16 02/10/25 08:56 BP 119/71 02/10/25 08:56 Pulse Ox 95 02/10/25 08:56 FiO2 Intake & Output 02/09/25 02/10/25 02/10/25 18:59 06:59 18:59 Intake Total 100 Output Total 1000 650 900 Balance -1000 -550 -900 Weight 68.5 kg 68.5 kg Intake: Oral 100 Output: Urine 1000 500 900 Stool 150 Other: Voiding Method Indwelling Catheter Indwelling Catheter Indwelling Catheter - Labs CBC & Chem 7: 02/10/25 06:50 02/10/25 06:50 Labs: Abnormal Lab Results - Last 24 Hours (Table) 02/10/25 02/10/25 Range/Units 06:50 06:50 RBC 3.16 L (4.10-5.20) 10*6/uL Hgb 9.5 L (12.0-15.0) g/dL Hct 30.9 L (37.2-46.3) % MCV 97.8 H (80.0-97.0) fL MCHC 30.7 L (32.0-37.0) g/dL MPV 9.0 L (9.5-12.2) fL Chloride 109 H (98-107) mmol/L Calcium 8.3 L (8.4-10.2) mg/dL Microbiology - Last 24 Hours (Table) 02/04/25 16:34 Blood Culture - Final Blood
--- NOTE | 2025-02-10 14:14 | P.DS ---
Providers Date of admission: 02/04/25 15:41 Expected date of discharge: 02/10/25 Attending physician: Barbara Estrella Consults: 02/04/25 16:18 Consult Physician Routine Consulting Provider: Arjun Perea Consult Reason/Comments: stomal herniation? Do you want consulting provider notified?: Yes 02/05/25 12:17 Consult Physician Urgent Consulting Provider: Jason Ring Consult Reason/Comments: Right lower extremity wound with drainage Do you want consulting provider notified?: Yes Primary care physician: Will Price Hospital Course: Final diagnosis Abdominal pain and constipation secondary to hypothyroidism Severe hypothyroidism with high TSH more than 100 and T4 low at 0.34 Paroxysmal atrial fibrillation currently rate controlled History of spinal cord injury wheelchair-bound Right leg wound cellulitis, present on admission with culture showing Proteus Mirabellis, Pseudomonas and MRSA Catheter associated UTI. Present on admission with urine culture finalizing showing Pseudomonas GI prophylaxis DVT prophylaxis Full code Discharge disposition Patient is being discharged in a stable condition with guarded prognosis to [facility] where she resides. Patient will follow-up with Dr. Price in the outpatient setting upon discharge. Patient is to continue with oral Cipro twice daily for the next 3 days and close outpatient follow-up with infectious disease and wound care center as scheduled. Total time taken is greater than 35 minutes. Hospital course This is a 79-year-old female who was recently admitted with atrial fibrillation with RVR along with concerns of sepsis with right lower extremity wounds along with a decubitus ulcer that had been chronic and requiring debridements being closely monitored with infectious disease. Patient also with associated Irwin catheter urinary tract infection present on admission that was positive for Pseudomonas aeruginosa. Wound cultures also showing Pseudomonas aeruginosa with MRSA and Proteus Mirabellis tolerated by wound care recommend to continuing with wound care as discussed below. Patient will continue on oral Cipro 500 mg twice daily for the next 3 days per ID recommendations with close outpatient follow- up. Patient was evaluated by cardiology making adjustments to medications and metoprolol was increased and patient is continued on Eliquis. Patient with chronic indwelling Irwin catheter recommend Irwin catheter care along with exchanging at least monthly as patient does have history of recurrent urinary tract infections. Patient has been cleared by consultations and will be retur [facility] to [facility]. Please refer to consultation notes for further HPI. Currently no reports of chest pain, shortness of breath, or palpitations. Patient is afebrile. No reports of nausea or vomiting and patient is tolerating diet. Patient will be going to [facility] on the baeza today. Guarded prognosis and high risk for readmissions given significant comorbidities and ongoing infection. Physical exam: Gen: This is a 78-year-old female who is awake, alert and oriented x 3, well- developed, elderly appearing HEENT: Head is atraumatic, normocephalic. Pupils equal, round. Sclerae is anicteric. NECK: Supple. No JVD. No lymphadenopathy. No thyromegaly. LUNGS: Clear to auscultation. No wheezes or rhonchi. No intercostal retractions. HEART: Regular rate and rhythm. No murmur. ABDOMEN: Soft. Bowel sounds are present. No masses. No tenderness. EXTREMITIES: No pedal edema. No calf tenderness. NEUROLOGICAL: Patient is awake, alert and oriented x3. Cranial nerves 2 through 12 are grossly intact. Fusilli weak Please refer to medication reconciliation sheet for a list of medications. The impression and plan of care has been dictated by Liliya Florez, Nurse Practitioner as directed. Dr. Sameer MD I have performed a history and examination and MDM of this patient, discussed the same with the dictator, and agree with the dictator's assessment and plan as written ,documented as a scribe. Based on total visit time, I have performed more than 50% of the visit. Patient Condition at Discharge: Fair Plan - Discharge Summary Discharge Rx Participant: No New Discharge Prescriptions: New Ciprofloxacin HCl [Cipro] 500 mg PO BID 3 Days #6 tab Ipratropium-Albuterol Nebulize [Duoneb 0.5 mg-3 mg/3 ml Soln] 3 ml INHALATION RT-TID each Metoprolol Tartrate [Lopressor] 25 mg PO BID tab Levothyroxine Sodium [Synthroid] 25 mcg PO DAILY@0630 tab Continue Midodrine HCl [ProAmatine] 10 mg PO BID@0900,1800 Ferrous Sulfate [Iron] 325 mg PO DAILY@0900 Apixaban [Eliquis] 5 mg PO BID@0900,2100 Alendronate Sodium [Fosamax] 70 mg PO FR busPIRone HCl [Buspar] 5 mg PO TID@0900,1300,2100 L.acidoph,Paracasei, B.lactis [Probiotic] 1 cap PO DAILY@0900 Loratadine [Claritin] 10 mg PO DAILY@0900 guaiFENesin SYRUP 100MG/5ML [Robitussin] 200 mg PO Q4H PRN PRN Reason: Cough Prostat Awc 30 ml PO TID@0900,1300,2099 Potassium Chloride ER [K-Dur 10] 10 meq PO DAILY@0900 Famotidine [Pepcid] 40 mg PO HS@2100 FLUoxetine HCL [PROzac] 40 mg PO DAILY@0900 Multivitamins, Thera [Multivitamin (formulary)] 1 tab PO DAILY@0900 Mirtazapine [Remeron] 30 mg PO HS@2099 Acetaminophen Tab [Tylenol] 650 mg PO Q6H PRN PRN Reason: Pain Lactulose [Constulose] 20 gm PO BID PRN PRN Reason: Constipation Changed oxyCODONE-APAP 10-325MG [Percocet 10-325 mg] 1 tab PO Q4H #4 tab Discontinued Nitrofurantoin Monohyd/M-Cryst [Macrobid] 100 mg PO BID@0900,2099 Discharge Medication List Alendronate Sodium [Fosamax] 70 mg PO FR 01/26/24 [History] Apixaban [Eliquis] 5 mg PO BID@00,209901/26/24 [History] Ferrous Sulfate [Iron] 325 mg PO DAILY@89901/26/24 [History] L.acidoph,Paracasei, B.lactis [Probiotic] 1 cap PO DAILY@0901/26/24 [History] Loratadine [Claritin] 10 mg PO DAILY@89901/26/24 [History] Midodrine HCl [ProAmatine] 10 mg PO BID@0900,1800 01/26/24 [History] Mirtazapine [Remeron] 30 mg PO HS@209901/26/24 [History] Multivitamins, Thera [Multivitamin (formulary)] 1 tab PO DAILY@89901/26/24 [History] busPIRone HCl [Buspar] 5 mg PO TID@0900,1300,2100 01/26/24 [History] Acetaminophen Tab [Tylenol] 650 mg PO Q6H PRN 02/04/25 [History] FLUoxetine HCL [PROzac] 40 mg PO DAILY@0900 02/04/25 [History] Famotidine [Pepcid] 40 mg PO HS@209902/04/25 [History] Lactulose [Constulose] 20 gm PO BID PRN 02/04/25 [History] Potassium Chloride ER [K-Dur 10] 10 meq PO DAILY@0900 02/04/25 [History] Prostat Awc 30 ml PO TID@0900,1300,209902/04/25 [History] guaiFENesin SYRUP 100MG/5ML [Robitussin] 200 mg PO Q4H PRN 02/04/25 [History] Ciprofloxacin HCl [Cipro] 500 mg PO BID 3 Days #6 tab 02/10/25 [Rx] Ipratropium-Albuterol Nebulize [Duoneb 0.5 mg-3 mg/3 ml Soln] 3 ml INHALATION RT-TID each 02/10/25 [Rx] Levothyroxine Sodium [Synthroid] 25 mcg PO DAILY@0630 tab 02/10/25 [Rx] Metoprolol Tartrate [Lopressor] 25 mg PO BID tab 02/10/25 [Rx] oxyCODONE-APAP 10-325MG [Percocet 10-325 mg] 1 tab PO Q4H #4 tab 02/10/25 [Rx] Follow up Appointment(s)/Referral(s): Maxim Hernandez MD [Medical Doctor] - 1 Week Will Price MD [Primary Care Provider] - 1-2 days Arjun Perea MD [STAFF PHYSICIAN] - 1 Week Jason Ring MD [STAFF PHYSICIAN] - 1 Week Activity/Diet/Wound Care/Special Instructions: Patient is going to [facility] Activity as tolerated Patient to continue on Cipro 500 mg twice daily for 3 days per ID recommendations Continue to follow-up with cardiology outpatient Follow-up with general surgery outpatient Patient to continue on a heart healthy diet Continue applying Aquacel over every 48 hours to the right leg wound or if becoming soiled Follow-up with infectious disease outpatient Follow-up with the wound care center outpatient Continue indwelling Irwin catheter with Irwin catheter care Discharge Disposition: TRANSFER TO SNF/ECF
[2025-02-10 15:27] VITALS: BP 98/60; PULSE 67; TEMP 98
--- NOTE | 2025-02-10 16:41 | P.PN ---
Subjective Progress Note Date: 02/09/25 Principal diagnosis: Reason for follow-up is right lower extremity infected wound Patient is 79-year-old female with a past medical history significant for atrial fibrillation sepsis hypertension bladder and colon cancer history of stage IV sacral pressure ulcer for the patient did have a diverting colostomy in April 2024, now present to the hospital with abdominal pain and has a wound to the right lower leg with concern for infection prompting this consultation. On today's evaluation that is 02/09/2025, patient has been afebrile, patient is breathing comfortably and is currently on room air, patient denies having any chest pain and cough, patient denies nausea vomiting or diarrhea and no abdominal pain denies pain to the right lower extremity. Patient did have a creatinine 0.54 no CBC was done today Objective - Vital Signs Vital signs: Vital Signs Temp 97.2 F L 02/09/25 08:38 Pulse 74 02/09/25 08:40 Resp 18 02/09/25 08:40 BP 93/57 02/09/25 08:38 Pulse Ox 93 L 02/09/25 08:38 FiO2 Intake & Output 02/08/25 02/09/25 02/09/25 18:59 06:59 18:59 Intake Total 358 120 Output Total 900 1350 Balance -542 -1230 Weight 68.5 kg Intake: Oral 358 120 Output: Urine 575 1200 Stool 25 150 Urine/Stool Mix 300 Other: Voiding Method Indwelling Catheter Indwelling Catheter Indwelling Catheter # Bowel Movements 2 - Exam GENERAL DESCRIPTION: An elderly female lying in bed in no distress RESPIRATORY SYSTEM: Unlabored breathing , decreased breath sounds at bases HEART: S1 S2 regular rate and rhythm , ABDOMEN: Soft , no tenderness EXTREMITIES: Right leg wound is currently dressed - Labs CBC & Chem 7: 02/10/25 06:50 02/10/25 06:50 Labs: Abnormal Lab Results - Last 24 Hours (Table) 02/08/25 Range/Units 06:00 Urine Blood Small H (Negative) Ur Leukocyte Esterase Small H (Negative) Urine RBC 14 H (0-5) /hpf Urine WBC 10 H (0-5) /hpf Urine Mucus Rare H (None) /hpf Microbiology - Last 24 Hours (Table) 02/05/25 11:06 Anaerobic Culture - Final Leg - Right Proteus mirabilis Assessment and Plan (1) Leg wound, right Current Visit: Yes Status: Acute Code(s): S81.801A - UNSPECIFIED OPEN WOUND, RIGHT LOWER LEG, INITIAL ENCOUNTER SNOMED Code(s): 88145257844281920 (2) Cellulitis of right leg Current Visit: Yes Status: Acute Code(s): L03.115 - CELLULITIS OF RIGHT LOWER LIMB SNOMED Code(s): 27249858215863711 (3) Catheter-associated urinary tract infection Current Visit: Yes Status: Acute Code(s): T83.511A - I/I REACT D/T INDWELLING URETHRAL CATHETER, INIT; N39.0 - URINARY TRACT INFECTION, SITE NOT SPECIFIED SNOMED Code(s): 134776761 Plan: 1patient presenting to the hospital for abdominal pain mostly suprapubic area did have chronic indwelling catheter with features of cystitis seen on CT positive UA concerning for catheter associated UTI likely from enteric gram- negative pathogen 2patient with right lower extremity wound likely a stage III pressure ulcer and secondary cellulitis will need to cover for the gram-negative as well as gram- positive keeping in mind patient jail resident 3culture have been obtained results which is currently growing present MRSA and Pseudomonas aeruginosa, urine is also growing Pseudomonas 4patient continuelocal wound care with the dry Aquacel silver dressing change q. 48-hour 5patient afebrile and white count has been normal 6patient to continue vancomycin pharmacy to dose and cefepime, will finish therapy with oral Cipro discussed with the FIELD PROFESSIONAL for admitting team Dictation was produced using [employer] dictation software. please excuse any gram matical, word or spelling errors. Time with Patient: Less than 30
--- NOTE | 2025-02-10 16:42 | P.PN ---
Subjective Progress Note Date: 02/10/25 Principal diagnosis: Reason for follow-up is right lower extremity infected wound Patient is 79-year-old female with a past medical history significant for atrial fibrillation sepsis hypertension bladder and colon cancer history of stage IV sacral pressure ulcer for the patient did have a diverting colostomy in April 2024, now present to the hospital with abdominal pain and has a wound to the right lower leg with concern for infection prompting this consultation. On today's evaluation that is 02/10/2025, Patient is afebrile this morning patient denies having any chest pain shortness of breath or any worsening cough, the patient is currently on room air, patient denies any abdominal pain no diarrhea no nausea no vomiting. Patient white count is 12.26, creatinine 0.69 Objective - Vital Signs Vital signs: Vital Signs Temp 98.4 F 02/10/25 08:56 Pulse 72 02/10/25 12:55 Resp 16 02/10/25 11:47 BP 104/62 02/10/25 11:47 Pulse Ox 98 02/10/25 11:47 FiO2 Intake & Output 02/09/25 02/10/25 02/10/25 18:59 06:59 18:59 Intake Total 100 480 Output Total 1000 650 900 Balance -1000 -550 -420 Weight 68.5 kg 68.5 kg Intake: Oral 100 480 Output: Urine 1000 500 900 Stool 150 Other: Voiding Method Indwelling Catheter Indwelling Catheter Indwelling Catheter - Exam GENERAL DESCRIPTION: An elderly female lying in bed in no distress RESPIRATORY SYSTEM: Unlabored breathing , decreased breath sounds at bases HEART: S1 S2 regular rate and rhythm , ABDOMEN: Soft , no tenderness EXTREMITIES: Right leg wound is currently healed with no swelling redness or drainage - Labs CBC & Chem 7: 02/10/25 06:50 02/10/25 06:50 Labs: Abnormal Lab Results - Last 24 Hours (Table) 02/10/25 02/10/25 Range/Units 06:50 06:50 RBC 3.16 L (4.10-5.20) 10*6/uL Hgb 9.5 L (12.0-15.0) g/dL Hct 30.9 L (37.2-46.3) % MCV 97.8 H (80.0-97.0) fL MCHC 30.7 L (32.0-37.0) g/dL MPV 9.0 L (9.5-12.2) fL Chloride 109 H (98-107) mmol/L Calcium 8.3 L (8.4-10.2) mg/dL Microbiology - Last 24 Hours (Table) 02/04/25 16:34 Blood Culture - Final Blood Assessment and Plan (1) Leg wound, right Current Visit: Yes Status: Acute Code(s): S81.801A - UNSPECIFIED OPEN WOUND, RIGHT LOWER LEG, INITIAL ENCOUNTER SNOMED Code(s): 34701653405951913 (2) Cellulitis of right leg Current Visit: Yes Status: Acute Code(s): L03.115 - CELLULITIS OF RIGHT LOWER LIMB SNOMED Code(s): 47858065024488314 (3) Catheter-associated urinary tract infection Current Visit: Yes Status: Acute Code(s): T83.511A - I/I REACT D/T INDW ELLING URETHRAL CATHETER, INIT; N39.0 - URINARY TRACT INFECTION, SITE NOT SPECIFIED SNOMED Code(s): 821798219 Plan: 1patient presenting to the hospital for abdominal pain mostly suprapubic area did have chronic indwelling catheter with features of cystitis seen on CT positive UA concerning for catheter associated UTI likely from enteric gram- negative pathogen 2patient with right lower extremity wound likely a stage III pressure ulcer and secondary cellulitis will need to cover for the gram-negative as well as gram- positive keeping in mind patient intermediate resident 3culture have been obtained results which is currently growing present MRSA and Pseudomonas aeruginosa, urine is also growing Pseudomonas 4patient continuelocal wound care with the dry Aquacel silver dressing change q. 48-hour 5patient afebrile and white count has been normal 6patient has received adequate vancomycin pharmacy to dose and cefepime during hospital stay, will finish therapy with oral Cipro and close outpatient follow- up Dictation was produced using [employer] dictation software. please excuse any grammatical, word or spelling errors.
[2025-02-11] MEDS ORDERED: VANCOMYCIN TROUGH DUE 1 EACH MISC MISCELLANE ONE (14:00)
== END 2025-02-10 18:38 | DRG 698 ==
LOC: EC 07:52 → OBSVTOIN 15:41 → 3SCARD 15:41
PROVIDERS: ADMIT Hospitalist; ATTEND Hospitalist
DX: T83.511A Infection and inflammatory reaction due to indwelling urethral catheter, initial encounter (principal); L89.893 Pressure ulcer of other site, stage 3; E03.9 Hypothyroidism, unspecified; D64.9 Anemia, unspecified; F32.A Depression, unspecified; I10 Essential (primary) hypertension; L97.219 Non-pressure chronic ulcer of right calf with unspecified severity; L97.929 Non-pressure chronic ulcer of unspecified part of left lower leg with unspecified severity; L03.115 Cellulitis of right lower limb; I48.0 Paroxysmal atrial fibrillation; Z93.3 Colostomy status; N39.0 Urinary tract infection, site not specified; K44.9 Diaphragmatic hernia without obstruction or gangrene; K59.00 Constipation, unspecified; Y84.6 Urinary catheterization as the cause of abnormal reaction of the patient, or of later complication, without mention of misadventure at the time of the procedure; F41.9 Anxiety disorder, unspecified; Z79.01 Long term (current) use of anticoagulants; Z79.83 Long term (current) use of bisphosphonates; Z79.899 Other long term (current) drug therapy; Z87.891 Personal history of nicotine dependence; Z87.440 Personal history of urinary (tract) infections; Z99.3 Dependence on wheelchair; Z85.038 Personal history of other malignant neoplasm of large intestine; Z85.51 Personal history of malignant neoplasm of bladder
CPT/HCPCS: 36415; 71045; 74177; 80048; 80053; 80202; 81001; 82565; 83605; 83690; 83735; 84439; 84443; 85025; 87040; 87070; 87075; 87077; 87086; 87186; 87205; 93005; 94640; 96361; 96365; 96375; 96376; 99291